=== PATIENT | female | born 1940 | race Caucasian/White ===

== ENCOUNTER 2017-03-09 10:57 | Emergency (ER) | payer MEDICARE, BC ==
[2017-03-09 11:24] VITALS: BP 206/91
--- NOTE | 2017-03-09 11:37 | UC ---
Dental HPI - HPI Summary HPI Summary: Most of her teeth need to be removed, is working with [facility] on this but recently so she has been neglecting her dental health. Sudden increase in pain and swelling on L lower jaw. Denies fever or drainage. Pt has not been taking many of her normal medications lately, including her hypertension meds. - History of Current Complaint Chief Complaint: UCDentalProblem Stated Complaint: DENTAL PAIN Time Seen by Provider: 03/09/17 11:18 Hx Obtained From: Patient ?: No Onset/Duration: Gradual Onset, Lasting Days Severity: Moderate Aggravating: Chewing - Allergies/Home Medications Allergies/Adverse Reactions: Allergies Allergy/AdvReac Type Severity Reaction Status Date / Time Bee Venom Allergy Anaphylatic Verified 08/13/15 14:39 Shock PMH/Surg Hx/FS Hx/Imm Hx Endocrine History Of: Denies: Diabetes Cardiovascular History Of: Reports: Hypertension - does not take her pills Denies: Pacemaker/ICD GI/ History Of: Denies: Renal Disease Psychological History Of: Reports: Anxiety - ON MEDICATION FOR, Depression - ON MEDICATION FOR Cancer History Of: Denies: Breast Cancer - Surgical History Surgical History: Yes Surgery Procedure, Year, and Place: HYSTERECTOMY; LUMBAR DISCECTOMY >5 YRS AGO; Rt LEG BYPASS W/ STENTS; TONSILECTOMY CSP - DISCECTOMY WITH FUSION AND SCREWS; CAROTID ENDARECTOMY -Rt - Family History Known Family History: Positive: Hypertension - Social History Occupation: Retired Lives: Alone Alcohol Use: Daily Alcohol Amount: 6 BEERS PER DAY Substance Use Type: None Smoking Status (MU): Light Every Day Tobacco Smoker Amount Used/How Often: NON FILTERS 1 PPD X 50 YEARS DOWN TO 3 CIGARETTES PER DAY Have You Smoked in the Last Year: Yes Review of Systems Constitutional: Negative Skin: Negative Eyes: Negative ENT: Dental Pain Respiratory: Negative Cardiovascular: Negative Gastrointestinal: Negative Genitourinary: Negative Motor: Negative Neurovascular: Negative Musculoskeletal: Negative Neurological: Negative Psychological: Negative All Other Systems Reviewed And Are Negative: Yes Physical Exam Triage Information Reviewed: Yes Appearance: Well-Appearing, No Pain Distress, Well-Nourished Vital Signs: Initial Vital Signs Temp 98.3 F 03/09/17 11:20 Pulse 91 03/09/17 11:20 Resp 18 03/09/17 11:20 BP 206/91 03/09/17 11:20 Pulse Ox 94 05/15/17 11:20 Vital Signs Reviewed: Yes Eye Exam: Normal Eyes: Positive: Conjunctiva Clear ENT: Positive: Normal ENT inspection, Hearing grossly normal, Pharynx normal, TMs normal. Negative: Tonsillar swelling, Tonsillar exudate Dental: Positive: Percussion Tenderness @ - #12 and 13, Gross Decay/Caries @ - most teeth decayed to gums, Abscess @ - #12 and 13 Respiratory: Positive: Normal breath sounds, Decreased breath sounds Cardiovascular Exam: Normal Cardiovascular: Positive: RRR, No Murmur Musculoskeletal Exam: Normal Musculoskeletal: Positive: ROM Intact Neurological Exam: Normal Neurological: Positive: Alert Psychological Exam: Normal Skin Exam: Normal Dental Complaint Course/Dx - Course Course Of Treatment: Educated pt on importance of taking HTN meds, pt states she will take them all week leading up to her PCP apt on Thursday - Differential Dx/Diagnosis Provider Diagnoses: Dental abscess. hypertension Discharge - Discharge Plan Condition: Stable Disposition: HOME Prescriptions: Penicillin VK TAB 500 MG(NF) [Penicillin VK 500 mg Tab(NF)] 500 mg PO TID #21 tab Patient Education Materials: Dental Abscess (ED), Hypertension (ED) Referrals: Bhupinder Cruz MD [Primary Care Provider] - 4 Days Additional Instructions: Re-start taking blood pressure medicine and follow up with your primary care provider as planned on Thursday! If you have severe head pain, chest pain, trouble breathing, confusion, or trouble with your coordination at any time, please dial 911. Follow up with Delilah Leon to help with your dental care.
== END 2017-03-09 11:43 | disposition home or self-care (01) ==
LOC: UCEAST 10:57
DX: K04.7 Periapical abscess without sinus (principal); I10 Essential (primary) hypertension; F41.8 Other specified anxiety disorders; Z90.710 Acquired absence of both cervix and uterus; Z91.030 Bee allergy status; F17.210 Nicotine dependence, cigarettes, uncomplicated
CPT/HCPCS: 99212; G0463

== ENCOUNTER 2017-03-26 11:08 | Inpatient (IN) | payer MEDICARE, BC ==
[2017-03-26] MEDS ORDERED: NS 0.9% 1000 ML* 1,000 ML IV ONE (11:29)
[2017-03-26] MEDS ORDERED: Pantoprazole IV* 40 MG IV ONE (11:29)
[2017-03-26 12:11] LABS: Hematocrit 32 % (35-47); Hemoglobin 10.6 g/dl (12.0-16.0); Mean Corpuscular HGB Conc 33 g/dl (31-36); Mean Corpuscular Hemoglobin 31 pg (27-31); Mean Corpuscular Volume 93 fL (80-97); Mean Platelet Volume 7 um3 (7.4-10.4); Red Blood Count 3.46 10^6/ul (4.0-5.4); Red Cell Distribution Width 13 % (10.5-15); White Blood Count 9.5 10^3/ul (3.5-10.8)
[2017-03-26] MEDS: Pantoprazole IV* 80 MG in NS 0.9% 250 ML* 250 ML IV SCH ×2 (12:20→23:39)
[2017-03-26 12:23] LABS: Albumin 3.3 g/dL (3.2-5.2); BUN/Creatinine Ratio 47.4 (8-20); Calcium 8.9 mg/dL (8.6-10.3); EGFR African American 92.3 (>60); EGFR Non-African American 71.8 (>60); Globulin 2.9 g/dL (2-4); Potassium 3.9 mmol/L (3.5-5.0); Total Bilirubin 0.7 mg/dL (0.2-1.0); Total Protein 6.2 g/dL (6.4-8.9)
[2017-03-26] MEDS ORDERED: Albuterol HFA INHALER* 8 gm MDI INH PRN (13:57)
[2017-03-26] MEDS ORDERED: Albuterol/Ipratropium NEB.SOL* Albuterol 2.5 MG/Ipratropium 0.5 MG 3 ML INH PRN (13:57)
[2017-03-26] MEDS ORDERED: Cyclobenzaprine TAB* 10 MG PO PRN (13:57)
[2017-03-26] MEDS ORDERED: Spiriva Inhaler DEVICE* 1 EACH DEVICE INH ONE (15:00)
[2017-03-26] MEDS: NS 0.9% 1000 ML* 1,000 ML IV SCH (15:43)
--- NOTE | 2017-03-26 16:54 | CONS ---
GASTROENTEROLOGY CONSULTATION DATE OF CONSULTATION: 03/26/2017. REASON FOR CONSULTATION: Question GI bleed. HISTORY OF PRESENT ILLNESS: This is a 77-year-old woman with a past medical history notable for hypertension, peripheral vascular disease, and COPD. Yesterday, she had extraction of multiple teeth in her mouth due to poor dentition and was discharged from the dentist office. Last night she had excessive bleeding from her mouth from the dental extraction, which eventually calmed down. She awoke this morning and did have a significant amount of blood in the bed as well as had one to two black stools. She presented to the emergency room where she was hemodynamically stable. She denies any prior history of melena preceding this. She denies any abdominal pain. She has had gastro-intestinal work-up in the past. In 2014, she underwent an upper endoscopy for abdominal discomfort and was found to have mild antral gastritis. At that time, she also had a colonoscopy where a small polyp was removed and she also had sigmoid diverticulosis. Overall, she has been feeling generally well lately. PAST MEDICAL HISTORY: Includes, COPD, hypertension, hyperlipidemia and peripheral vascular disease. MEDICATIONS: Her medicines she states that she has not been compliant with, but do include Albuterol inhaler, adult aspirin, Lipitor, Wellbutrin, Plavix, Hydrochlorothiazide, Lisinopril, Omeprazole, Paxil, Spiriva. Of note, the patient states that she did not take her Plavix for quite some time. REVIEW OF SYSTEMS: She denies any abdominal pain, dysphagia, or heartburn. PHYSICAL EXAM: The patient is a well-appearing woman in no acute distress. She is edentulous. Vital Signs: Blood pressure is 146/63, heart rate is 94 and regular. Lungs: Clear. Cardiac: Exam reveals a regular rhythm without murmur. Abdomen: Soft without tenderness. Bowel sounds are normoactive. DIAGNOSTIC STUDIES/LAB DATA: Data included a hemoglobin of 10.6, compared to July of 2016 it was 14.1; BUN of 37; creatinine of 0.78. IMPRESSION: [id number]-old woman with an extensive dental extraction yesterday, presenting with excessive bleeding postoperatively and now with black stools. It seems quite likely that the black stools are from swallowed blood, not from a primary gastrointestinal process. She will be admitted for observation and if she does have persistent melena or a drop in her hemoglobin, now that her oral bleeding has stopped, then we can consider an upper endoscopy. [id number]/[facility] #: [id number] CHRISTAL
[2017-03-26] MEDS: PARoxetine HCL TAB* 20 MG PO SCH (20:38)
[2017-03-26] MEDS: traZODone TAB* 50 MG TAB PO PRN (21:12)
[2017-03-26 21:40] LABS: Hematocrit 26 % (35-47); Hemoglobin 8.6 g/dl (12.0-16.0)
--- NOTE | 2017-03-26 22:10 | HP ---
HOSPITAL MEDICINE HISTORY AND PHYSICAL: DATE OF ADMISSION: 03/26/17 PRIMARY CARE PHYSICIAN: Dr. Means. ATTENDING PHYSICIAN: Dr. Elana Caldera *(dictation provided by Taniya Joyner NP) . CHIEF COMPLAINT: Dark tarry stool. HISTORY OF PRESENT ILLNESS: Ms. Frias is a 77-year-old female with a past medical history of COPD with continued smoking, hypertension, hyperlipidemia, who presents today to the hospital with concern for black stools. Ms. Frias states that she was feeling in her normal state of health up until yesterday at which time she had 10 teeth removed from her lower jaw at the dentist's office. Returning home, she had significant bleeding. She was able to sleep through the night. When she woke in the morning, she felt dizzy. When going to let her dogs out, she states she collapsed to the floor, but did not lose consciousness. She went to lie on the couch for a bit and then got up and crawled to the bathroom where she had 2 soft black stools. She had an additional black stool in the emergency room. Ms. Frias is noted per her pharmacy to be on aspirin and Plavix. She states that she is not consistent with taking any of her medications and has not taken them recently. She denies any other complaints. She was feeling well before the teeth were removed. She has had no recent fevers, chills, cough, chest pain, or shortness of breath. She said she felt a little bit nauseous with some lower abdominal pain this morning, but it was very mild. In the emergency room, Ms. Frias had labs which showed mild anemia with a hemoglobin of 10.6. Her last hemoglobin on 08/19/16 was 14.1. Her BUN is elevated to 37. Creatinine is normal. PAST MEDICAL HISTORY: Hypertension; hyperlipidemia; peripheral vascular disease ; COPD, on 2 L nasal cannula at home; degenerative disk disease. PAST SURGICAL HISTORY: Tonsillectomy and appendectomy as a child; partial hysterectomy, ovaries intact, 2006; cervical diskectomy, C5-C6 and C6-C7, with fusion and plating, 2010; lumbar laminectomy to L3-4, L4-5, in 2011; right external iliac artery stenting; left carotid endarterectomy, February 2014. MEDICATIONS: 1. Albuterol sulfate 2 puffs inhaled four times a day p.r.n. 2. Aspirin 325 mg p.o. daily. 3. Atorvastatin 80 mg p.o. q.p.m. 4. Bupropion XL 150 mg p.o. daily. 5. Clopidogrel 75 mg p.o. q.p.m. 6. Cyanocobalamin 1000 mcg p.o. daily. 7. Hydrochlorothiazide 25 mg p.o. daily. 8. Lisinopril 10 mg p.o. q.p.m. 9. Omeprazole 20 mg p.o. daily. 10. Trazodone 50 to 100 mg p.o. bedtime p.r.n. 11. Albuterol inhaler p.r.n. 12. Albuterol nebulizer p.r.n. 13. Cyclobenzaprine 10 mg p.o. t.i.d. p.r.n. 14. Paroxetine 20 mg p.o. q.p.m. 15. Spiriva 1 cap inhaled daily. ALLERGIES: BEE VENOM. FAMILY HISTORY: Mother at age 62 with unknown cause. Father had lung cancer, he was a smoker and at age 48. Brother had a MD at 47. Paternal grandfather from rectal cancer. SOCIAL HISTORY: The patient is a continued smoker, but she says she is down to 3 cigarettes a day. She states she drinks 4 beers per day. She never had any symptoms of alcohol withdrawal. She would like her daughter, Kaylah Hutchinson, and her son, Eduardo Carvajal, to be the healthcare proxies. REVIEW OF SYSTEMS: A 14-point review of systems was completed with Ms. Lee and all those not mentioned above were negative. PHYSICAL EXAMINATION VITAL SIGNS: Temperature 97.1, heart rate 97, respiratory rate 25, O2 saturation 91% on room air, blood pressure 128/61. ASSESSMENT AND PLAN: Ms. Lee is a 77-year-old female with past medical history of chronic obstructive pulmonary disease, hypertension, hyperlipidemia, and peripheral vascular disease, who presents to the hospital today with concern for black stool in the setting of bleeding after extraction of 10 teeth yesterday. Our plans are for observation in the hospital for the followin. Black tarry stools with concern for upper gastrointestinal bleed: It is possible that the patient has an upper gastrointestinal bleed. She is noted to be on aspirin and Plavix but states she does not take it with any consistency or frequency and has not taken them recently. She reports significant bleeding from her teeth and perhaps the dark tarry stools are just reflective of that; however, she seems to have bled quite profusely as she was dizzy and significantly weak at home. Our plans will be to recheck hemoglobin later this evening. Gastroenterology has been called and Dr. Coaets will be seeing the patient in consultation. A Protonix drip has been started. The patient will have 2 large bore IVs at all times. Her antihypertensives will be held. She will have a clear liquid diet. 2. High blood pressure: The patient's blood pressure is in the 120s right now. Plan to hold her hydrochlorothiazide and lisinopril. 3. Hyperlipidemia: Resume her atorvastatin when she is taking oral. 4. DVT prophylaxis: With SCDs only in the setting of the gastrointestinal bleed. 5. Code status is DNR and a MOLST form is completed. TIME SPENT: Approximately 60 minutes was spent on the admission of this patient , more than half the time was spent with her at the bedside reviewing the events leading up to this hospitalization, performing the physical examination, and reviewing the plan of care. TANIYA JOYNER NP CC: Dr. Means* [id number]/[facility] #: [id number] MTDWalter
[2017-03-27] MEDS: NS 0.9% 1000 ML* 1,000 ML IV SCH ×2 (00:43→23:50)
[2017-03-27 01:06] LABS: Hematocrit 24 % (35-47); Hemoglobin 7.8 g/dl (12.0-16.0)
[2017-03-27] MEDS: Tiotropium CAP.INH* CAP.INH/18 MCG INH SCH (07:58)
[2017-03-27 08:44] LABS: Hematocrit 28 % (35-47); Hemoglobin 9.2 g/dl (12.0-16.0)
--- NOTE | 2017-03-27 09:45 | ED ---
Carlos Winn Benjamin, scribed for Abimael Rodriguez MD on 03/26/17 at 1133 . GI/ HPI - HPI Summary HPI Summary: 77yo female BIB EMS for rectal bleeding. Pt is s/p dental extraction of her lower teeth yesterday. There is no signs of trauma, and pt was found in bed covered in bright red blood this morning by her daughter. Per pt, she has been bleeding since last night. Pt has chronic cough. No prior rectal bleeding hx but hx of COPD. Pt is a heavy drinker and a smoker. blood sugar was 141 en route. - History of Current Complaint Chief Complaint: EDGIBleed Time Seen by Provider: 03/26/17 11:26 Stated Complaint: BLEED Hx Obtained From: Patient, EMS Onset/Duration: Started Hours Ago, Atraumatic, Resolved Timing: Constant Severity: Mild Current Severity: Mild Vaginal Bleeding Description: Bright Red Pain Intensity: 3 Associated Signs and Symptoms: Positive: Cough - chronic, Other: - rectal bleeding - Allergy/Home Medications Allergies/Adverse Reactions: Allergies Allergy/AdvReac Type Severity Reaction Status Date / Time Bee Venom Allergy Anaphylatic Verified 03/26/17 11:16 Shock Home Medications: Home Medications Albuterol HFA INHALER* [Ventolin HFA Inhaler*] 2 puff INH QID PRN 03/26/17 [ History Confirmed 03/26/17] Albuterol Sulfate [Proair Respiclick] 2 puff INH QID PRN 03/26/17 [History Confirmed 03/26/17] Albuterol/Ipratropium NEB.BEBETO* [Duoneb (Albuterol 2.5 MG/Ipratropium 0.5 MG)] 1 neb INH QID PRN 03/26/17 [History Confirmed 03/26/17] Aspirin TAB* [Aspirin 325 MG TAB*] 325 mg PO DAILY 03/26/17 [History Confirmed 03/26/17] Bupropion XL* [Wellbutrin XL *] 150 mg PO DAILY 03/26/17 [History Confirmed 11/11] Cyanocobalamin TAB* [Vitamin B12 TAB*] 1,000 mcg PO DAILY 03/26/17 [History Confirmed 03/26/17] Cyclobenzaprine TAB* [Flexeril 10 MG TAB*] 10 mg PO TID PRN 03/26/17 [History Confirmed 03/26/17] Omeprazole CAP* [Prilosec CAP* 20 MG] 20 mg PO DAILY 03/26/17 [History Confirmed 03/26/17] Tiotropium CAP.INH* [Spiriva CAP.INH*] 1 cap.inh INH DAILY 03/26/17 [History Confirmed 03/26/17] PMH/Surg Hx/FS Hx/Imm Hx Endocrine/Hematology History: Denies: Hx Diabetes Cardiovascular History: Reports: Hx Coronary Artery Disease - LEFT CAROTID ENDARTERECTOMY-2013- LEFT-JUAN, Hx Hypertension - does not take her pills, Hx Peripheral Vascular Disease - RIGHT LEG SURGERY- VASCULAR- 3 YEARS AGO-JUAN Denies: Hx Pacemaker/ICD Respiratory History: Comment Only: Other Respiratory Problems/Disorders - COPD History: Denies: Hx Renal Disease Sensory History: Reports: Hx Cataracts - BILATERAL, Hx Contacts or Glasses - GLASSES Denies: Hx Hearing Aid Opthamlomology History: Reports: Hx Cataracts - BILATERAL, Hx Contacts or Glasses - GLASSES Psychiatric History: Reports: Hx Anxiety - ON MEDICATION FOR, Hx Depression - ON MEDICATION FOR Denies: Hx Panic Disorder - Cancer History Hx Chemotherapy: No Hx Radiation Therapy: No - Surgical History Surgery Procedure, Year, and Place: HYSTERECTOMY; LUMBAR DISCECTOMY >5 YRS AGO; Rt LEG BYPASS W/ STENTS; TONSILECTOMY CSP - DISCECTOMY WITH FUSION AND SCREWS; CAROTID ENDARECTOMY -Rt Hx Anesthesia Reactions: No Infectious Disease History: No Infectious Disease History: Denies: Traveled Outside the [place] in Last 30 Days - Family History Known Family History: Positive: Hypertension - Social History Occupation: Retired Lives: Alone Alcohol Use: Daily Alcohol Amount: 6 BEERS PER DAY Substance Use Type: Reports: None Smoking Status (MU): Light Every Day Tobacco Smoker Amount Used/How Often: NON FILTERS 1 PPD X 50 YEARS DOWN TO 3 CIGARETTES PER DAY Have You Smoked in the Last Year: Yes Review of Systems Constitutional: Negative Eyes: Negative ENT: Negative Cardiovascular: Negative Positive: Cough Gastrointestinal: Other - rectal bleeding Genitourinary: Negative Musculoskeletal: Negative Skin: Negative Neurological: Negative Psychological: Normal All Other Systems Reviewed And Are Negative: Yes Physical Exam Triage Information Reviewed: Yes Vital Signs On Initial Exam: Initial Vitals Temp Pulse Resp BP Pulse Ox 97.1 F 91 24 125/54 95 03/26/17 11:14 03/26/17 11:14 03/26/17 11:14 03/26/17 11:14 03/26/17 11:14 Vital Signs Reviewed: Yes Appearance: Positive: Well-Appearing - No current bleeding, No Pain Distress, Well-Nourished Skin: Positive: Warm, Skin Color Reflects Adequate Perfusion, Dry Head/Face: Positive: Normal Head/Face Inspection Eyes: Positive: Other: - recent dental extraction of the lower jaw . No current bleeding ENT: Positive: Normal ENT inspection Neck: Positive: Supple, Nontender Respiratory/Lung Sounds: Positive: Clear to Auscultation, Breath Sounds Present Cardiovascular: Positive: RRR Abdomen Description: Positive: Nontender, Soft Bowel Sounds: Positive: Present Musculoskeletal: Positive: Normal Neurological: Positive: Normal Psychiatric: Positive: Affect/Mood Appropriate Diagnostics - Vital Signs Vital Signs Temp Pulse Resp BP Pulse Ox 03/26/17 11:14 97.1 F 91 24 125/54 95 - Laboratory Lab Results: Lab Results 03/26/17 03/26/17 03/26/17 Range/Units 11:20 11:20 11:20 WBC 9.5 (3.5-10.8) 10^3/ul RBC 3.46 L (4.0-5.4) 10^6/ul Hgb 10.6 L (12.0-16.0) g/dl Hct 32 L (35-47) % MCV 93 (80-97) fL MCH 31 (27-31) pg MCHC 33 (31-36) g/dl RDW 13 (10.5-15) % Plt Count 324 (150-450) 10^3/ul MPV 7 L (7.4-10.4) um3 Neut % (Auto) 83.3 H (38-83) % Lymph % (Auto) 10.4 L (25-47) % [place] % (Auto) 5.6 (1-9) % Eos % (Auto) 0.1 (0-6) % Baso % (Auto) 0.6 (0-2) % Absolute Neuts (auto) 7.9 H (1.5-7.7) 10^3/ul Absolute Lymphs (auto) 1.0 (1.0-4.8) 10^3/ul Absolute Monos (auto) 0.5 (0-0.8) 10^3/ul Absolute Eos (auto) 0 (0-0.6) 10^3/ul Absolute Basos (auto) 0.1 (0-0.2) 10^3/ul Absolute Nucleated RBC 0 10^3/ul Nucleated RBC % 0 INR (Anticoag Therapy) 0.94 (0.89-1.11) APTT 27.4 (26.0-36.3) seconds Sodium (133-145) mmol/L Potassium (3.5-5.0) mmol/L Chloride (101-111) mmol/L Carbon Dioxide (22-32) mmol/L Anion Gap (2-11) mmol/L BUN (6-24) mg/dL Creatinine (0.51-0.95) mg/dL Est GFR ( Amer) (>60) Est GFR (Non-Af Amer) (>60) BUN/Creatinine Ratio (8-20) Glucose (70-100) mg/dL Calcium (8.6-10.3) mg/dL Total Bilirubin (0.2-1.0) mg/dL AST (13-39) U/L ALT (7-52) U/L Alkaline Phosphatase (34-104) U/L Total Protein (6.4-8.9) g/dL Albumin (3.2-5.2) g/dL Globulin (2-4) g/dL Albumin/Globulin Ratio (1-3) Blood Type O Positive Antibody Screen Negative Crossmatch See Detail 03/26/17 Range/Units 11:20 WBC (3.5-10.8) 10^3/ul RBC (4.0-5.4) 10^6/ul Hgb (12.0-16.0) g/dl Hct (35-47) % MCV (80-97) fL MCH (27-31) pg MCHC (31-36) g/dl RDW (10.5-15) % Plt Count (150-450) 10^3/ul MPV (7.4-10.4) um3 Neut % (Auto) (38-83) % Lymph % (Auto) (25-47) % [place] % (Auto) (1-9) % Eos % (Auto) (0-6) % Baso % (Auto) (0-2) % Absolute Neuts (auto) (1.5-7.7) 10^3/ul Absolute Lymphs (auto) (1.0-4.8) 10^3/ul Absolute Monos (auto) (0-0.8) 10^3/ul Absolute Eos (auto) (0-0.6) 10^3/ul Absolute Basos (auto) (0-0.2) 10^3/ul Absolute Nucleated RBC 10^3/ul Nucleated RBC % INR (Anticoag Therapy) (0.89-1.11) APTT (26.0-36.3) seconds Sodium 135 (133-145) mmol/L Potassium 3.9 (3.5-5.0) mmol/L Chloride 101 (101-111) mmol/L Carbon Dioxide 28 (22-32) mmol/L Anion Gap 6 (2-11) mmol/L BUN 37 H (6-24) mg/dL Creatinine 0.78 (0.51-0.95) mg/dL Est GFR ( Amer) 92.3 (>60) Est GFR (Non-Af Amer) 71.8 (>60) BUN/Creatinine Ratio 47.4 H (8-20) Glucose 137 H (70-100) mg/dL Calcium 8.9 (8.6-10.3) mg/dL Total Bilirubin 0.70 (0.2-1.0) mg/dL AST 22 (13-39) U/L ALT 11 (7-52) U/L Alkaline Phosphatase 48 (34-104) U/L Total Protein 6.2 L (6.4-8.9) g/dL Albumin 3.3 (3.2-5.2) g/dL Globulin 2.9 (2-4) g/dL Albumin/Globulin Ratio 1.1 (1-3) Blood Type Antibody Screen Crossmatch Result Diagrams: 03/27/17 08:30 03/26/17 11:20 Lab Statement: Any lab studies that have been ordered have been reviewed, and results considered in the medical decision making process. GIGU Course/Dx - Course Course Of Treatment: Discussed with Dr. Coates (GI) at 13:38. Assessment/Plan: Ms. Jesus Frias was found this AM with a lot of blood on the bed (not on the pillow) and had passed a black stool. She did have several dental extractions yesterday and admits to swallowing blood but this would seem to be too much blood for that mechanism and she is not bleeding actively from her gums on arrival. She is a consistent ETOH drinker. She had lines started and was given fluids while her labs were checked. She was reportedly poorly responsive and quite hypotensive for EMS. She was awake and alert by the time she got here and her BP was 80/60. - Diagnoses Provider Diagnoses: GI bleed - Physician Notifications Discussed Care Of Patient With: Dr. Caldera Instructed by Provider To: Admit As Inpatient - Critical Care Time Critical Care Time: 30-74 min Discharge - Discharge Plan Condition: Guarded Disposition: ADMITTED TO [facility] The documentation as recorded by the Carlos winkler Benjamin accurately reflects the service I personally performed and the decisions made by me, Abimael Rodriguez MD.
[2017-03-27] MEDS: Pantoprazole IV* 80 MG in NS 0.9% 250 ML* 250 ML IV SCH (09:49)
--- NOTE | 2017-03-27 10:44 | PN ---
Subjective Date of Service: 03/27/17 Interval History: Patient seen and examined at bedside. Pt states that she is feeling better this morning. She reports that the lightheadedness has improved since she received at unit of blood last night. Pt states that she continued to have bleeding from her gums after her arrival to the ED, but is unsure when it stopped. Pt reports that her stool this morning is more brown in color, but continues to have some black coloring. Denies fever, chills, shortness of breath, chest discomfort, N/V /D. Family History: Unchanged from Admission Social History: Unchanged from Admission Past Medical History: Unchanged from Admission Objective Active Medications: Albuterol (Ventolin Hfa Inhaler*) 2 puff INH QID PRN Reason: SHORTNESS OF BREATH Albuterol/Ipratropium (Duoneb (Albuterol 2.5 Mg/Ipratropium 0.5 Mg)) 1 neb INH QID PRN Reason: SHORTNESS OF BREATH Cyclobenzaprine HCl (Flexeril Tab*) 10 mg PO TID PRN Reason: SPASMS - MUSCLE Pantoprazole Sodium 80 mg/ (Sodium Chloride) 250 mls @ 25 mls/hr IV Q10H ROJAS Sodium Chloride (Ns 0.9% 1000 Ml*) 1,000 mls @ 150 mls/hr IV PER RATE ROJAS Paroxetine HCl (Paxil Tab*) 20 mg PO 2100 ROJAS Tiotropium [place] (Spiriva Cap.Inh*) 1 cap INH DAILY ROJAS Trazodone HCl (Desyrel Tab*) 50 mg PO BEDTIME PRN Reason: PAIN Vital Signs 03/26/17 03/26/17 03/26/17 13:30 15:00 19:39 Temperature 98.8 F Pulse Rate 43 94 96 Respiratory 25 20 20 Rate Blood Pressure 90/47 146/63 (mmHg) O2 Sat by Pulse 73 100 96 Oximetry 03/26/17 03/26/17 03/27/17 19:52 23:28 02:25 Temperature 98.3 F 99.3 F Pulse Rate 92 95 94 Respiratory 20 16 20 Rate Blood Pressure 150/60 156/46 (mmHg) O2 Sat by Pulse 96 94 96 Oximetry 03/27/17 03/27/17 03/27/17 04:01 04:27 04:49 Temperature 98.4 F 98.8 F 98.7 F Pulse Rate 90 81 84 Respiratory 16 24 26 Rate Blood Pressure 128/47 135/62 138/68 (mmHg) O2 Sat by Pulse 95 100 100 Oximetry 03/27/17 03/27/17 08:00 08:02 Temperature Pulse Rate 90 Respiratory 18 Rate Blood Pressure (mmHg) O2 Sat by Pulse 98 98 Oximetry Oxygen Devices in Use Now: None Appearance: NAD, sitting up in bed Eyes: No Scleral Icterus Respiratory: Symmetrical Chest Expansion and Respiratory Effort, Clear to Auscultation Cardiovascular: NL Sounds; No Murmurs; No JVD, RRR Abdominal: NL Sounds; No Tenderness; No Distention Extremities: No Edema Skin: No Rash or Ulcers Neurological: Alert and Oriented x 3, NL Muscle Strength and Tone Lines/Tubes/Other Access: Clean, Dry and Intact Peripheral IV - site benign Nutrition: Taking PO's Result Diagrams: 03/27/17 08:30 03/26/17 11:20 Assess/Plan/Problems-Billing Assessment: Ms. Missy Frias is a 77 yo female with PMH significant for COPD, HTN, HLD who presented to the emergency room with concern for black stools. She had 10 teeth extracted from her lower jaw on 03/25/17. - Patient Problems (1) GI bleeding Code(s): K92.2 - GASTROINTESTINAL HEMORRHAGE, UNSPECIFIED SNOMED Code(s): 58980321 Comment: - Suspect this is bleeding from gums - HH continued to drop overnight - Pt required a unit of RBCs last night - HH improved this morning after RBCs last night - GI consult, appreciate input. Will touch base with them today about possible EDG - Continue protonix gtt - Continue to trend HH (2) HTN (hypertension) Code(s): I10 - ESSENTIAL (PRIMARY) HYPERTENSION SNOMED Code(s): 67575442 Comment: - SBP 90-150's. - Continue to hold Lisinopril and HCTZ for now (3) HLD (hyperlipidemia) Code(s): E78.5 - HYPERLIPIDEMIA, UNSPECIFIED SNOMED Code(s): 54309877 Comment: - Resume atorvastatin when advanced from a clear liquid diet (4) COPD (chronic obstructive pulmonary disease) Code(s): J44.9 - CHRONIC OBSTRUCTIVE PULMONARY DISEASE, UNSPECIFIED SNOMED Code(s): 01073822 Comment: - No signs of exacerbation - Pt uses 2L O2 at home - Continue Spiriva and albuterol PRN (5) DVT prophylaxis Code(s): URI6790 - SNOMED Code(s): 364633548 Comment: - SCDs and encouraged ambulation - Chemical DVT prophylaxis contraindicated in setting of possible GI bleed (6) DNR (do not resuscitate) Status and Disposition: OBV. Discharge to home when medically stable, possibly later today.
[2017-03-27 14:30] LABS: Hematocrit 28 % (35-47); Hemoglobin 8.9 g/dl (12.0-16.0)
[2017-03-27] MEDS: Omeprazole CAP* 20 MG PO SCH (15:00)
[2017-03-27] MEDS: traZODone TAB* 50 MG TAB PO PRN (21:30)
[2017-03-27] MEDS: PARoxetine HCL TAB* 20 MG PO SCH (21:30)
[2017-03-27 21:31] LABS: Hematocrit 27 % (35-47)
[2017-03-28] MEDS: Omeprazole CAP* 20 MG PO SCH (05:40)
[2017-03-28] MEDS ORDERED: NS 0.9% 1000 ML* 1,000 ML IV SCH (07:09)
[2017-03-28 07:22] LABS: Hematocrit 28 % (35-47); Hemoglobin 9.2 g/dl (12.0-16.0)
[2017-03-28 07:45] VITALS: BP 154/69
[2017-03-28] MEDS: Tiotropium CAP.INH* CAP.INH/18 MCG INH SCH (08:27)
--- NOTE | 2017-03-28 09:39 | PN ---
Subjective Date of Service: 03/28/17 Interval History: Patient seen and examined at bedside. Pt states that she is feeling well and is anxious for discharge to home. Denies fever, chills, chest discomfort, N/V/D. Pt states that her shortness of breath is a baseline. Reports that she continues to have brown stools and has not noted blood for black coloring in her stool. Family History: Unchanged from Admission Social History: Unchanged from Admission Past Medical History: Unchanged from Admission Objective Active Medications: Albuterol (Ventolin Hfa Inhaler*) 2 puff INH QID PRN Reason: SHORTNESS OF BREATH Albuterol/Ipratropium (Duoneb (Albuterol 2.5 Mg/Ipratropium 0.5 Mg)) 1 neb INH QID PRN Reason: SHORTNESS OF BREATH Cyclobenzaprine HCl (Flexeril Tab*) 10 mg PO TID PRN Reason: SPASMS - MUSCLE Sodium Chloride (Ns 0.9% 1000 Ml*) 1,000 mls @ 100 mls/hr IV PER RATE ROJAS Omeprazole (Prilosec Cap*) 20 mg PO 0600 ROJAS Paroxetine HCl (Paxil Tab*) 20 mg PO 2100 ROJAS Tiotropium [place] (Spiriva Cap.Inh*) 1 cap INH DAILY ROJAS Trazodone HCl (Desyrel Tab*) 50 mg PO BEDTIME PRN Reason: PAIN Vital Signs 03/27/17 03/27/17 03/27/17 16:17 19:54 20:00 Temperature 97.8 F 98.4 F Pulse Rate 72 78 Respiratory 18 16 16 Rate Blood Pressure 145/69 141/77 (mmHg) O2 Sat by Pulse 100 98 Oximetry 03/27/17 03/28/17 03/28/17 23:40 02:39 07:31 Temperature 98.5 F 97.4 F 98.3 F Pulse Rate 86 80 84 Respiratory 17 18 Rate Blood Pressure 139/43 158/69 154/69 (mmHg) O2 Sat by Pulse 97 97 100 Oximetry 03/28/17 08:28 Temperature Pulse Rate 94 Respiratory 16 Rate Blood Pressure (mmHg) O2 Sat by Pulse 98 Oximetry Oxygen Devices in Use Now: None Appearance: NAD, sitting up in bed. Eyes: No Scleral Icterus Respiratory: Symmetrical Chest Expansion and Respiratory Effort, Clear to Auscultation Cardiovascular: NL Sounds; No Murmurs; No JVD, RRR Abdominal: NL Sounds; No Tenderness; No Distention Extremities: No Edema Skin: No Rash or Ulcers Neurological: Alert and Oriented x 3, NL Muscle Strength and Tone Lines/Tubes/Other Access: Clean, Dry and Intact Peripheral IV - site benign Nutrition: Taking PO's Result Diagrams: 03/28/17 06:40 03/26/17 11:20 Additional Lab and Data: Assess/Plan/Problems-Billing Assessment: Ms. Missy Frias is a 77 yo female with PMH significant for COPD, HTN, HLD who presented to the emergency room with concern for black stools. She had 10 teeth extracted from her lower jaw on 03/25/17. - Patient Problems (1) GI bleeding Code(s): K92.2 - GASTROINTESTINAL HEMORRHAGE, UNSPECIFIED SNOMED Code(s): 20746549 Comment: - Suspect this is bleeding from gums - Received 1 unit of RBCs - HH stable - GI consult, appreciate input (2) HTN (hypertension) Code(s): I10 - ESSENTIAL (PRIMARY) HYPERTENSION SNOMED Code(s): 85382999 Comment: - SBP 90-150's. - Resume Lisinopril and HCTZ (3) HLD (hyperlipidemia) Code(s): E78.5 - HYPERLIPIDEMIA, UNSPECIFIED SNOMED Code(s): 53468770 Comment: - Resume atorvastatin (4) COPD (chronic obstructive pulmonary disease) Code(s): J44.9 - CHRONIC OBSTRUCTIVE PULMONARY DISEASE, UNSPECIFIED SNOMED Code(s): 42134938 Comment: - No signs of exacerbation - Pt uses 2L O2 at home - Continue Spiriva and albuterol PRN (5) DVT prophylaxis Code(s): PXY2237 - SNOMED Code(s): 410749997 Comment: - SCDs and encouraged ambulation - Chemical DVT prophylaxis contraindicated in setting of possible GI bleed (6) DNR (do not resuscitate) Status and Disposition: Inpatient. Stable for discharge to home today.
--- NOTE | 2017-03-29 07:10 | DS ---
DISCHARGE SUMMARY: DATE OF ADMISSION: 03/26/17 DATE OF DISCHARGE: 03/28/17 ATTENDING PHYSICIAN: Dr. Justin Brooks *(dictated by Yessenia Gr NP). PRIMARY DIAGNOSIS: Oral bleeding after dental extractions. SECONDARY DIAGNOSES: 1. Hypertension. 2. Hyperlipidemia. CONSULTATIONS WHILE IN THE HOSPITAL: Dr. Eloy Coates and Dr. Tyrell Fortune with Gastroenterology. DISCHARGE MEDICATIONS: Continued home medications: 1. Trazodone 50 to 100 mg oral daily at bedtime as needed for insomnia. 2. Paxil 20 mg oral daily every evening. 3. Lisinopril 10 mg oral every evening. 4. Atorvastatin 80 mg oral every evening. 5. Hydrochlorothiazide 25 mg oral daily. 6. Vitamin B12 1000 mcg oral daily. 7. Albuterol/ipratropium neb, 1 neb inhalation 4 times daily as needed for shortness of breath. 8. Flexeril 10 mg oral 3 times daily as needed for muscle spasms. 9. Albuterol HFA 2 puffs inhalation 4 times daily as needed for shortness of breath. 10. Bupropion XL 150 mg oral daily. 11. Spiriva 1 capsule inhalation daily. 12. Albuterol/ProAir RespiClick 2 puffs inhalation 4 times daily as needed for shortness of breath. 13. Omeprazole 20 mg oral daily. Discontinued medications: Plavix and aspirin. HISTORY OF PRESENT ILLNESS/HOSPITAL COURSE: Ms. Jesus Frias is a 77-year-old female with past medical history significant for COPD, tobacco abuse, hypertension, hyperlipidemia, who presented to the hospital with concern of black stools starting after she had 10 teeth removed from her lower jaw. The patient reported significant bleeding. When she woke up in the morning, she was feeling dizzy. She collapsed due to dizziness and weakness, but did not lose consciousness. The patient lied down for a bit, got to the bathroom and had two soft black stools. The patient denied any history of previous black stools. The patient presented to the emergency room for further evaluation of her symptoms. While in the emergency room, the patient had an additional black stool. The patient denied any other complaints. Hospitalists were asked to evaluate the patient for admission. During the patient's hospitalization, her H and H were trended down to 7.8 and 26. The patient received 1 unit of packed red blood cells due to being symptomatic with dizziness. After that, the patient continued to have stable H and Hs. The patient was seen in consultation by Gastroenterology, who felt that most likely this did not represent an upper GI bleed but instead was a result of the patient swallowing blood from her bleeding gums. Ms. Jesus Frias is stable for discharge to home today. Vital signs are as follows: Temperature 98.3, heart rate 84, respiratory rate 18, O2 sat 100% on 2 L via nasal cannula, blood pressure 154/69. DISCHARGE PLAN: Ms. Jesus Frias will be discharged to home. Activity as tolerated. She has been encouraged to eat soft diet as her gums heal, to not cause more bleeding. At this point, the patient's bleeding has stopped. As far as the patient's routine medications, she has been asked to hold her aspirin and Plavix until she is seen in followup with her primary care provider , Dr. Cruz. The patient has been asked to call Dr. Cruz's office on Thursday to set up a followup appointment. The patient has been asked to return to the emergency room for any chest pain, shortness of breath above her baseline, or signs of bleeding such as bloody or black stools. It appears the patient was previously taking omeprazole. This has been continued in the event this could possibly represent a small bleeding gastric ulcer. This is a summarized report of a complex medical history and hospital stay. For further details, please see the entire medical record. TIME SPENT: Time for this discharge was 60 minutes and greater than half of that was spent face- to-face with the patient, discussing discharge plans and instructions. CONDITION ON DISCHARGE: Stable. YESSENIA GR NP CC: Dr. Cruz* [id number]/[facility] #: [id number] CHRISTAL
== END 2017-03-28 11:25 | disposition home or self-care (01) | DRG 920 ==
LOC: ED 11:08 → MED 13:25 → OBSVTOIN 03-27 13:52
PROVIDERS: ADMIT Hospitalist; ATTEND Hospitalist
PROC: 30233N1 Transfusion of Nonautologous Red Blood Cells into Peripheral Vein, Percutaneous Approach (ICD-10-PCS; principal; 2017-03-27)
DX: K91.840 Postprocedural hemorrhage of a digestive system organ or structure following a digestive system procedure (principal); D62 Acute posthemorrhagic anemia; J44.9 Chronic obstructive pulmonary disease, unspecified; I10 Essential (primary) hypertension; E78.5 Hyperlipidemia, unspecified; F17.210 Nicotine dependence, cigarettes, uncomplicated; Z79.82 Long term (current) use of aspirin; Z79.899 Other long term (current) drug therapy; Z91.030 Bee allergy status; Z80.1 Family history of malignant neoplasm of trachea, bronchus and lung; Z80.0 Family history of malignant neoplasm of digestive organs; Z66 Do not resuscitate; I73.9 Peripheral vascular disease, unspecified; Z91.14 Patient's other noncompliance with medication regimen
CPT/HCPCS: 36415; 80053; 85014; 85018; 85025; 85610; 85730; 86850; 86900; 86901; 86922; 93005; 94640; 94760; A9270-GY; G0378; P9040

== ENCOUNTER 2017-05-25 13:36 | Emergency (ER) | payer MEDICARE, BC ==
[2017-05-25 13:49] VITALS: BP 182/65
[2017-05-25] MEDS ORDERED: methylPREDNISolone 125 MG* 2 ML VIAL IM ONE (14:04)
--- NOTE | 2017-05-25 14:38 | UC ---
Skin Complaint HPI - HPI Summary HPI Summary: YESTERDAY SUNG IN RIGHT HAND BY FLYING INSECT. TOOK EPIPEN AND BENADRYL YESTERDAY. NO SHORTNESS OF BREATH NO THROAT TIGHTNESS. NO CHEST PAIN. REDNESS AND SWELLING TO RIGHT HAND. - History of Current Complaint Chief Complaint: UCSkin Time Seen by Provider: 05/25/17 13:52 Stated Complaint: RED SWOLLEN HAND Hx Obtained From: Patient Onset/Duration: Sudden Onset, Lasting Days, Still Present Skin Exposure Onset/Duration: Days Ago Onset Severity: Mild Current Severity: Mild Location: Discrete - RIGHT HAND Character: Raised Aggravating: Touch Associated Signs & Symptoms: Positive: Rash, Tenderness. Negative: Fever, Chills Related History: Insect Bite/Sting, Possible Reaction to: Insect - Allergy/Home Medications Allergies/Adverse Reactions: Allergies Allergy/AdvReac Type Severity Reaction Status Date / Time Bee Venom Allergy Anaphylatic Verified 03/26/17 11:16 Shock Review of Systems Constitutional: Negative Skin: Rash - RIGHT HAND Eyes: Negative ENT: Negative Respiratory: Negative Gastrointestinal: Negative Genitourinary: Negative Motor: Negative Neurovascular: Negative Musculoskeletal: Negative Neurological: Negative Psychological: Negative All Other Systems Reviewed And Are Negative: Yes PMH/Surg Hx/FS Hx/Imm Hx Previously Healthy: Yes - Surgical History Surgical History: Yes Surgery Procedure, Year, and Place: HYSTERECTOMY; LUMBAR DISCECTOMY >5 YRS AGO; Rt LEG BYPASS W/ STENTS; TONSILECTOMY CSP - DISCECTOMY WITH FUSION AND SCREWS; CAROTID ENDARECTOMY -Rt - Family History Known Family History: Positive: Hypertension - Social History Occupation: Retired Lives: With Family Alcohol Use: Daily Alcohol Amount: 6 BEERS PER DAY Substance Use Type: None Smoking Status (MU): Light Every Day Tobacco Smoker Amount Used/How Often: NON FILTERS 1 PPD X 50 YEARS DOWN TO 3 CIGARETTES PER DAY Have You Smoked in the Last Year: Yes - Immunization History Most Recent Influenza Vaccination: Never Most Recent Pneumonia Vaccination: Within the last 10 years Physical Exam Triage Information Reviewed: Yes Appearance: Well-Appearing, No Pain Distress, Well-Nourished Vital Signs: Initial Vital Signs Temp 99.4 F 05/25/17 13:45 Pulse 72 05/25/17 13:45 Resp 20 05/25/17 13:45 BP 182/65 05/25/17 13:45 Pulse Ox 95 07/31/17 13:45 Vital Signs Reviewed: Yes Eye Exam: Normal ENT Exam: Normal ENT: Positive: Normal ENT inspection, Hearing grossly normal, Pharynx normal, TMs normal Dental Exam: Normal Neck exam: Normal Neck: Positive: Supple, Nontender Respiratory Exam: Normal Respiratory: Positive: Chest non-tender, Lungs clear, Normal breath sounds, No respiratory distress Cardiovascular Exam: Normal Cardiovascular: Positive: RRR, No Murmur, Pulses Normal Abdominal Exam: Normal Musculoskeletal Exam: Normal Neurological Exam: Normal Psychological Exam: Normal Skin Exam: Normal Course/Dx - Differential Diagnoses - Skin Complaint Differential Diagnoses: Allergic Reaction, Anaphylaxis, Angioedema, Cellulitis, Contact Dermatitis, MRSA - Diagnoses Provider Diagnoses: RIGHT HAND INSECT STING, LOCAL ALLERGIC REACTION Discharge - Discharge Plan Condition: Stable Disposition: HOME Patient Education Materials: Insect Bite or Sting (ED) Referrals: Ronak Means MD [Medical Doctor] - Bhupinder Cruz MD [Primary Care Provider] - Additional Instructions: PLEASE TAKE BENADRYL 50mg PO TWO TIMES DAILY FOR THE NEXT FIVE DAYS
== END 2017-05-25 14:43 | disposition home or self-care (01) ==
LOC: UCEAST 13:36
DX: T63.481A Toxic effect of venom of other arthropod, accidental (unintentional), initial encounter (principal); T78.40XA Allergy, unspecified, initial encounter; Y92.9 Unspecified place or not applicable
CPT/HCPCS: 96372; 99212; G0463; J2930

== ENCOUNTER 2017-07-13 16:32 | Emergency (ER) | payer MEDICARE, BC ==
[2017-07-13 17:51] LABS: Hematocrit 38 % (35-47); Hemoglobin 12.5 g/dl (12.0-16.0); Mean Corpuscular HGB Conc 33 g/dl (31-36); Mean Corpuscular Hemoglobin 30 pg (27-31); Mean Corpuscular Volume 91 fL (80-97); Mean Platelet Volume 7 um3 (7.4-10.4); Red Blood Count 4.22 10^6/ul (4.0-5.4); Red Cell Distribution Width 14 % (10.5-15)
[2017-07-13 18:07] LABS: Albumin 3.8 g/dL (3.2-5.2); BUN/Creatinine Ratio 10.9 (8-20); Calcium 9.9 mg/dL (8.6-10.3); EGFR African American 68.5 (>60); EGFR Non-African American 53.3 (>60); Globulin 3.3 g/dL (2-4); Magnesium 1.8 mg/dL (1.9-2.7); Potassium 4.2 mmol/L (3.5-5.0); Total Bilirubin 0.5 mg/dL (0.2-1.0); Total Protein 7.1 g/dL (6.4-8.9)
[2017-07-13] MEDS: NS 0.9% 1000 ML* 2,000 ML IV ONE ×2 (18:26→19:28)
[2017-07-13 18:57] LABS: TSH (Thyroid Stimulating Horm) 2.16 mcIU/mL (0.34-5.60)
[2017-07-13 20:54] LABS: Urine Bilirubin Negative (Negative); Urine Glucose Negative (Negative); Urine Nitrite Negative (Negative)
[2017-07-13 21:46] VITALS: BP 125/65
--- NOTE | 2017-07-13 21:57 | ED ---
Oseas Winn Alfonso, scribed for Abimael Rodriguez MD on 07/13/17 at 1724 . Syncope/Near Syncope - HPI Summary HPI Summary: This patient is a 77 year old F BIBA to [facility] accompanied by family with a chief complaint of syncope since 1600 today. She was having a nebulizer treatment at home when, witnessed by her granddaughter, she had a 60 second episode of blank staring with tremors and unresponsiveness. The patient rates the pain 0/10 in severity. Symptoms aggravated by nothing. Symptoms alleviated by spontaneous resolution. Patient reports nausea, SOB with exertion, tiredness , and dizziness. She is on 4L of [place] O2. She reports medication noncompliance with her HTN prescription. Tobacco abuse disorder. PMHx includes CAD, HTN, and COPD. - History Of Current Complaint Chief Complaint: EDDizziness Time Seen by Provider: 07/13/17 17:08 Hx Obtained From: Patient Onset/Duration: Sudden Onset, Lasting Minutes, Resolved Timing: Constant Context: Witnessed Activity At Onset: Other - nebulizer treatment Aggravating Factor(s): Nothing Alleviating Factor(s): Spontaneous Resolution Associated Signs And Symptoms: Other - nausea, SOB with exertion, tiredness, and dizziness Frequency: Episodes x___ - 1, Episodes Lasting ____ (in Mins/Days/Weeks/Years) - 1 minute - Allergies/Home Medications Allergies/Adverse Reactions: Allergies Allergy/AdvReac Type Severity Reaction Status Date / Time Bee Venom Allergy Anaphylatic Verified 07/13/17 16:52 Shock PMH/Surg Hx/FS Hx/Imm Hx Endocrine/Hematology History: Denies: Hx Diabetes Cardiovascular History: Reports: Hx Coronary Artery Disease - LEFT CAROTID ENDARTERECTOMY-2013- LEFT-JUAN, Hx Hypertension - does not take her pills, Hx Peripheral Vascular Disease - RIGHT LEG SURGERY- VASCULAR- 3 YEARS AGO-JUAN Denies: Hx Pacemaker/ICD Respiratory History: Reports: Hx Chronic Obstructive Pulmonary Disease (COPD) Comment Only: Other Respiratory Problems/Disorders - COPD History: Denies: Hx Renal Disease Sensory History: Reports: Hx Cataracts - BILATERAL, Hx Contacts or Glasses - GLASSES Denies: Hx Hearing Aid Opthamlomology History: Reports: Hx Cataracts - BILATERAL, Hx Contacts or Glasses - GLASSES Psychiatric History: Reports: Hx Anxiety - ON MEDICATION FOR, Hx Depression - ON MEDICATION FOR Denies: Hx Panic Disorder - Cancer History Hx Chemotherapy: No Hx Radiation Therapy: No - Surgical History Surgery Procedure, Year, and Place: HYSTERECTOMY; LUMBAR DISCECTOMY >5 YRS AGO; Rt LEG BYPASS W/ STENTS; TONSILECTOMY CSP - DISCECTOMY WITH FUSION AND SCREWS; CAROTID ENDARECTOMY -Rt Hx Anesthesia Reactions: No Infectious Disease History: No Infectious Disease History: Denies: Traveled Outside the [place] in Last 30 Days - Family History Known Family History: Positive: Hypertension - Social History Alcohol Use: Daily Alcohol Amount: 6 BEERS PER DAY Substance Use Type: Reports: None Smoking Status (MU): Light Every Day Tobacco Smoker Amount Used/How Often: NON FILTERS 1 PPD X 50 YEARS DOWN TO 3 CIGARETTES PER DAY Have You Smoked in the Last Year: Yes Review of Systems Positive: Shortness Of Breath Positive: Nausea Neurological: Other - syncope, tiredness, and dizziness All Other Systems Reviewed And Are Negative: Yes Physical Exam Triage Information Reviewed: Yes Vital Signs On Initial Exam: Initial Vitals BP 89/54 07/13/17 16:38 Vital Signs Reviewed: Yes Appearance: Positive: Well-Appearing, No Pain Distress Skin: Positive: Warm, Dry, Other - Tenting Head/Face: Positive: Normal Head/Face Inspection Eyes: Positive: Normal ENT: Positive: Normal ENT inspection Neck: Positive: Supple, Nontender Respiratory/Lung Sounds: Positive: Clear to Auscultation, Other - Distant breath sounds. Cardiovascular: Positive: RRR Abdomen Description: Positive: Nontender, Soft Bowel Sounds: Positive: Present Musculoskeletal: Positive: Normal Neurological: Positive: Normal, Sensory/Motor Intact, Alert, Oriented to Person Place, Time Psychiatric: Positive: Affect/Mood Appropriate - Gregory Coma Scale Coma Scale Total: 15 Diagnostics - Vital Signs Vital Signs Temp Pulse Resp BP Pulse Ox 07/13/17 16:52 17 07/13/17 16:47 98.5 F 67 17 89/54 96 07/13/17 16:40 74 22 92 07/13/17 16:38 89/54 - Laboratory Lab Results: Lab Results 07/13/17 07/13/17 07/13/17 Range/Units 17:40 17:40 17:40 WBC 6.0 (3.5-10.8) 10^3/ul RBC 4.22 (4.0-5.4) 10^6/ul Hgb 12.5 (12.0-16.0) g/dl Hct 38 (35-47) % MCV 91 (80-97) fL MCH 30 (27-31) pg MCHC 33 (31-36) g/dl RDW 14 (10.5-15) % Plt Count 319 (150-450) 10^3/ul MPV 7 L (7.4-10.4) um3 Neut % (Auto) 71.5 (38-83) % Lymph % (Auto) 15.2 L (25-47) % [place] % (Auto) 10.8 H (1-9) % Eos % (Auto) 1.2 (0-6) % Baso % (Auto) 1.3 (0-2) % Absolute Neuts (auto) 4.3 (1.5-7.7) 10^3/ul Absolute Lymphs (auto) 0.9 L (1.0-4.8) 10^3/ul Absolute Monos (auto) 0.6 (0-0.8) 10^3/ul Absolute Eos (auto) 0.1 (0-0.6) 10^3/ul Absolute Basos (auto) 0.1 (0-0.2) 10^3/ul Absolute Nucleated RBC 0 10^3/ul Nucleated RBC % 0 Sodium 132 L (133-145) mmol/L Potassium 4.2 (3.5-5.0) mmol/L Chloride 95 L (101-111) mmol/L Carbon Dioxide 32 (22-32) mmol/L Anion Gap 5 (2-11) mmol/L BUN 11 (6-24) mg/dL Creatinine 1.01 H (0.51-0.95) mg/dL Est GFR ( Amer) 68.5 (>60) Est GFR (Non-Af Amer) 53.3 (>60) BUN/Creatinine Ratio 10.9 (8-20) Glucose 124 H (70-100) mg/dL Lactic Acid 1.1 (0.5-2.0) mmol/L Calcium 9.9 (8.6-10.3) mg/dL Magnesium 1.8 L (1.9-2.7) mg/dL Total Bilirubin 0.50 (0.2-1.0) mg/dL AST 18 (13-39) U/L ALT 10 (7-52) U/L Alkaline Phosphatase 52 (34-104) U/L Troponin I 0.00 (<0.04) ng/mL Total Protein 7.1 (6.4-8.9) g/dL Albumin 3.8 (3.2-5.2) g/dL Globulin 3.3 (2-4) g/dL Albumin/Globulin Ratio 1.2 (1-3) TSH 2.16 (0.34-5.60) mcIU/mL Urine Color Urine Appearance Urine pH (5-9) Ur Specific [place] (1.010-1.030) Urine Protein (Negative) Urine Ketones (Negative) Urine Blood (Negative) Urine Nitrate (Negative) Urine Bilirubin (Negative) Urine Urobilinogen (Negative) Ur Leukocyte Esterase (Negative) Urine Glucose (Negative) 07/13/17 Range/Units 20:38 WBC (3.5-10.8) 10^3/ul RBC (4.0-5.4) 10^6/ul Hgb (12.0-16.0) g/dl Hct (35-47) % MCV (80-97) fL MCH (27-31) pg MCHC (31-36) g/dl RDW (10.5-15) % Plt Count (150-450) 10^3/ul MPV (7.4-10.4) um3 Neut % (Auto) (38-83) % Lymph % (Auto) (25-47) % [place] % (Auto) (1-9) % Eos % (Auto) (0-6) % Baso % (Auto) (0-2) % Absolute Neuts (auto) (1.5-7.7) 10^3/ul Absolute Lymphs (auto) (1.0-4.8) 10^3/ul Absolute Monos (auto) (0-0.8) 10^3/ul Absolute Eos (auto) (0-0.6) 10^3/ul Absolute Basos (auto) (0-0.2) 10^3/ul Absolute Nucleated RBC 10^3/ul Nucleated RBC % Sodium (133-145) mmol/L Potassium (3.5-5.0) mmol/L Chloride (101-111) mmol/L Carbon Dioxide (22-32) mmol/L Anion Gap (2-11) mmol/L BUN (6-24) mg/dL Creatinine (0.51-0.95) mg/dL Est GFR ( Amer) (>60) Est GFR (Non-Af Amer) (>60) BUN/Creatinine Ratio (8-20) Glucose (70-100) mg/dL Lactic Acid (0.5-2.0) mmol/L Calcium (8.6-10.3) mg/dL Magnesium (1.9-2.7) mg/dL Total Bilirubin (0.2-1.0) mg/dL AST (13-39) U/L ALT (7-52) U/L Alkaline Phosphatase (34-104) U/L Troponin I (<0.04) ng/mL Total Protein (6.4-8.9) g/dL Albumin (3.2-5.2) g/dL Globulin (2-4) g/dL Albumin/Globulin Ratio (1-3) TSH (0.34-5.60) mcIU/mL Urine Color Yellow Urine Appearance Cloudy Urine pH 6.0 (5-9) Ur Specific [place] 1.009 L (1.010-1.030) Urine Protein Negative (Negative) Urine Ketones Trace H (Negative) Urine Blood Negative (Negative) Urine Nitrate Negative (Negative) Urine Bilirubin Negative (Negative) Urine Urobilinogen Negative (Negative) Ur Leukocyte Esterase Negative (Negative) Urine Glucose Negative (Negative) Result Diagrams: 07/13/17 17:40 07/13/17 17:40 Lab Statement: Any lab studies that have been ordered have been reviewed, and results considered in the medical decision making process. - EKG 1740 Cardiac Rate: NL - BPM 80 EKG Rhythm: Sinus Rhythm ST Segment: Non-Specific - diffuse Course/Dx Course Of Treatment: Ms. Jesus Frias has been under a lot of stress and it has been very hot. She had an episode of syncope while sitting up that resolved on its own. It was preceded by nausea and feeling faint for a few minutes. She was mildly hypotensive on arrival and this resolved with fluids and she felt much improved. I think she had a vagal episode exacerbated by dehydration. - Diagnoses Provider Diagnoses: Syncope, vasovagal, Dehydration Discharge - Discharge Plan Condition: Stable Disposition: HOME Patient Education Materials: Syncope (ED), Dehydration (ED) Referrals: Ronak Means MD [Primary Care Provider] - 3 Days The documentation as recorded by the Oseas winkler Alfonso accurately reflects the service I personally performed and the decisions made by me, Abimael Rodriguez MD.
== END 2017-07-13 21:45 | disposition home or self-care (01) ==
LOC: ED 16:32
DX: R55 Syncope and collapse (principal); R11.0 Nausea; E86.0 Dehydration
CPT/HCPCS: 36415; 80053; 81003; 83605; 83735; 84443; 84484; 85025; 93005; 96360; 99283

== ENCOUNTER 2018-01-20 10:46 | Emergency (ER) | payer MEDICARE, BC ==
[2018-01-20] MEDS ORDERED: Cephalexin CAP* 500 MG PO ONE (13:20)
--- NOTE | 2018-01-20 13:24 | UC ---
Skin Complaint HPI - HPI Summary HPI Summary: 3-4 days ago during the night her right foot was itchy she scratched it now red and swollen no fever no hx DM - History of Current Complaint Chief Complaint: UCSkin Time Seen by Provider: 01/20/18 13:17 Stated Complaint: FOOT PAIN Hx Obtained From: Patient Hx Last Menstrual Period: age 30 Onset/Duration: Gradual Onset, Lasting Days Timing: Constant Onset Severity: Mild Current Severity: Moderate Pain Intensity: 5 Pain Scale Used: 0-10 Numeric Character: Swelling, Pruritus, Pain, Redness Aggravating Factor(s): Touch - Allergy/Home Medications Allergies/Adverse Reactions: Allergies Allergy/AdvReac Type Severity Reaction Status Date / Time bee venom protein (honey bee) Allergy Severe anaphylaxis Verified 01/20/18 11:31 Review of Systems Constitutional: Negative Skin: Negative Eyes: Negative ENT: Negative Respiratory: Negative Cardiovascular: Negative Gastrointestinal: Negative Genitourinary: Negative Motor: Negative Neurovascular: Negative Musculoskeletal: Negative Neurological: Negative Psychological: Negative Is Patient Immunocompromised?: No All Other Systems Reviewed And Are Negative: Yes PMH/Surg Hx/FS Hx/Imm Hx Previously Healthy: Yes Endocrine History: Dyslipidemia Cardiovascular History: Hypertension Respiratory History: COPD GI/ History: Gastroesophageal Reflux - Surgical History Surgical History: Yes Surgery Procedure, Year, and Place: HYSTERECTOMY; LUMBAR DISCECTOMY >5 YRS AGO; Rt LEG BYPASS W/ STENTS; TONSILECTOMY CSP - DISCECTOMY WITH FUSION AND SCREWS; CAROTID ENDARECTOMY -left - Family History Known Family History: Positive: Hypertension - Social History Alcohol Use: Daily Alcohol Amount: 6 BEERS PER DAY Substance Use Type: None Smoking Status (MU): Light Every Day Tobacco Smoker Amount Used/How Often: NON FILTERS 1 PPD X 50 YEARS DOWN TO 3 CIGARETTES PER DAY Have You Smoked in the Last Year: Yes - Immunization History Most Recent Influenza Vaccination: Never Most Recent Pneumonia Vaccination: Within the last 10 years Physical Exam Triage Information Reviewed: Yes Appearance: Well-Appearing, No Pain Distress, Well-Nourished Vital Signs: Initial Vital Signs Temp 98.1 F 01/20/18 11:22 Pulse 183 01/20/18 11:22 Resp 17 01/20/18 11:22 BP 182/93 01/20/18 11:22 Pulse Ox 93 01/20/18 11:22 Vital Signs Reviewed: Yes Eyes: Positive: Conjunctiva Clear ENT: Positive: Hearing grossly normal. Negative: Nasal congestion, Nasal drainage Respiratory: Positive: Lungs clear, Normal breath sounds, No respiratory distress, No accessory muscle use Cardiovascular: Positive: RRR, No Murmur Musculoskeletal: Positive: Edema @ - dorum of right foot Neurological: Positive: Alert Psychological Exam: Normal Skin Exam: Normal Course/Dx - Diagnoses Provider Diagnoses: cellulitis right foot Discharge - Sign-Out/Discharge Documenting (check all that apply): Discharge - Discharge Plan Condition: Stable Disposition: HOME Prescriptions: Cephalexin CAP* [Keflex CAP*] 500 mg PO QID #28 cap Patient Education Materials: Cellulitis (ED) Referrals: Ronak Means MD [Primary Care Provider] - 5 Days (if not bettter) Additional Instructions: epsom salt soaks - Billing Disposition and Condition Condition: STABLE Disposition: HOME Images Feet (Multiple View): 1 - excoriated 2 - red/swollen
[2018-01-20 13:30] VITALS: BP 174/71
== END 2018-01-20 13:41 | disposition home or self-care (01) ==
LOC: UCEAST 10:46
DX: L03.115 Cellulitis of right lower limb (principal); E78.5 Hyperlipidemia, unspecified; I10 Essential (primary) hypertension; J44.9 Chronic obstructive pulmonary disease, unspecified; K21.9 Gastro-esophageal reflux disease without esophagitis; F17.210 Nicotine dependence, cigarettes, uncomplicated
CPT/HCPCS: 99212; A9270-GY; G0463

== ENCOUNTER 2018-03-20 14:54 | Inpatient (IN) | payer BC, MEDICARE ==
[2018-03-20] MEDS ORDERED: methylPREDNISolone 125 MG* 2 ML VIAL IV ONE (15:10)
[2018-03-20] MEDS ORDERED: Albuterol/Ipratropium NEB.SOL* Albuterol 2.5 MG/Ipratropium 0.5 MG 3 ML INH ONE (15:10)
--- NOTE | 2018-03-20 15:50 | RAD ---
HISTORY: Shortness of breath COMPARISONS: None VIEWS: 1: frontal portable view of the chest at 3:19 PM FINDINGS: LINES AND TUBES: None. CARDIOMEDIASTINAL SILHOUETTE: The cardiomediastinal silhouette is normal for portable technique. PLEURA: The costophrenic angles are sharp. No pleural abnormalities are noted. LUNG PARENCHYMA: There is hyperinflation. ABDOMEN: The upper abdomen is clear. There is no subphrenic gas. BONES AND SOFT TISSUES: The patient is status post anterior cervical fusion. There is evidence of remote clavicle fractures. IMPRESSION: HYPERINFLATION. NO ACTIVE CARDIOPULMONARY DISEASE.
[2018-03-20 15:56] LABS: INR 0.94 (0.77-1.02)
[2018-03-20 16:05] LABS: EGFR Non-African American 71.6 (>60)
[2018-03-20 16:06] LABS: ABS Basophils 0.1 10^3/ul (0-0.2); ABS Eosinophils 0 10^3/ul (0-0.6); ABS Lymphocytes 0.9 10^3/ul (1.0-4.8); ABS Monocytes 0.6 10^3/ul (0-0.8); ABS Neutrophils 6.5 10^3/ul (1.5-7.7); ABS Nucleated RBC 0 10^3/ul; Eosinophil % 0.6 % (0-6); Hematocrit 30 % (35-47); Mean Corpuscular HGB Conc 33 g/dl (31-36); Mean Corpuscular Hemoglobin 29 pg (27-31); Mean Corpuscular Volume 88 fL (80-97); Mean Platelet Volume 6.4 um3 (7.4-10.4); Nucleated Red Blood Cells % 0; Platelet Count 407 10^3/ul (150-450); Red Blood Count 3.45 10^6/ul (4.0-5.4); Red Cell Distribution Width 15 % (10.5-15); White Blood Count 8.1 10^3/ul (3.5-10.8)
[2018-03-20 17:20] LABS: Urine Appearance Clear; Urine Blood 1+ (Negative); Urine Color Straw; Urine Ketones Negative (Negative); Urine Protein Negative (Negative); Urine Specific Gravity 1.008 (1.010-1.030); Urine Urobilinogen Negative (Negative)
--- NOTE | 2018-03-20 17:36 | ED ---
Dandre Winn Stephanie, scribed for Charli Harris on 03/20/18 at 1514 . Shortness of Breath - HPI Summary HPI Summary: The pt is a 78 y/o F BIBA to the ED with c/o SOB that began 03/19/18. Symptoms include shaking. The pt denies CP and fever. - History of Current Complaint Chief Complaint: EDShortnessOfBreath Time Seen by Provider: 03/20/18 15:03 Hx Obtained From: Patient Onset/Duration: Sudden Onset, Lasting Days - 1, Resolved Current Severity: Mild Aggrevating Factors: Nothing Alleviating Factors: Spontaneous Resolution - Allergy/Home Medications Allergies/Adverse Reactions: Allergies Allergy/AdvReac Type Severity Reaction Status Date / Time venom-honey bee Allergy Unknown Verified 03/20/18 15:12 Reaction Details Home Medications: Home Medications Albuterol HFA INHALER* [Ventolin HFA Inhaler*] 2 puff INH Q6H PRN 03/20/18 [ History Confirmed 03/20/18] Atorvastatin* [Lipitor*] 80 mg PO DAILY 03/20/18 [History Confirmed 03/20/18] Budesonide/Formote 160/4.5(NF) [Symbicort 160/4.5 (NF)] 2 puff INH BID 03/20/18 [History Confirmed 03/20/18] Clopidogrel TAB* [Plavix TAB*] 75 mg PO DAILY 03/20/18 [History Confirmed ] Hydrochlorothiazide TAB* [Hydrodiuril TAB*] 25 mg PO DAILY 03/20/18 [History Confirmed 03/20/18] Ipratropium 0.5MG/2.5ML NEB* [Atrovent 0.5 MG NEB.BEBETO*] 0.5 mg INH Q6H PRN 03/20 [History Confirmed 03/20/18] Tiotropium CAP.INH* [Spiriva CAP.INH*] 1 cap.inh INH DAILY 03/20/18 [History Confirmed 03/20/18] traZODone TAB* [Desyrel TAB*] 50 - 100 mg PO BEDTIME 03/20/18 [History Confirmed 03/20/18] PMH/Surg Hx/FS Hx/Imm Hx Sensory History: Denies: Hx Legally Blind EENT History: Denies: Hx Deafness - Surgical History Surgery Procedure, Year, and Place: NONE Infectious Disease History: No Infectious Disease History: Denies: Traveled Outside the [place] in Last 30 Days - Family History Known Family History: Negative: Renal Disease - Social History Alcohol Use: Daily Substance Use Type: Reports: None Smoking Status (MU): Light Every Day Tobacco Smoker Review of Systems Negative: Fever Negative: Chest Pain Positive: Shortness Of Breath Positive: Other - shaking All Other Systems Reviewed And Are Negative: Yes Physical Exam - Summary Physical Exam Summary: Appearance: Well appearing, no pain distress Skin: warm, dry, reflects adequate perfusion Head/face: normal Eyes: EOMI, LA NENA ENT: normal Neck: supple, non-tender Respiratory: CTA, breath sounds present, poor air entry into lungs Cardiovascular: Tachycardic, regular rhythm, pulses symmetrical Abdomen: non-tender, soft Bowel: present Musculoskeletal: normal, strength/ROM intact Neuro: normal, sensory motor intact, A&Ox3 Triage Information Reviewed: Yes Vital Signs On Initial Exam: Initial Vitals Pulse Resp BP Pulse Ox 117 18 160/77 95 03/20/18 14:50 03/20/18 14:50 03/20/18 14:50 03/20/18 14:50 Vital Signs Reviewed: Yes Diagnostics - Vital Signs Vital Signs Temp Pulse Resp BP Pulse Ox 03/20/18 15:00 121 26 95 03/20/18 14:59 118 23 96 03/20/18 14:58 98.7 F 120 28 160/77 96 03/20/18 14:50 117 18 160/77 95 - Laboratory Lab Results: Lab Results 03/20/18 03/20/18 03/20/18 Range/Units 15:35 15:40 15:40 WBC 8.1 (3.5-10.8) 10^3/ul RBC 3.45 L (4.0-5.4) 10^6/ul Hgb 10.0 L (12.0-16.0) g/dl Hct 30 L (35-47) % MCV 88 (80-97) fL MCH 29 (27-31) pg MCHC 33 (31-36) g/dl RDW 15 (10.5-15) % Plt Count 407 (150-450) 10^3/ul MPV 6.4 L (7.4-10.4) um3 Neut % (Auto) 79.1 (38-83) % Lymph % (Auto) 11.0 L (25-47) % [place] % (Auto) 7.9 H (0-7) % Eos % (Auto) 0.6 (0-6) % Baso % (Auto) 1.4 (0-2) % Absolute Neuts (auto) 6.5 (1.5-7.7) 10^3/ul Absolute Lymphs (auto) 0.9 L (1.0-4.8) 10^3/ul Absolute Monos (auto) 0.6 (0-0.8) 10^3/ul Absolute Eos (auto) 0 (0-0.6) 10^3/ul Absolute Basos (auto) 0.1 (0-0.2) 10^3/ul Absolute Nucleated RBC 0 10^3/ul Nucleated RBC % 0 INR (Anticoag Therapy) 0.94 (0.77-1.02) APTT 33.3 (26.0-36.3) seconds Patient Temperature Not Reportable ABG pH 7.51 H (7.35-7.45) ABG pH (Temp Correct) Not Reportable ABG pCO2 34 L (35-45) mmHg ABG pCO2 (Temp Corrct Not Reportable ABG pO2 69 L (80-100) mmHg ABG pO2 (Temp Correct Not Reportable ABG HCO3 27.5 (19-31) mmol/L ABG O2 Saturation 97.5 (95-98) % ABG Base Excess 4.0 H (-2.0-2.0) Respiration Rate Not Reportable O2 Delivery Device nasal cannula 4 lpm Ventilator Type Not Reportable Vent Mode Not Reportable FiO2 Not Reportable Inspiratory Time Not Reportable PEEP Not Reportable Pressure Support Not Reportable Pressure Control Not Reportable EPAP Not Reportable IPAP Not Reportable BiPAP Not Reportable Sodium (139-145) mmol/L Potassium (3.5-5.0) mmol/L Chloride (101-111) mmol/L Carbon Dioxide (22-32) mmol/L Anion Gap (2-11) mmol/L BUN (6-24) mg/dL Creatinine (0.51-0.95) mg/dL Est GFR ( Amer) (>60) Est GFR (Non-Af Amer) (>60) BUN/Creatinine Ratio (8-20) Glucose (70-100) mg/dL Lactic Acid (0.5-2.0) mmol/L Calcium (8.6-10.3) mg/dL Magnesium (1.9-2.7) mg/dL Total Bilirubin (0.2-1.0) mg/dL AST (13-39) U/L ALT (7-52) U/L Alkaline Phosphatase (34-104) U/L Troponin I (<0.04) ng/mL B-Natriuretic Peptide ( - 100) pg/mL Total Protein (6.4-8.9) g/dL Albumin (3.2-5.2) g/dL Globulin (2-4) g/dL Albumin/Globulin Ratio (1-3) Urine Color Urine Appearance Urine pH (5-9) Ur Specific Herman (1.010-1.030) Urine Protein (Negative) Urine Ketones (Negative) Urine Blood (Negative) Urine Nitrate (Negative) Urine Bilirubin (Negative) Urine Urobilinogen (Negative) Ur Leukocyte Esterase (Negative) Urine WBC (Auto) (Absent) Urine RBC (Auto) (Absent) Ur Squamous Epith Cells (Absent) Urine Bacteria (Absent) Urine Glucose (Negative) 03/20/18 03/20/18 03/20/18 Range/Units 15:40 15:40 15:40 WBC (3.5-10.8) 10^3/ul RBC (4.0-5.4) 10^6/ul Hgb (12.0-16.0) g/dl Hct (35-47) % MCV (80-97) fL MCH (27-31) pg MCHC (31-36) g/dl RDW (10.5-15) % Plt Count (150-450) 10^3/ul MPV (7.4-10.4) um3 Neut % (Auto) (38-83) % Lymph % (Auto) (25-47) % [place] % (Auto) (0-7) % Eos % (Auto) (0-6) % Baso % (Auto) (0-2) % Absolute Neuts (auto) (1.5-7.7) 10^3/ul Absolute Lymphs (auto) (1.0-4.8) 10^3/ul Absolute Monos (auto) (0-0.8) 10^3/ul Absolute Eos (auto) (0-0.6) 10^3/ul Absolute Basos (auto) (0-0.2) 10^3/ul Absolute Nucleated RBC 10^3/ul Nucleated RBC % INR (Anticoag Therapy) (0.77-1.02) APTT (26.0-36.3) seconds Patient Temperature ABG pH (7.35-7.45) ABG pH (Temp Correct) ABG pCO2 (35-45) mmHg ABG pCO2 (Temp Corrct ABG pO2 (80-100) mmHg ABG pO2 (Temp Correct ABG HCO3 (19-31) mmol/L ABG O2 Saturation (95-98) % ABG Base Excess (-2.0-2.0) Respiration Rate O2 Delivery Device Ventilator Type Vent Mode FiO2 Inspiratory Time PEEP Pressure Support Pressure Control EPAP IPAP BiPAP Sodium 131 L (139-145) mmol/L Potassium 3.5 (3.5-5.0) mmol/L Chloride 94 L (101-111) mmol/L Carbon Dioxide 28 (22-32) mmol/L Anion Gap 9 (2-11) mmol/L BUN 8 (6-24) mg/dL Creatinine 0.78 (0.51-0.95) mg/dL Est GFR ( Amer) 92.1 (>60) Est GFR (Non-Af Amer) 71.6 (>60) BUN/Creatinine Ratio 10.3 (8-20) Glucose 153 H (70-100) mg/dL Lactic Acid 2.2 H* (0.5-2.0) mmol/L Calcium 9.0 (8.6-10.3) mg/dL Magnesium 1.6 L (1.9-2.7) mg/dL Total Bilirubin 0.70 (0.2-1.0) mg/dL AST 17 (13-39) U/L ALT 9 (7-52) U/L Alkaline Phosphatase 61 (34-104) U/L Troponin I 0.01 (<0.04) ng/mL B-Natriuretic Peptide 161 H ( - 100) pg/mL Total Protein 6.8 (6.4-8.9) g/dL Albumin 3.6 (3.2-5.2) g/dL Globulin 3.2 (2-4) g/dL Albumin/Globulin Ratio 1.1 (1-3) Urine Color Urine Appearance Urine pH (5-9) Ur Specific Herman (1.010-1.030) Urine Protein (Negative) Urine Ketones (Negative) Urine Blood (Negative) Urine Nitrate (Negative) Urine Bilirubin (Negative) Urine Urobilinogen (Negative) Ur Leukocyte Esterase (Negative) Urine WBC (Auto) (Absent) Urine RBC (Auto) (Absent) Ur Squamous Epith Cells (Absent) Urine Bacteria (Absent) Urine Glucose (Negative) 03/20/18 Range/Units 16:56 WBC (3.5-10.8) 10^3/ul RBC (4.0-5.4) 10^6/ul Hgb (12.0-16.0) g/dl Hct (35-47) % MCV (80-97) fL MCH (27-31) pg MCHC (31-36) g/dl RDW (10.5-15) % Plt Count (150-450) 10^3/ul MPV (7.4-10.4) um3 Neut % (Auto) (38-83) % Lymph % (Auto) (25-47) % [place] % (Auto) (0-7) % Eos % (Auto) (0-6) % Baso % (Auto) (0-2) % Absolute Neuts (auto) (1.5-7.7) 10^3/ul Absolute Lymphs (auto) (1.0-4.8) 10^3/ul Absolute Monos (auto) (0-0.8) 10^3/ul Absolute Eos (auto) (0-0.6) 10^3/ul Absolute Basos (auto) (0-0.2) 10^3/ul Absolute Nucleated RBC 10^3/ul Nucleated RBC % INR (Anticoag Therapy) (0.77-1.02) APTT (26.0-36.3) seconds Patient Temperature ABG pH (7.35-7.45) ABG pH (Temp Correct) ABG pCO2 (35-45) mmHg ABG pCO2 (Temp Corrct ABG pO2 (80-100) mmHg ABG pO2 (Temp Correct ABG HCO3 (19-31) mmol/L ABG O2 Saturation (95-98) % ABG Base Excess (-2.0-2.0) Respiration Rate O2 Delivery Device Ventilator Type Vent Mode FiO2 Inspiratory Time PEEP Pressure Support Pressure Control EPAP IPAP BiPAP Sodium (139-145) mmol/L Potassium (3.5-5.0) mmol/L Chloride (101-111) mmol/L Carbon Dioxide (22-32) mmol/L Anion Gap (2-11) mmol/L BUN (6-24) mg/dL Creatinine (0.51-0.95) mg/dL Est GFR ( Amer) (>60) Est GFR (Non-Af Amer) (>60) BUN/Creatinine Ratio (8-20) Glucose (70-100) mg/dL Lactic Acid (0.5-2.0) mmol/L Calcium (8.6-10.3) mg/dL Magnesium (1.9-2.7) mg/dL Total Bilirubin (0.2-1.0) mg/dL AST (13-39) U/L ALT (7-52) U/L Alkaline Phosphatase (34-104) U/L Troponin I (<0.04) ng/mL B-Natriuretic Peptide ( - 100) pg/mL Total Protein (6.4-8.9) g/dL Albumin (3.2-5.2) g/dL Globulin (2-4) g/dL Albumin/Globulin Ratio (1-3) Urine Color Straw Urine Appearance Clear Urine pH 7.0 (5-9) Ur Specific Herman 1.008 L (1.010-1.030) Urine Protein Negative (Negative) Urine Ketones Negative (Negative) Urine Blood 1+ A (Negative) Urine Nitrate Negative (Negative) Urine Bilirubin Negative (Negative) Urine Urobilinogen Negative (Negative) Ur Leukocyte Esterase Trace A (Negative) Urine WBC (Auto) Trace(0-5/hpf) (Absent) Urine RBC (Auto) Absent (Absent) Ur Squamous Epith Cells Present A (Absent) Urine Bacteria 1+ A (Absent) Urine Glucose Negative (Negative) Result Diagrams: 03/20/18 15:40 03/20/18 15:40 Lab Statement: Any lab studies that have been ordered have been reviewed, and results considered in the medical decision making process. - Radiology CXR Xray Interpretation: No Acute Changes Radiology Interpretation Completed By: Radiologist - HYPERINFLATION. NO ACTIVE CARDIOPULMONARY DISEASE. ED physician has reviewed this report. - EKG 15:04 Cardiac Rate: Tachycardia EKG Rhythm: Sinus Tachycardia - 116 BPM EKG Interpretation: No acute changes Course/Dx - Course Course Of Treatment: The pt is a 78 y/o F BIBA to the ED with c/o SOB that began 03/19/18. Symptoms include shaking. The pt denies CP and fever. LAbs and urines obtained. Imaging revealed no acute findings. - Diagnoses Differential Diagnosis/HQI/PQRI: Positive: Asthma, Bronchitis, CHF, COPD Exacerbation, Pneumonia, Pulmonary Edema Provider Diagnoses: COPD exacerbation - Physician Notifications Discussed Care of Patient With: Jake Jordan Time Discussed With Above Provider: 17:20 Instructed by Provider To: Admit As Inpatient Discharge - Sign-Out/Discharge Documenting (check all that apply): Discharge/Admit/Transfer - Admit - Discharge Plan Condition: Stable Disposition: ADMITTED TO [facility] Referrals: Ronak Means MD [Primary Care Provider] - - Billing Disposition and Condition Condition: STABLE Disposition: [facility] [place] The documentation as recorded by the Dandre winkler Stephanie accurately reflects the service I personally performed and the decisions made by Steven ba Emmanuel.
[2018-03-20] MEDS ORDERED: Azithromycin TAB* 250 MG PO ONE (17:48)
--- NOTE | 2018-03-20 18:02 | ADMNOTE ---
Subjective Date of Service: 03/20/18 Interval History: ADMISSION HISTORY AND PHYSICAL EXAM: NOTE: MOST OF EMR IS UNDER NAME LIN LEIVA Allergies Allergy/AdvReac Type Severity Reaction Status Date / Time venom-honey bee Allergy Unknown Verified 03/20/18 15:12 Reaction Details Home Medications Medication Instructions Recorded Confirmed Type Albuterol HFA INHALER* [Ventolin 2 puff INH Q6H PRN 03/20/18 03/20/18 History HFA Inhaler*] Atorvastatin* [Lipitor*] 80 mg PO DAILY 03/20/18 03/20/18 History Budesonide/Formote 160/4.5(NF) 2 puff INH BID 03/20/18 03/20/18 History [Symbicort 160/4.5 (NF)] Clopidogrel TAB* [Plavix TAB*] 75 mg PO DAILY 03/20/18 03/20/18 History Hydrochlorothiazide TAB* 25 mg PO DAILY 03/20/18 03/20/18 History [Hydrodiuril TAB*] Ipratropium 0.5MG/2.5ML NEB* 0.5 mg INH Q6H PRN 03/20/18 03/20/18 History [Atrovent 0.5 MG NEB.BEBETO*] Tiotropium CAP.INH* [Spiriva 1 cap.inh INH DAILY 03/20/18 03/20/18 History CAP.INH*] traZODone TAB* [Desyrel TAB*] 50 - 100 mg PO BEDTIME 03/20/18 03/20/18 History HPI: The patient was in her usual state of health until yesterday AM. She became more SOB. She took guaifenesin LA and many doses of nebulized albuterol. She had very little sputum. She had some chills. Family History: Findings - Father of lung cancer age 48, brother had [place] age 47. Paternal GF of rectal ca. Social History: Findings - Still smokes 2 cigarettes per day. Drinks 4 beers per day. , lives alone. SDM is Eduardo Carvajal, her 's son in law. Past Medical History: Findings - Stents in both legs. L CEA. [facility]/ hysterectomy. 4 children. Review of Systems - Measurements Intake and Output: Intake and Output Last 24 Hours 03/18/18 03/19/18 03/20/18 05/27/18 06:59 06:59 06:59 06:59 Weight 125 lb - Review of Systems Constitutional Symptoms: Positive: Weight Loss - unknown amount. some anorexia Eyes: Positive: Other - scarring after cataract surgery may require further surgery Thyroid: Positive: Normal Pulmonary: Positive: Cough, Shortness of Breath, COPD, Exercise Intolerance, Home Oxygen Cardiology: Positive: Normal Gastroenterology: Positive: Anorexia Genital - Urinary: Positive: Normal Musculoskeletal: Positive: Low Back Pain Endocrinology: Positive: Normal Hematologic/Lymphatic: Positive: Anemia Neurology: Positive: Normal Psychiatry: Positive: Normal Allergic/Immunologic: Negative: Hx Anaphylaxis, Hx Angioedema, Hx Environmental, Hx Seasonal, Athsma, Hx HIV, Immunocompromise, Swollen Glands LymphNodes, Other Objective Active Medications: Albuterol/Ipratropium (Duoneb (Albuterol 2.5 Mg/Ipratropium 0.5 Mg)) 1 neb INH [id number] AWAKE [facility] Atorvastatin Calcium (Lipitor*) 80 mg PO DAILY [facility] Azithromycin (Zithromax Tab*) 250 mg PO DAILY [facility] Clopidogrel Bisulfate (Plavix Tab*) 75 mg PO DAILY [facility] Enoxaparin Sodium (Lovenox(*)) 40 mg SUBCUT Q24H [facility] Guaifenesin (Mucinex*) 600 mg PO BID [facility] Nicotine Polacrilex (Nicotine Lozenge*) 4 mg MT Q2H PRN PRN Reason: CRAVINGS Prednisone (Deltasone Tab*) 60 mg PO DAILY [facility] Trazodone HCl (Desyrel Tab*) 50 mg PO BEDTIME [facility] Vital Signs - 8 hr 03/20/18 03/20/18 03/20/18 14:50 14:58 14:59 Temperature 98.7 F Pulse Rate 117 120 118 Respiratory 18 28 23 Rate Blood Pressure 160/77 160/77 (mmHg) O2 Sat by Pulse 95 96 96 Oximetry 03/20/18 03/20/18 03/20/18 15:00 15:20 15:41 Temperature Pulse Rate 121 119 110 Respiratory 26 25 25 Rate Blood Pressure 110/84 (mmHg) O2 Sat by Pulse 95 96 Oximetry 03/20/18 03/20/18 03/20/18 15:50 16:00 16:20 Temperature Pulse Rate 112 119 112 Respiratory 34 23 16 Rate Blood Pressure 132/71 127/79 (mmHg) O2 Sat by Pulse 94 91 96 Oximetry 03/20/18 03/20/18 17:02 17:20 Temperature Pulse Rate 109 108 Respiratory 30 23 Rate Blood Pressure 144/72 (mmHg) O2 Sat by Pulse 90 96 Oximetry Oxygen Devices in Use Now: Nasal Cannula Appearance: Alert, sitting up on ED stretcher. In good spirits. Tachypneic but otherwise looks comfortable. Eyes: No Scleral Icterus Ears/Nose/Mouth/Throat: Clear Oropharnyx, Mucous Membranes Moist, - - Very hoarse, only for past 2 days. Neck: NL Appearance and Movements; NL JVP, No Thyroid Enlargement, Masses Respiratory: Symmetrical Chest Expansion and Respiratory Effort, Clear to Percussion, - - very prolonged expiratory phase. Faint inspiratory crackles Cardiovascular: NL Sounds; No Murmurs; No JVD, RRR, No Edema, - - rate about 110 Extremities: No Edema, No Clubbing, Cyanosis, - Skin: No Rash or Ulcers, No Nodules or Sclerosis, - Neurological: Alert and Oriented x 3, NL Sensation Result Diagrams: 03/20/18 15:40 03/20/18 15:40 Additional Lab and Data: Lab Results 03/20/18 03/20/18 03/20/18 Range/Units 15:35 15:40 15:40 WBC 8.1 (3.5-10.8) 10^3/ul RBC 3.45 L (4.0-5.4) 10^6/ul Hgb 10.0 L (12.0-16.0) g/dl Hct 30 L (35-47) % MCV 88 (80-97) fL MCH 29 (27-31) pg MCHC 33 (31-36) g/dl RDW 15 (10.5-15) % Plt Count 407 (150-450) 10^3/ul MPV 6.4 L (7.4-10.4) um3 Neut % (Auto) 79.1 (38-83) % Lymph % (Auto) 11.0 L (25-47) % [place] % (Auto) 7.9 H (0-7) % Eos % (Auto) 0.6 (0-6) % Baso % (Auto) 1.4 (0-2) % Absolute Neuts (auto) 6.5 (1.5-7.7) 10^3/ul Absolute Lymphs (auto) 0.9 L (1.0-4.8) 10^3/ul Absolute Monos (auto) 0.6 (0-0.8) 10^3/ul Absolute Eos (auto) 0 (0-0.6) 10^3/ul Absolute Basos (auto) 0.1 (0-0.2) 10^3/ul Absolute Nucleated RBC 0 10^3/ul Nucleated RBC % 0 INR (Anticoag Therapy) 0.94 (0.77-1.02) APTT 33.3 (26.0-36.3) seconds Patient Temperature Not Reportable ABG pH 7.51 H (7.35-7.45) ABG pH (Temp Correct) Not Reportable ABG pCO2 34 L (35-45) mmHg ABG pCO2 (Temp Corrct Not Reportable ABG pO2 69 L (80-100) mmHg ABG pO2 (Temp Correct Not Reportable ABG HCO3 27.5 (19-31) mmol/L ABG O2 Saturation 97.5 (95-98) % ABG Base Excess 4.0 H (-2.0-2.0) Respiration Rate Not Reportable O2 Delivery Device nasal cannula 4 lpm Ventilator Type Not Reportable Vent Mode Not Reportable FiO2 Not Reportable Inspiratory Time Not Reportable PEEP Not Reportable Pressure Support Not Reportable Pressure Control Not Reportable EPAP Not Reportable IPAP Not Reportable BiPAP Not Reportable Sodium (139-145) mmol/L Potassium (3.5-5.0) mmol/L Chloride (101-111) mmol/L Carbon Dioxide (22-32) mmol/L Anion Gap (2-11) mmol/L BUN (6-24) mg/dL Creatinine (0.51-0.95) mg/dL Est GFR ( Amer) (>60) Est GFR (Non-Af Amer) (>60) BUN/Creatinine Ratio (8-20) Glucose (70-100) mg/dL Lactic Acid (0.5-2.0) mmol/L Calcium (8.6-10.3) mg/dL Magnesium (1.9-2.7) mg/dL Total Bilirubin (0.2-1.0) mg/dL AST (13-39) U/L ALT (7-52) U/L Alkaline Phosphatase (34-104) U/L Troponin I (<0.04) ng/mL B-Natriuretic Peptide ( - 100) pg/mL Total Protein (6.4-8.9) g/dL Albumin (3.2-5.2) g/dL Globulin (2-4) g/dL Albumin/Globulin Ratio (1-3) Urine Color Urine Appearance Urine pH (5-9) Ur Specific [place] (1.010-1.030) Urine Protein (Negative) Urine Ketones (Negative) Urine Blood (Negative) Urine Nitrate (Negative) Urine Bilirubin (Negative) Urine Urobilinogen (Negative) Ur Leukocyte Esterase (Negative) Urine WBC (Auto) (Absent) Urine RBC (Auto) (Absent) Ur Squamous Epith Cells (Absent) Urine Bacteria (Absent) Urine Glucose (Negative) 03/20/18 03/20/18 03/20/18 Range/Units 15:40 15:40 15:40 WBC (3.5-10.8) 10^3/ul RBC (4.0-5.4) 10^6/ul Hgb (12.0-16.0) g/dl Hct (35-47) % MCV (80-97) fL MCH (27-31) pg MCHC (31-36) g/dl RDW (10.5-15) % Plt Count (150-450) 10^3/ul MPV (7.4-10.4) um3 Neut % (Auto) (38-83) % Lymph % (Auto) (25-47) % [place] % (Auto) (0-7) % Eos % (Auto) (0-6) % Baso % (Auto) (0-2) % Absolute Neuts (auto) (1.5-7.7) 10^3/ul Absolute Lymphs (auto) (1.0-4.8) 10^3/ul Absolute Monos (auto) (0-0.8) 10^3/ul Absolute Eos (auto) (0-0.6) 10^3/ul Absolute Basos (auto) (0-0.2) 10^3/ul Absolute Nucleated RBC 10^3/ul Nucleated RBC % INR (Anticoag Therapy) (0.77-1.02) APTT (26.0-36.3) seconds Patient Temperature ABG pH (7.35-7.45) ABG pH (Temp Correct) ABG pCO2 (35-45) mmHg ABG pCO2 (Temp Corrct ABG pO2 (80-100) mmHg ABG pO2 (Temp Correct ABG HCO3 (19-31) mmol/L ABG O2 Saturation (95-98) % ABG Base Excess (-2.0-2.0) Respiration Rate O2 Delivery Device Ventilator Type Vent Mode FiO2 Inspiratory Time PEEP Pressure Support Pressure Control EPAP IPAP BiPAP Sodium 131 L (139-145) mmol/L Potassium 3.5 (3.5-5.0) mmol/L Chloride 94 L (101-111) mmol/L Carbon Dioxide 28 (22-32) mmol/L Anion Gap 9 (2-11) mmol/L BUN 8 (6-24) mg/dL Creatinine 0.78 (0.51-0.95) mg/dL Est GFR ( Amer) 92.1 (>60) Est GFR (Non-Af Amer) 71.6 (>60) BUN/Creatinine Ratio 10.3 (8-20) Glucose 153 H (70-100) mg/dL Lactic Acid 2.2 H* (0.5-2.0) mmol/L Calcium 9.0 (8.6-10.3) mg/dL Magnesium 1.6 L (1.9-2.7) mg/dL Total Bilirubin 0.70 (0.2-1.0) mg/dL AST 17 (13-39) U/L ALT 9 (7-52) U/L Alkaline Phosphatase 61 (34-104) U/L Troponin I 0.01 (<0.04) ng/mL B-Natriuretic Peptide 161 H ( - 100) pg/mL Total Protein 6.8 (6.4-8.9) g/dL Albumin 3.6 (3.2-5.2) g/dL Globulin 3.2 (2-4) g/dL Albumin/Globulin Ratio 1.1 (1-3) Urine Color Urine Appearance Urine pH (5-9) Ur Specific [place] (1.010-1.030) Urine Protein (Negative) Urine Ketones (Negative) Urine Blood (Negative) Urine Nitrate (Negative) Urine Bilirubin (Negative) Urine Urobilinogen (Negative) Ur Leukocyte Esterase (Negative) Urine WBC (Auto) (Absent) Urine RBC (Auto) (Absent) Ur Squamous Epith Cells (Absent) Urine Bacteria (Absent) Urine Glucose (Negative) 03/20/18 Range/Units 16:56 WBC (3.5-10.8) 10^3/ul RBC (4.0-5.4) 10^6/ul Hgb (12.0-16.0) g/dl Hct (35-47) % MCV (80-97) fL MCH (27-31) pg MCHC (31-36) g/dl RDW (10.5-15) % Plt Count (150-450) 10^3/ul MPV (7.4-10.4) um3 Neut % (Auto) (38-83) % Lymph % (Auto) (25-47) % [place] % (Auto) (0-7) % Eos % (Auto) (0-6) % Baso % (Auto) (0-2) % Absolute Neuts (auto) (1.5-7.7) 10^3/ul Absolute Lymphs (auto) (1.0-4.8) 10^3/ul Absolute Monos (auto) (0-0.8) 10^3/ul Absolute Eos (auto) (0-0.6) 10^3/ul Absolute Basos (auto) (0-0.2) 10^3/ul Absolute Nucleated RBC 10^3/ul Nucleated RBC % INR (Anticoag Therapy) (0.77-1.02) APTT (26.0-36.3) seconds Patient Temperature ABG pH (7.35-7.45) ABG pH (Temp Correct) ABG pCO2 (35-45) mmHg ABG pCO2 (Temp Corrct ABG pO2 (80-100) mmHg ABG pO2 (Temp Correct ABG HCO3 (19-31) mmol/L ABG O2 Saturation (95-98) % ABG Base Excess (-2.0-2.0) Respiration Rate O2 Delivery Device Ventilator Type Vent Mode FiO2 Inspiratory Time PEEP Pressure Support Pressure Control EPAP IPAP BiPAP Sodium (139-145) mmol/L Potassium (3.5-5.0) mmol/L Chloride (101-111) mmol/L Carbon Dioxide (22-32) mmol/L Anion Gap (2-11) mmol/L BUN (6-24) mg/dL Creatinine (0.51-0.95) mg/dL Est GFR ( Amer) (>60) Est GFR (Non-Af Amer) (>60) BUN/Creatinine Ratio (8-20) Glucose (70-100) mg/dL Lactic Acid (0.5-2.0) mmol/L Calcium (8.6-10.3) mg/dL Magnesium (1.9-2.7) mg/dL Total Bilirubin (0.2-1.0) mg/dL AST (13-39) U/L ALT (7-52) U/L Alkaline Phosphatase (34-104) U/L Troponin I (<0.04) ng/mL B-Natriuretic Peptide ( - 100) pg/mL Total Protein (6.4-8.9) g/dL Albumin (3.2-5.2) g/dL Globulin (2-4) g/dL Albumin/Globulin Ratio (1-3) Urine Color Straw Urine Appearance Clear Urine pH 7.0 (5-9) Ur Specific [place] 1.008 L (1.010-1.030) Urine Protein Negative (Negative) Urine Ketones Negative (Negative) Urine Blood 1+ A (Negative) Urine Nitrate Negative (Negative) Urine Bilirubin Negative (Negative) Urine Urobilinogen Negative (Negative) Ur Leukocyte Esterase Trace A (Negative) Urine WBC (Auto) Trace(0-5/hpf) (Absent) Urine RBC (Auto) Absent (Absent) Ur Squamous Epith Cells Present A (Absent) Urine Bacteria 1+ A (Absent) Urine Glucose Negative (Negative) Assess/Plan/Problems-Billing Assessment: - Patient Problems (1) COPD exacerbation Current Visit: Yes Status: Acute Code(s): J44.1 - CHRONIC OBSTRUCTIVE PULMONARY DISEASE W (ACUTE) EXACERBATION SNOMED Code(s): 299808407 Comment: Severe COPD. Azithromycin po started in ED. IV methylprednisolone given in ED. Start prednisone 03/21. Guaifenesin 600 mg bid. (2) Tobacco abuse Current Visit: Yes Status: Acute Code(s): Z72.0 - TOBACCO USE SNOMED Code( s): 346785630 Comment: Pt advised to quit smoking and avoid second hand smoke. Nicoine lozenges ordered--her preference, uses at home every day. (3) PVD (peripheral vascular disease) Current Visit: Yes Status: Acute Code(s): I73.9 - PERIPHERAL VASCULAR DISEASE, UNSPECIFIED SNOMED Code(s): 095320197 Comment: Continue ASA, clopidogrel, statin. Pt admists she doesn't like pills and usually doesn't take them. (4) Carotid arterial disease Current Visit: Yes Status: Acute Code(s): I77.9 - DISORDER OF ARTERIES AND ARTERIOLES, UNSPECIFIED SNOMED Code(s): 553807846 Comment: S/P L CEA. See "PVD". (5) Anemia Current Visit: Yes Status: Acute Code(s): D64.9 - ANEMIA, UNSPECIFIED SNOMED Code(s): 118097680 Comment: B12, folate, and iron/TIBC levels ordered.
[2018-03-20] MEDS: Albuterol/Ipratropium NEB.SOL* Albuterol 2.5 MG/Ipratropium 0.5 MG 3 ML INH SCH ×2 (19:57→23:41)
[2018-03-20] MEDS: Enoxaparin(*) 40 MG/0.4 ML SYR SUBCUT SCH (21:32)
[2018-03-20] MEDS: guaiFENesin ER TAB 600 MG PO SCH (21:33)
[2018-03-20] MEDS: traZODone TAB* 50 MG TAB PO SCH (21:33)
[2018-03-21] MEDS: Albuterol/Ipratropium NEB.SOL* Albuterol 2.5 MG/Ipratropium 0.5 MG 3 ML INH SCH ×6 (02:34→23:42)
[2018-03-21] MEDS: guaiFENesin ER TAB 600 MG PO SCH ×2 (07:41→19:15)
[2018-03-21] MEDS: Atorvastatin* 80 MG TAB PO SCH (07:41)
[2018-03-21] MEDS: Clopidogrel TAB* 75 MG PO SCH (07:41)
[2018-03-21] MEDS: Nicotine Lozenge* 4 MG LOZENGE MT PRN ×3 (08:09→23:01)
[2018-03-21] MEDS ORDERED: predniSONE TAB* 20 MG PO SCH (09:00)
[2018-03-21] MEDS ORDERED: predniSONE TAB* 50 MG PO SCH (11:09)
--- NOTE | 2018-03-21 11:18 | PN ---
Subjective Date of Service: 03/21/18 Interval History: C/O inability to cough up any sputum. Much RAMIREZ. Family History: Findings - Father of lung cancer age 48, brother had SD age 47. Paternal GF of rectal ca. Social History: Findings - Still smokes 2 cigarettes per day. Drinks 4 beers per day. , lives alone. SDM is Eduardo Carvajal, her 's son in law. Past Medical History: Findings - Stents in both legs. L CEA. [facility]/ hysterectomy. 4 children. Objective Active Medications: Albuterol/Ipratropium (Duoneb (Albuterol 2.5 Mg/Ipratropium 0.5 Mg)) 1 neb INH [id number] AWAKE [facility] Last Admin: 03/21/18 08:46 Dose: 1 neb Atorvastatin Calcium (Lipitor*) 80 mg PO DAILY [facility] Last Admin: 03/21/18 07:41 Dose: 80 mg Azithromycin (Zithromax Tab*) 250 mg PO DAILY [facility] Clopidogrel Bisulfate (Plavix Tab*) 75 mg PO DAILY [facility] Last Admin: 03/21/18 07:41 Dose: 75 mg Enoxaparin Sodium (Lovenox(*)) 40 mg SUBCUT Q24H [facility] Last Admin: 03/20/18 21:32 Dose: 40 mg Guaifenesin (Mucinex*) 600 mg PO BID [facility] Last Admin: 03/21/18 07:41 Dose: 600 mg Nicotine Polacrilex (Nicotine Lozenge*) 4 mg MT Q2H PRN PRN Reason: CRAVINGS Last Admin: 03/21/18 08:09 Dose: 4 mg Prednisone (Deltasone Tab*) 50 mg PO DAILY [facility] Trazodone HCl (Desyrel Tab*) 50 mg PO BEDTIME [facility] Last Admin: 03/20/18 21:33 Dose: 50 mg Vital Signs - 8 hr 03/21/18 03/21/18 03/21/18 03:32 07:50 08:48 Temperature 98.0 F Pulse Rate 99 103 Respiratory 22 24 24 Rate Blood Pressure 137/56 (mmHg) O2 Sat by Pulse 96 95 Oximetry Oxygen Devices in Use Now: Nasal Cannula Appearance: Alert, sitting up in bed. In good spirits, looks comfortable. Eyes: No Scleral Icterus Neck: NL Appearance and Movements; NL JVP, No Thyroid Enlargement, Masses Respiratory: Symmetrical Chest Expansion and Respiratory Effort, Clear to Percussion, - - Very diminished BS BL but somewhat better air movement today, no wheezes. Cardiovascular: NL Sounds; No Murmurs; No JVD, RRR, No Edema, - Extremities: No Edema, No Clubbing, Cyanosis, - Skin: No Rash or Ulcers, No Nodules or Sclerosis, - Neurological: Alert and Oriented x 3, NL Sensation Result Diagrams: 03/20/18 15:40 03/20/18 15:40 Additional Lab and Data: Lab Results 03/20/18 03/20/18 03/20/18 Range/Units 15:35 15:40 15:40 WBC 8.1 (3.5-10.8) 10^3/ul RBC 3.45 L (4.0-5.4) 10^6/ul Hgb 10.0 L (12.0-16.0) g/dl Hct 30 L (35-47) % MCV 88 (80-97) fL MCH 29 (27-31) pg MCHC 33 (31-36) g/dl RDW 15 (10.5-15) % Plt Count 407 (150-450) 10^3/ul MPV 6.4 L (7.4-10.4) um3 Neut % (Auto) 79.1 (38-83) % Lymph % (Auto) 11.0 L (25-47) % [place] % (Auto) 7.9 H (0-7) % Eos % (Auto) 0.6 (0-6) % Baso % (Auto) 1.4 (0-2) % Absolute Neuts (auto) 6.5 (1.5-7.7) 10^3/ul Absolute Lymphs (auto) 0.9 L (1.0-4.8) 10^3/ul Absolute Monos (auto) 0.6 (0-0.8) 10^3/ul Absolute Eos (auto) 0 (0-0.6) 10^3/ul Absolute Basos (auto) 0.1 (0-0.2) 10^3/ul Absolute Nucleated RBC 0 10^3/ul Nucleated RBC % 0 INR (Anticoag Therapy) 0.94 (0.77-1.02) APTT 33.3 (26.0-36.3) seconds Patient Temperature Not Reportable ABG pH 7.51 H (7.35-7.45) ABG pH (Temp Correct) Not Reportable ABG pCO2 34 L (35-45) mmHg ABG pCO2 (Temp Corrct Not Reportable ABG pO2 69 L (80-100) mmHg ABG pO2 (Temp Correct Not Reportable ABG HCO3 27.5 (19-31) mmol/L ABG O2 Saturation 97.5 (95-98) % ABG Base Excess 4.0 H (-2.0-2.0) Respiration Rate Not Reportable O2 Delivery Device nasal cannula 4 lpm Ventilator Type Not Reportable Vent Mode Not Reportable FiO2 Not Reportable Inspiratory Time Not Reportable PEEP Not Reportable Pressure Support Not Reportable Pressure Control Not Reportable EPAP Not Reportable IPAP Not Reportable BiPAP Not Reportable Sodium (139-145) mmol/L Potassium (3.5-5.0) mmol/L Chloride (101-111) mmol/L Carbon Dioxide (22-32) mmol/L Anion Gap (2-11) mmol/L BUN (6-24) mg/dL Creatinine (0.51-0.95) mg/dL Est GFR ( Amer) (>60) Est GFR (Non-Af Amer) (>60) BUN/Creatinine Ratio (8-20) Glucose (70-100) mg/dL Lactic Acid (0.5-2.0) mmol/L Calcium (8.6-10.3) mg/dL Magnesium (1.9-2.7) mg/dL Total Bilirubin (0.2-1.0) mg/dL AST (13-39) U/L ALT (7-52) U/L Alkaline Phosphatase (34-104) U/L Troponin I (<0.04) ng/mL B-Natriuretic Peptide ( - 100) pg/mL Total Protein (6.4-8.9) g/dL Albumin (3.2-5.2) g/dL Globulin (2-4) g/dL Albumin/Globulin Ratio (1-3) Urine Color Urine Appearance Urine pH (5-9) Ur Specific [place] (1.010-1.030) Urine Protein (Negative) Urine Ketones (Negative) Urine Blood (Negative) Urine Nitrate (Negative) Urine Bilirubin (Negative) Urine Urobilinogen (Negative) Ur Leukocyte Esterase (Negative) Urine WBC (Auto) (Absent) Urine RBC (Auto) (Absent) Ur Squamous Epith Cells (Absent) Urine Bacteria (Absent) Urine Glucose (Negative) 03/20/18 03/20/18 03/20/18 Range/Units 15:40 15:40 15:40 WBC (3.5-10.8) 10^3/ul RBC (4.0-5.4) 10^6/ul Hgb (12.0-16.0) g/dl Hct (35-47) % MCV (80-97) fL MCH (27-31) pg MCHC (31-36) g/dl RDW (10.5-15) % Plt Count (150-450) 10^3/ul MPV (7.4-10.4) um3 Neut % (Auto) (38-83) % Lymph % (Auto) (25-47) % [place] % (Auto) (0-7) % Eos % (Auto) (0-6) % Baso % (Auto) (0-2) % Absolute Neuts (auto) (1.5-7.7) 10^3/ul Absolute Lymphs (auto) (1.0-4.8) 10^3/ul Absolute Monos (auto) (0-0.8) 10^3/ul Absolute Eos (auto) (0-0.6) 10^3/ul Absolute Basos (auto) (0-0.2) 10^3/ul Absolute Nucleated RBC 10^3/ul Nucleated RBC % INR (Anticoag Therapy) (0.77-1.02) APTT (26.0-36.3) seconds Patient Temperature ABG pH (7.35-7.45) ABG pH (Temp Correct) ABG pCO2 (35-45) mmHg ABG pCO2 (Temp Corrct ABG pO2 (80-100) mmHg ABG pO2 (Temp Correct ABG HCO3 (19-31) mmol/L ABG O2 Saturation (95-98) % ABG Base Excess (-2.0-2.0) Respiration Rate O2 Delivery Device Ventilator Type Vent Mode FiO2 Inspiratory Time PEEP Pressure Support Pressure Control EPAP IPAP BiPAP Sodium 131 L (139-145) mmol/L Potassium 3.5 (3.5-5.0) mmol/L Chloride 94 L (101-111) mmol/L Carbon Dioxide 28 (22-32) mmol/L Anion Gap 9 (2-11) mmol/L BUN 8 (6-24) mg/dL Creatinine 0.78 (0.51-0.95) mg/dL Est GFR ( Amer) 92.1 (>60) Est GFR (Non-Af Amer) 71.6 (>60) BUN/Creatinine Ratio 10.3 (8-20) Glucose 153 H (70-100) mg/dL Lactic Acid 2.2 H* (0.5-2.0) mmol/L Calcium 9.0 (8.6-10.3) mg/dL Magnesium 1.6 L (1.9-2.7) mg/dL Total Bilirubin 0.70 (0.2-1.0) mg/dL AST 17 (13-39) U/L ALT 9 (7-52) U/L Alkaline Phosphatase 61 (34-104) U/L Troponin I 0.01 (<0.04) ng/mL B-Natriuretic Peptide 161 H ( - 100) pg/mL Total Protein 6.8 (6.4-8.9) g/dL Albumin 3.6 (3.2-5.2) g/dL Globulin 3.2 (2-4) g/dL Albumin/Globulin Ratio 1.1 (1-3) Urine Color Urine Appearance Urine pH (5-9) Ur Specific [place] (1.010-1.030) Urine Protein (Negative) Urine Ketones (Negative) Urine Blood (Negative) Urine Nitrate (Negative) Urine Bilirubin (Negative) Urine Urobilinogen (Negative) Ur Leukocyte Esterase (Negative) Urine WBC (Auto) (Absent) Urine RBC (Auto) (Absent) Ur Squamous Epith Cells (Absent) Urine Bacteria (Absent) Urine Glucose (Negative) 03/20/18 Range/Units 16:56 WBC (3.5-10.8) 10^3/ul RBC (4.0-5.4) 10^6/ul Hgb (12.0-16.0) g/dl Hct (35-47) % MCV (80-97) fL MCH (27-31) pg MCHC (31-36) g/dl RDW (10.5-15) % Plt Count (150-450) 10^3/ul MPV (7.4-10.4) um3 Neut % (Auto) (38-83) % Lymph % (Auto) (25-47) % [place] % (Auto) (0-7) % Eos % (Auto) (0-6) % Baso % (Auto) (0-2) % Absolute Neuts (auto) (1.5-7.7) 10^3/ul Absolute Lymphs (auto) (1.0-4.8) 10^3/ul Absolute Monos (auto) (0-0.8) 10^3/ul Absolute Eos (auto) (0-0.6) 10^3/ul Absolute Basos (auto) (0-0.2) 10^3/ul Absolute Nucleated RBC 10^3/ul Nucleated RBC % INR (Anticoag Therapy) (0.77-1.02) APTT (26.0-36.3) seconds Patient Temperature ABG pH (7.35-7.45) ABG pH (Temp Correct) ABG pCO2 (35-45) mmHg ABG pCO2 (Temp Corrct ABG pO2 (80-100) mmHg ABG pO2 (Temp Correct ABG HCO3 (19-31) mmol/L ABG O2 Saturation (95-98) % ABG Base Excess (-2.0-2.0) Respiration Rate O2 Delivery Device Ventilator Type Vent Mode FiO2 Inspiratory Time PEEP Pressure Support Pressure Control EPAP IPAP BiPAP Sodium (139-145) mmol/L Potassium (3.5-5.0) mmol/L Chloride (101-111) mmol/L Carbon Dioxide (22-32) mmol/L Anion Gap (2-11) mmol/L BUN (6-24) mg/dL Creatinine (0.51-0.95) mg/dL Est GFR ( Amer) (>60) Est GFR (Non-Af Amer) (>60) BUN/Creatinine Ratio (8-20) Glucose (70-100) mg/dL Lactic Acid (0.5-2.0) mmol/L Calcium (8.6-10.3) mg/dL Magnesium (1.9-2.7) mg/dL Total Bilirubin (0.2-1.0) mg/dL AST (13-39) U/L ALT (7-52) U/L Alkaline Phosphatase (34-104) U/L Troponin I (<0.04) ng/mL B-Natriuretic Peptide ( - 100) pg/mL Total Protein (6.4-8.9) g/dL Albumin (3.2-5.2) g/dL Globulin (2-4) g/dL Albumin/Globulin Ratio (1-3) Urine Color Straw Urine Appearance Clear Urine pH 7.0 (5-9) Ur Specific [place] 1.008 L (1.010-1.030) Urine Protein Negative (Negative) Urine Ketones Negative (Negative) Urine Blood 1+ A (Negative) Urine Nitrate Negative (Negative) Urine Bilirubin Negative (Negative) Urine Urobilinogen Negative (Negative) Ur Leukocyte Esterase Trace A (Negative) Urine WBC (Auto) Trace(0-5/hpf) (Absent) Urine RBC (Auto) Absent (Absent) Ur Squamous Epith Cells Present A (Absent) Urine Bacteria 1+ A (Absent) Urine Glucose Negative (Negative) Assess/Plan/Problems-Billing Assessment: - Patient Problems (1) COPD exacerbation Current Visit: Yes Status: Acute Code(s): J44.1 - CHRONIC OBSTRUCTIVE PULMONARY DISEASE W (ACUTE) EXACERBATION SNOMED Code(s): 512960402 Comment: Severe COPD. Complete azith course. Prednisone taper. Guaifenesin 600 mg bid. Flutter valve ordered. (2) Tobacco abuse Current Visit: Yes Status: Acute Code(s): Z72.0 - TOBACCO USE SNOMED Code( s): 424278126 Comment: Using nicoine lozenges. Pt advised to have someone throw out her cigarettes at her home. (3) PVD (peripheral vascular disease) Current Visit: Yes Status: Acute Code(s): I73.9 - PERIPHERAL VASCULAR DISEASE, UNSPECIFIED SNOMED Code(s): 448109705 Comment: Continue ASA, clopidogrel, statin. Pt admists she doesn't like pills and usually doesn't take them. (4) Carotid arterial disease Current Visit: Yes Status: Acute Code(s): I77.9 - DISORDER OF ARTERIES AND ARTERIOLES, UNSPECIFIED SNOMED Code(s): 504481121 Comment: S/P L CEA. See "PVD". (5) Anemia Current Visit: Yes Status: Acute Code(s): D64.9 - ANEMIA, UNSPECIFIED SNOMED Code(s): 256636768 Comment: B12, folate both wnl. Iron/TIBC levels c/w iron deficiency. Consider GI erika as outpt. Start FeSO4,
[2018-03-21] MEDS: Ferrous Sulfate TAB* 325 MG PO SCH (12:35)
[2018-03-21] MEDS: Azithromycin TAB* 250 MG PO SCH (13:55)
[2018-03-21] MEDS: Enoxaparin(*) 40 MG/0.4 ML SYR SUBCUT SCH (17:41)
[2018-03-21] MEDS: traZODone TAB* 50 MG TAB PO SCH (23:01)
[2018-03-22] MEDS: Albuterol/Ipratropium NEB.SOL* Albuterol 2.5 MG/Ipratropium 0.5 MG 3 ML INH SCH ×5 (03:30→15:44)
[2018-03-22] MEDS: Azithromycin TAB* 250 MG PO SCH (07:47)
[2018-03-22] MEDS: Clopidogrel TAB* 75 MG PO SCH (07:47)
[2018-03-22] MEDS: Atorvastatin* 80 MG TAB PO SCH (07:47)
[2018-03-22] MEDS: Ferrous Sulfate TAB* 325 MG PO SCH (07:47)
[2018-03-22] MEDS: guaiFENesin ER TAB 600 MG PO SCH (07:48)
[2018-03-22] MEDS: Nicotine Lozenge* 4 MG LOZENGE MT PRN ×2 (07:50→14:29)
[2018-03-22 12:38] VITALS: BP 138/70
[2018-03-22] MEDS ORDERED: predniSONE TAB* 20 MG PO SCH (14:30)
[2018-03-22] MEDS ORDERED: Mometasone/Formoter 200/5 MDI INH SCH (14:30)
== END 2018-03-22 16:10 | disposition home or self-care (01) | DRG 192 ==
LOC: ED 14:54 → MERGE 17:43 → MED 17:43
PROVIDERS: ADMIT Internal Medicine; ATTEND Internal Medicine
DX: J44.1 Chronic obstructive pulmonary disease with (acute) exacerbation (principal); F17.210 Nicotine dependence, cigarettes, uncomplicated; I73.9 Peripheral vascular disease, unspecified; D64.9 Anemia, unspecified; I65.29 Occlusion and stenosis of unspecified carotid artery; Z91.030 Bee allergy status; Z79.899 Other long term (current) drug therapy; Z80.1 Family history of malignant neoplasm of trachea, bronchus and lung; Z80.0 Family history of malignant neoplasm of digestive organs; Z82.49 Family history of ischemic heart disease and other diseases of the circulatory system
CPT/HCPCS: 36415; 71045; 80053; 81003; 81015; 82607; 82746; 82803; 83540; 83550; 83605; 83735; 83880; 84484; 85025; 85610; 85730; 87086; 93005; 94640; 99284; A9270-GY; J1650; J2930; J7512

== ENCOUNTER 2018-05-08 13:42 | Emergency (ER) | payer MEDICARE, BC ==
--- OUTSIDE RECORDS SUMMARY | 2018-05-08 13:48 | XMS REPORT ---
:1940 External Reference #:[id number] Author Organization Fred Singletary M.D., [facility] Address [address] [place] [address] Phone [phone] Care Team Providers Name Role Phone Bhupinder Cruz MD Care Team Information [employer] Merchandiser Unavailable Bhupinder Cruz MD Primary Care Physician Unavailable Payers Type Date Identification Numbers Payment Provider Subscriber Medicare Primary Policy Number: [id number] Medicare [place] PayID: [id number] [address] [place] [address] Health Maintenance Policy Number: BC/[place] [employer] Organization (O) [id number] [employer] PayID: [id number] [address] [address] [place] [address] Problems Date Description Provider Status Onset: 03/16/2015 Nuclear senile cataract Jeffery Grimaldo O.D. Active Onset: 03/16/2015 Hypermetropia Jeffery Grimaldo O.D. Active Onset: 03/16/2015 Regular astigmatism Jeffery Grimaldo O.D. Active Onset: 03/16/2015 Presbyopia Jeffery Grimaldo O.D. Active Onset: 03/16/2015 Vitreous degeneration Jeffery Grimaldo O.D. Active Onset: 03/16/2015 Tear film insufficiency Jeffery Grimaldo O.D. Active Onset: 06/28/2015 Chronic allergic conjunctivitis Jeffery Grimaldo O.D. Active Onset: 04/24/2015 Status Post Surgery Jeffery Grimaldo O.D. Active Onset: 04/24/2015 Lens Replaced By Other Means Jeffery Grimaldo O.D. Active Family History Date Family Member(s) Problem(s) Comments General Noncontributory Father Unknown Father Cataract Mother Unknown Mother Glasses Social History Type Date Description Comments ETOH Use Currently consumes alcohol ETOH Use Occasionally consumes alcohol Smoking Light tobacco smoker (10 or fewer cigarettes/day) Smoking Patient is a current smoker, smokes every day Allergies, Adverse Reactions, Alerts Date Description Reaction Status Severity Comments 06/28/2015 NKDA active 03/16/2015 Bee Stings active Medications Medication Date Status Form Strength Qnty SIG Indications Ordering Provider Daisy 06/28 Active Solution 0.1% 5ml 1 drop 372.14 both [place], eyes O.D. twice a day during allergy season Atorvastatin Active Tablets 80mg Unknown Calcium /0000 Clopidogrel Active Tablets 75mg Unknown Bisulfate /0000 Hydrochlorothiazide 00 Active Tablets 25mg Unknown /0000 Lisinopril 00/00 Active Tablets 10mg Unknown /0000 Trazodone HCL 00/00 Active Tablets 50mg Unknown /0000 Ventolin HFA 00 Active Aerosol 108(90Bas Unknown /0000 e) mcg/Act Spiriva Handihaler Active Capsules 18mcg Unknown /0000 Paroxetine HCL 0000 Active Tablets 40mg Unknown /0000 Ranitidine HCL 0000 Active Tablets 150mg Unknown /0000 Trazodone HCL 00/00 Active Tablets 50mg Unknown /0000 Ipratropium 00/00 Active Solution 0.5-2.5(3 Unknown [place]/Albuterol /0000 )mg/3ML Sulfate Proair HFA 00 Active Aerosol 108(90Bas Unknown /0000 e) mcg/Act Fluconazole 00/ Active Tablets 150mg Unknown /0000 Pantoprazole Sodium [address] 20mg Unknown /0000 Peg 00 Active Solution 240gm Unknown 3350/Electrolytes /0000 Rec Omeprazole Active Capsules DR 20mg Unknown /0000 Citalopram Active Tablets 40mg Unknown Hydrobromide /0000 Hydrochlorothiazide 00 Active Tablets 25mg Unknown /0000 Lisinopril 00/00 Active Tablets 10mg Unknown /0000 Spiriva Handihaler 0000 Active Capsules 18mcg Unknown /0000 Ventolin HFA 00 Active Aerosol 108(90Bas Unknown /0000 e) mcg/Act Cheratussin ac Active Syrup 100-10mg/ Unknown /0000 5ML Paroxetine HCL 00/00 Active Tablets 10mg Unknown /0000 Vigamox 03/29 Hx Solution 0.5% 5ml 1 drop drops Singletary, - right M.D. 04/24 eye four /2014 times a day Ketorolac 03/29 Hx Solution 0.5% 10ml 1 drops Peter Trometh right Singletary, - eye M.D. 03/11 twice a day Pred Forte 03/29 Hx Suspension 1% 10ml 1 drops Peter right Hayder, - eye four M.D. 03/11 times a day Paroxetine HCL 00/ Hx Tablets 20mg Unknown /03/11 Amoxicillin 00/ Hx Capsules 500mg Unknown /03/11 Clarithromycin Hx Tablets 500mg Unknown /03/11 Prednisolone 00 Hx Suspension 1% Unknown Acetate /03/11 Ketorolac 00 Hx Solution 0.5% Unknown Tromethamine /03/11 Vigamox Hx Solution 0.5% Unknown /03/11 Paroxetine HCL 00/ Hx Tablets 20mg Unknown /03/11 Atorvastatin 00 Hx Tablets 80mg Unknown Calcium /03/11 Clopidogrel 00/ Hx Tablets 75mg Unknown Bisulfate /03/11 Vital Signs Date Vital Result Comment 03/11/2018 Intraocular Pressure Right Eye 20 mmHg Intraocular Pressure Left Eye 19 mmHg 04/24/2015 Intraocular Pressure Right Eye 14 mmHg Intraocular Pressure Left Eye 14 mmHg 04/11/2015 Intraocular Pressure Right Eye 13 mmHg 03/21/2015 Intraocular Pressure Right Eye 18 mmHg Intraocular Pressure Left Eye 18 mmHg Results Description No Information Procedures Date CPT Code Description Status 04/23/2018 17357 Remove Secondary Cataract, Laser (Yag) Completed 03/11/2018 21002 Ophthalmoscopy Subsequent Completed 03/11/2018 70834 Eye Exam Est Intermediate Completed 04/17/2015 41245 Extracapsular Cataract Extraction W/Intraocular Lens Completed 04/10/2015 60983 Extracapsular Cataract Extraction W/Intraocular Lens Completed 03/21/2015 50830 Ophthalmic Biometry By Partial Coherence Interferometry Completed W/Intra 03/21/2015 13340 Eye Exam Est Intermediate Completed 03/16/2015 96734 Eye Exam New Comprehensive Completed Encounters Type Date Location Provider CPT E/M Dx Office Visit 06/28/2015 9:00a Main Office Jeffery Grimaldo O.D. [id number] 372.14 Plan of Care Future Appointment(s):05/07/2018 2:15 pm - Jeffery Serra, OD at [facility] [id number] 11:00 am - Fred Singletary M.D. at [facility] [id number]/2018 - Fred Singletary M.D.H26.491 Other secondary cataract, right eyeFollow up:1 wk yag cap os
[2018-05-08] MEDS ORDERED: Albuterol/Ipratropium NEB.SOL* Albuterol 2.5 MG/Ipratropium 0.5 MG 3 ML INH ONE (14:10)
[2018-05-08] MEDS ORDERED: hydrOXYzine HCL TAB* 25 MG PO ONE (14:10)
--- NOTE | 2018-05-08 14:13 | UC ---
Shortness of Breath HPI - HPI Summary HPI Summary: patient to urgent care with her friend, patient c/o anxiety and SOB.... patient is very upset regarding her daughter who moved in and moved out of her home in the course of 1 month leaving a giant mess---also with the weather she feels like he COPD is flaring up - History of Current Complaint Chief Complaint: UCRespiratory Stated Complaint: ANXIOUS,DIZZY Time Seen by Provider: 05/08/18 13:52 Hx Obtained From: Patient, Medical Records Hx Last Menstrual Period: age 30 ?: No Onset/Duration: Sudden Onset, Lasting Weeks, Still Present Timing: Constant Current Severity: Mild Alleviating Factors: Bronchodilators Associated Signs & Symptoms: Positive: Cough (Nonproductive), Wheezing - Allergy/Home Medications Allergies/Adverse Reactions: Allergies Allergy/AdvReac Type Severity Reaction Status Date / Time bee venom protein (honey bee) Allergy Severe anaphylaxis Verified 05/08/18 13:51 venom-honey bee Allergy Unknown Verified 05/08/18 13:51 Reaction Details PMH/Surg Hx/FS Hx/Imm Hx Previously Healthy: No Cardiovascular History: Hypertension Respiratory History: COPD - Surgical History Surgical History: Yes Surgery Procedure, Year, and Place: NONE - Family History Known Family History: Positive: Hypertension Negative: Renal Disease - Social History Occupation: Retired Lives: Alone Alcohol Use: Daily Alcohol Amount: 6 BEERS PER DAY Substance Use Type: None Smoking Status (MU): Light Every Day Tobacco Smoker Type: Cigarettes Amount Used/How Often: NON FILTERS 1 PPD X 50 YEARS DOWN TO 3 CIGARETTES PER DAY Have You Smoked in the Last Year: Yes - Immunization History Most Recent Influenza Vaccination: never Most Recent Pneumonia Vaccination: never Review of Systems Constitutional: Negative Skin: Negative Eyes: Negative ENT: Negative Respiratory: Shortness Of Breath, Cough Cardiovascular: Negative Gastrointestinal: Negative Genitourinary: Negative Motor: Negative Neurovascular: Negative Musculoskeletal: Negative Neurological: Negative Psychological: Anxious Is Patient Immunocompromised?: No All Other Systems Reviewed And Are Negative: Yes Physical Exam Triage Information Reviewed: Yes Appearance: No Pain Distress, Ill-Appearing - older than stated age, Thin Vital Signs Reviewed: Yes Eye Exam: Normal Eyes: Positive: Conjunctiva Clear ENT Exam: Normal ENT: Positive: Normal ENT inspection, Hearing grossly normal, Pharynx normal, Uvula midline. Negative: Nasal congestion, Nasal drainage, Trismus, Muffled voice, Hoarse voice, Dental tenderness, Sinus tenderness Dental Exam: Normal Neck exam: Normal Neck: Positive: Supple, Nontender Respiratory Exam: Normal Respiratory: Positive: Chest non-tender, Respiratory distress - patient and her friend both agree that patient is at her baseline, Decreased breath sounds, Wheezing Cardiovascular Exam: Normal Cardiovascular: Positive: RRR, No Murmur, Pulses Normal, Brisk Capillary Refill Abdominal Exam: Normal Abdomen Description: Positive: Nontender, No Organomegaly, Soft Bowel Sounds: Positive: Present Musculoskeletal Exam: Normal Musculoskeletal: Positive: Strength Intact, ROM Intact, No Edema Neurological Exam: Normal Neurological: Positive: Alert, Muscle Tone Normal Psychological Exam: Normal Psychological: Positive: Normal Response To Family Skin Exam: Normal Diagnostics - EKG Cardiac Rate: NL Cardiac Rhythm: Sinus: Normal Ectopy: None ST Segment: Normal EKG Comparison: No Significant Change Re-Evaluation - Re-Evaluation First Eval Change: Improved - feels much better after duoneb and vistaril---- Shortness of Breath Dx - Course Course Of Treatment: continue nebs as ordereded, my use vistaril prn anxiety, follow with pcp or go to emergency department if needed - Differential Dx/Diagnosis Provider Diagnoses: anxiety, exacerbation of copd, hypertension in poor control Discharge - Sign-Out/Discharge Documenting (check all that apply): Patient Departure - Discharge Plan Condition: Stable Disposition: HOME Prescriptions: hydrOXYzine pamoate [Vistaril] 25 mg PO TID PRN #12 capsule PRN Reason: anxiety Patient Education Materials: COPD (Chronic Obstructive Pulmonary Disease) (ED) , Hypertension (ED), Anxiety (ED) Referrals: Ronak Means MD [Primary Care Provider] - 3 Days - Billing Disposition and Condition Condition: STABLE Disposition: Home
[2018-05-08 14:16] VITALS: BP 143/67
== END 2018-05-08 15:30 | disposition home or self-care (01) ==
LOC: UCEAST 13:42
DX: F41.9 Anxiety disorder, unspecified (principal); J44.1 Chronic obstructive pulmonary disease with (acute) exacerbation; R05 Cough; I10 Essential (primary) hypertension; Z91.030 Bee allergy status; Z82.49 Family history of ischemic heart disease and other diseases of the circulatory system; F17.210 Nicotine dependence, cigarettes, uncomplicated
CPT/HCPCS: 93005; 99203; A9270-GY; G0463

== ENCOUNTER 2018-05-10 18:35 | Emergency (ER) | payer BC, MEDICARE ==
--- NOTE | 2018-05-10 19:38 | ED ---
Dizziness - HPI Summary HPI Summary: This is scribe Braydon Lamar documenting for attending physician Abimael Villar M.D. Pt is a 78 y/o w/ c/o dizziness, breathing problems, light-headedness and difficulty walking onsetting, "a couple of days ago". On triage, it is noted that Pt called EMS because of breathing problems, but in room she notes her primary complaint is dizziness. Dizziness occurs while Pt is getting up and sometimes while just sitting. Pain is denied on triage. Pt describes dizziness as a feeling of loss of balance. She notes nausea, loss of appetite, and ISAACS but denies LOC, chest pain, cough, abdominal pain, diarrhea, fever, and chills. She is on O2 at home and also reports trembling while standing for too long. Pt lives alone, reports Hx of COPD and smokes 2 cigarettes a day. - History Of Current Complaint Chief Complaint: EDShortnessOfBreath Stated Complaint: SOB Time Seen by Provider: 05/10/18 19:24 Hx Obtained From: Patient Onset/Duration: Still Present Timing: Days - "a couple of days ago", descibed as "comes and goes" Severity Currently: None - denies pain Character: Lightheaded - described dizziness as a "feeling of loss of balance" Aggravating Factor(s): Nothing Alleviating Factor(s): Nothing Associated Signs And Symptoms: Positive: Nausea, Unsteady Gait - Pt notes difficulty walking, trembling while standing, Other: - POSITIVE: headache, loss of appetite NEGATIVE: cough, fever, chills,. Negative: Vomiting, Diarrhea, Chest Pain - Allergies/Home Medications Allergies/Adverse Reactions: Allergies Allergy/AdvReac Type Severity Reaction Status Date / Time bee venom protein (honey bee) Allergy Severe anaphylaxis Verified 05/10/18 21:07 venom-honey bee Allergy Unknown Verified 05/10/18 21:07 Reaction Details PMH/Surg Hx/FS Hx/Imm Hx Endocrine/Hematology History: Denies: Hx Diabetes Cardiovascular History: Reports: Hx Coronary Artery Disease - LEFT CAROTID ENDARTERECTOMY-2013- LEFT-JUAN, Hx Hypertension - does not take her pills, Hx Peripheral Vascular Disease - RIGHT LEG SURGERY- VASCULAR- 3 YEARS AGO-JUAN Denies: Hx Pacemaker/ICD Respiratory History: Reports: Hx Chronic Obstructive Pulmonary Disease (COPD) Comment Only: Other Respiratory Problems/Disorders - COPD History: Denies: Hx Renal Disease Sensory History: Reports: Hx Cataracts - BILATERAL, Hx Contacts or Glasses Denies: Hx Legally Blind, Hx Deafness, Hx Hearing Aid Opthamlomology History: Reports: Hx Cataracts - BILATERAL, Hx Contacts or Glasses Denies: Hx Legally Blind Psychiatric History: Reports: Hx Anxiety - ON MEDICATION FOR, Hx Depression - ON MEDICATION FOR Denies: Hx Panic Disorder - Cancer History Hx Chemotherapy: No Hx Radiation Therapy: No - Surgical History Surgery Procedure, Year, and Place: NONE Hx Anesthesia Reactions: No Infectious Disease History: No Infectious Disease History: Reports: Hx Shingles Denies: Traveled Outside the [place] in Last 30 Days - Family History Known Family History: Positive: Hypertension Negative: Renal Disease - Social History Alcohol Use: Daily Alcohol Amount: 6 BEERS PER DAY Substance Use Type: Reports: None Smoking Status (MU): Light Every Day Tobacco Smoker Type: Cigarettes Amount Used/How Often: NON FILTERS 1 PPD X 50 YEARS DOWN TO 3 CIGARETTES PER DAY Have You Smoked in the Last Year: Yes Review of Systems Negative: Fever, Chills Negative: Chest Pain Positive: Other - POSITIVE: "breathing problems". Negative: Cough Positive: Nausea, Other - POSITIVE: loss of appetite. Negative: Abdominal Pain , Vomiting, Diarrhea Neurological: Other - POSITIVE: dizziness -"feeling of loss of balance", light- headedness, difficulty walking, trembling while standing for too long Positive: Headache All Other Systems Reviewed And Are Negative: Yes Physical Exam - Summary Physical Exam Summary: Appearance: Slender elderly woman, lying in bed comfortably Skin: Warm, dry, no obvious rash Eyes: sclera anicteric, no conjunctival pallor ENT: mucous membranes moist, pharynx appears normal Neck: Supple, nontender Respiratory: Clear to auscultation, mild tachypnea, no overt air hunger. Cardiovascular: Normal S1, S2. No murmurs. Normal distal pulses in tibial and radial bilaterally. Abdomen: Soft, nontender, normal active bowel sounds present Musculoskeletal: Normal, Strength/ROM Intact, no LE edema Neurological: A&Ox3, awake and alert, mentation is normal, speech is fluent and appropriate. GCS 15 Psychiatric: affect is normal, does not appear anxious or depressed Triage Information Reviewed: Yes Vital Signs On Initial Exam: Initial Vitals Temp Pulse Resp BP Pulse Ox 98.5 F 81 24 145/76 99 05/10/18 18:38 05/10/18 18:38 05/10/18 18:38 05/10/18 18:38 05/10/18 18:38 Vital Signs Reviewed: Yes - Gergory Coma Scale Best Eye Response: 4 - Spontaneous Best Motor Response: 6 - Obeys Commands Best Verbal Response: 5 - Oriented Coma Scale Total: 15 Diagnostics - Vital Signs Vital Signs Temp Pulse Resp BP Pulse Ox 05/10/18 19:20 79 22 161/94 98 05/10/18 19:19 82 12 98 05/10/18 18:38 98.5 F 81 24 145/76 99 - Laboratory Result Diagrams: 05/10/18 20:06 05/10/18 20:06 Lab Statement: Any lab studies that have been ordered have been reviewed, and results considered in the medical decision making process. - Radiology CXR Xray Interpretation: Positive (See Comments) Radiology Interpretation Completed By: Radiologist - Hyperinflation, lingular infiltrate. This report was reviewed by ED physician. - CT CT Head CT Interpretation: No Acute Changes CT Interpretation Completed By: Radiologist - There is age-related diffuse cerebral and cerebellar volume loss and chronic microvascular ischemic disease. Likely chronic lacunar infarct at the head of the right caudate nucelus. No acute intracarnial pathology. This report was reviewed by ED physician. - EKG 1954 Cardiac Rate: NL - Rate is 77 BPM. EKG Rhythm: Sinus Rhythm EKG Interpretation: Normal EKG Dizzy Course/Dx - Course Course Of Treatment: This is a 78-year-old woman with COPD who presents with a couple days of worsening generalized weakness associated with slight increase in her baseline dyspnea and some cough. Her workup is fairly reassuring, showing only a small lingular infiltrate. She has not significant hypoxic, does not appear to be in any respiratory distress, her white blood cell count is normal, so all in all I feel she is appropriate for home care for her pneumonia. I went over this with the patient and she was in agreement, she would prefer to stay out of the hospital if possible. She understands she will need to come back if he starts feeling worse. - Diagnoses Provider Diagnoses: Pneumonia Discharge - Sign-Out/Discharge Documenting (check all that apply): Patient Departure - Discharge Plan Condition: Good Disposition: HOME Prescriptions: Azithromycin TAB* [Zithromax TAB (Z-NONA) 250 mg #6 tabs] 250 mg PO DAILY #4 tab ceFUROXime TAB(*) [Ceftin TAB 250 MG(*)] 500 mg PO BID #40 tab predniSONE [Prednisone 20 MG TAB] 40 mg PO DAILY #10 tablet Patient Education Materials: Pneumonia (ED) Referrals: Ronak Means MD [Primary Care Provider] - - Billing Disposition and Condition Condition: GOOD Disposition: Home
--- NOTE | 2018-05-10 19:58 | RAD ---
INDICATION: Weakness COMPARISON: March 20, 2018 TECHNIQUE: PA and lateral dual-energy views were obtained. FINDINGS: Bones/Soft Tissues: There are no acute bony findings. Cardiomediastinal: The cardiomediastinal silhouette is normal. Lungs: There is hyperinflation. There is a lingular infiltrate. This may be superimposed upon chronic change. Pleura: There are no pleural effusions. Other: None IMPRESSION: HYPERINFLATION. LINGULAR INFILTRATE.
[2018-05-10 20:21] LABS: ABS Basophils 0.1 10^3/ul (0-0.2); ABS Eosinophils 0.1 10^3/ul (0-0.6); ABS Lymphocytes 1.6 10^3/ul (1.0-4.8); ABS Monocytes 0.6 10^3/ul (0-0.8); ABS Neutrophils 6.6 10^3/ul (1.5-7.7); ABS Nucleated RBC 0 10^3/ul; Eosinophil % 1.5 % (0-6); Hematocrit 35 % (35-47); Hemoglobin 11.5 g/dl (12.0-16.0); Lymphocyte % 17.6 % (25-47); Mean Corpuscular HGB Conc 33 g/dl (31-36); Mean Corpuscular Hemoglobin 28 pg (27-31); Mean Corpuscular Volume 84 fL (80-97); Mean Platelet Volume 5.8 um3 (7.4-10.4); Nucleated Red Blood Cells % 0.1; Platelet Count 594 10^3/ul (150-450); Red Blood Count 4.11 10^6/ul (4.00-5.40); Red Cell Distribution Width 16 % (10.5-15)
[2018-05-10 20:35] LABS: EGFR Non-African American 68.6 (>60)
[2018-05-10 20:43] LABS: Urine Appearance Clear; Urine Blood Negative (Negative); Urine Color Straw; Urine Ketones Negative (Negative); Urine Protein Negative (Negative); Urine Specific Gravity 1.008 (1.010-1.030); Urine Urobilinogen Negative (Negative)
[2018-05-10] MEDS ORDERED: Azithromycin TAB* 250 MG PO ONE (22:55)
[2018-05-10] MEDS ORDERED: predniSONE TAB* 20 MG PO ONE (22:56)
[2018-05-10] MEDS ORDERED: ceFUROXime TAB(*) 250 MG PO ONE (22:56)
[2018-05-10] MEDS ORDERED: ceFUROXime TAB(*) 250 MG ONE (23:18)
[2018-05-10 23:23] VITALS: BP 143/75
--- NOTE | 2018-05-11 07:28 | RAD ---
Indication: Weakness, headache. CT of the brain was performed without IV contrast. Ventricular structures are midline. No midline shift is noted. Central and cortical atrophy is noted. Periventricular lucency consistent with chronic ischemic White matter change is noted. There is no evidence of intracranial mass or hemorrhage. 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 No other high or low density lesions are noted. Mastoid air cells and paranasal sinuses are otherwise unremarkable. IMPRESSION: No intracranial mass or hemorrhage is noted.
== END 2018-05-11 00:55 | disposition home or self-care (01) ==
LOC: ED 18:35
DX: J18.9 Pneumonia, unspecified organism (principal); J44.9 Chronic obstructive pulmonary disease, unspecified; F17.210 Nicotine dependence, cigarettes, uncomplicated; F41.8 Other specified anxiety disorders; Z99.81 Dependence on supplemental oxygen; Z79.899 Other long term (current) drug therapy
CPT/HCPCS: 36415; 70450; 71046; 80053; 81003; 83605; 84443; 84484; 85025; 93005; 99284; A9270-GY; J7512

== ENCOUNTER 2018-06-03 17:46 | Inpatient (IN) | payer MEDICARE ==
--- NOTE | 2018-06-03 18:03 | ED ---
Shortness of Breath - HPI Summary HPI Summary: This is scribe Ed Lucille documenting for attending Blair Rodriguez MD. 78 y/o female BIBA c/o worsening SOB today, aggravated with exertion. Pt first developed sudden onset dizziness, lightheadedness and SOB several days ago, present since. Pt uses a cane to ambulate. PT has not had a cough. Denies fever. Pt has used nebulizer >4x today to alleviate SOB. Pt is on 2L O2 at home. I, Dr. Rodriguez, personally performed the services described in this documentation as scribed in my presence and it is both accurate and complete. - History of Current Complaint Chief Complaint: EDShortnessOfBreath Time Seen by Provider: 06/03/18 17:58 Hx Obtained From: Patient Onset/Duration: Sudden Onset, Lasting Days Aggrevating Factors: Movement - exertion Alleviating Factors: Bronchodilators, Oxygen Associated Signs & Symptoms: Dizzy - and lightheadedness - Allergy/Home Medications Allergies/Adverse Reactions: Allergies Allergy/AdvReac Type Severity Reaction Status Date / Time bee venom protein (honey bee) Allergy Severe anaphylaxis Verified 05/10/18 21:07 venom-honey bee Allergy Unknown Verified 05/10/18 21:07 Reaction Details Home Medications: Home Medications Albuterol inh POWDER (NF) [Proair Respiclick] 2 puff INH Q4HR PRN 06/03/18 [ History Confirmed 06/03/18] Clopidogrel TAB* [Plavix TAB*] 75 mg PO DAILY 06/03/18 [History Confirmed ] Hydrochlorothiazide TAB* [Hydrodiuril TAB*] 25 mg PO DAILY 06/03/18 [History Confirmed 06/03/18] Lisinopril TAB* [Prinivil TAB*] 10 mg PO QPM 06/03/18 [History Confirmed ] Mometasone/Formoter 200/5 MDI* [Dulera 200/5 MDI*] 2 puff INH BID 06/03/18 [ History Confirmed 06/03/18] PARoxetine HCL TAB* [Paxil TAB*] 20 mg PO DAILY 06/03/18 [History Confirmed 07/13] hydrOXYzine HCL TAB* [Atarax 25 MG TAB*] 25 mg PO Q3HR PRN 06/03/18 [History Confirmed 06/03/18] PMH/Surg Hx/FS Hx/Imm Hx Previously Healthy: No Endocrine/Hematology History: Denies: Hx Diabetes Cardiovascular History: Reports: Hx Coronary Artery Disease - LEFT CAROTID ENDARTERECTOMY-2013- LEFT-JUAN, Hx Hypertension - does not take her pills, Hx Peripheral Vascular Disease - RIGHT LEG SURGERY- VASCULAR- 3 YEARS AGO-JUAN Denies: Hx Pacemaker/ICD Respiratory History: Reports: Hx Chronic Obstructive Pulmonary Disease (COPD) Comment Only: Other Respiratory Problems/Disorders - COPD History: Denies: Hx Renal Disease Sensory History: Reports: Hx Cataracts - BILATERAL, Hx Contacts or Glasses Denies: Hx Legally Blind, Hx Deafness, Hx Hearing Aid Opthamlomology History: Reports: Hx Cataracts - BILATERAL, Hx Contacts or Glasses Denies: Hx Legally Blind Psychiatric History: Reports: Hx Anxiety - ON MEDICATION FOR, Hx Depression - ON MEDICATION FOR Denies: Hx Panic Disorder - Cancer History Hx Chemotherapy: No Hx Radiation Therapy: No - Surgical History Surgery Procedure, Year, and Place: NONE Hx Anesthesia Reactions: No Infectious Disease History: No Infectious Disease History: Reports: Hx Shingles Denies: Traveled Outside the [place] in Last 30 Days - Family History Known Family History: Positive: Hypertension Negative: Renal Disease - Social History Alcohol Use: Daily Alcohol Amount: 6 BEERS PER DAY Hx Substance Use: No Substance Use Type: Reports: None Hx Tobacco Use: Yes Smoking Status (MU): Light Every Day Tobacco Smoker Type: Cigarettes Amount Used/How Often: NON FILTERS 1 PPD X 50 YEARS DOWN TO 3 CIGARETTES PER DAY Have You Smoked in the Last Year: Yes Review of Systems Constitutional: Negative Eyes: Negative ENT: Negative Cardiovascular: Negative Positive: Shortness Of Breath. Negative: Cough Gastrointestinal: Negative Genitourinary: Negative Musculoskeletal: Negative Skin: Negative Neurological: Other - dizziness, lightheadedness Psychological: Normal All Other Systems Reviewed And Are Negative: Yes Physical Exam - Summary Physical Exam Summary: Appearance: The patient is well-nourished in no acute distress and in no acute pain. Skin: The skin is warm and dry and skin color reflects adequate perfusion. HEENT: The head is normocephalic and atraumatic. The pupils are equal and reactive. The conjunctivae are clear and without drainage. Nares are patent and without drainage. Mouth reveals moist mucous membranes and the throat is without erythema and exudate. The external ears are intact. The ear canals are patent and without drainage. The tympanic membranes are intact. Neck: The neck is supple with full range of motion and non-tender. There are no carotid bruits. There is no neck vein distension. Respiratory: Chest is non-tender. Lungs are clear to auscultation and breath sounds are symmetrical and equal but decreased. The patient is tachypnic and using some accessory muscles. Cardiovascular: Heart is regular rate and rhythm. There is no murmur or rub auscultated. There is no peripheral edema and pulses are symmetrical and equal. Abdomen: The abdomen is soft and non-tender. There are normal bowel sounds heard in all four quadrants and there is no organomegaly palpated. Musculoskeletal: There is no back tenderness noted. Extremities are non-tender with full range of motion. There is good capillary refill. There is no peripheral edema or calf tenderness elicited. Neurological: Patient is alert and oriented to person, place and time. The patient has symmetrical motor strength in all four extremities. Cranial nerves are grossly intact. Deep tendon reflexes are symmetrical and equal in all four extremities. Psychiatric: The patient has an appropriate affect and does not exhibit any anxiety or depression. Triage Information Reviewed: Yes Vital Signs On Initial Exam: Initial Vitals Temp Pulse Resp BP Pulse Ox 97.6 F 87 17 202/94 97 06/03/18 17:58 06/03/18 17:58 06/03/18 17:58 06/03/18 17:58 06/03/18 17:58 Vital Signs Reviewed: Yes Diagnostics - Vital Signs Vital Signs Temp Pulse Resp BP Pulse Ox 06/03/18 17:58 97.6 F 87 17 202/94 97 - Laboratory Result Diagrams: 06/03/18 18:15 06/03/18 18:15 Lab Statement: Any lab studies that have been ordered have been reviewed, and results considered in the medical decision making process. - Radiology CXR Radiology Interpretation Completed By: Radiologist - #. Mild airspace consolidation at the LEFT lung base may represent resolving airspace consolidation compared with May 10, 2018 exam or recurrent pneumonia. #. Stigmata of chronic obstructive pulmonary disease. - EKG 1 EKG Interpretation: 18:30 - SR @ 93 BPM Course/Dx - Course Course Of Treatment: Ms. Jesus Frias presented in obvious respiratory insufficiency. She was tachycardic and tachypneic with decreased breath sounds in all lung roldan using some accessory muscles. She was given duo nebs and steroids during her workup and the hospitalists were asked to admit her. - Diagnoses Provider Diagnoses: COPD exacerbation - Physician Notifications Discussed Care of Patient With: Paxton Hutchinson Time Discussed With Above Provider: 19:10 Instructed by Provider To: Admit As Inpatient - Critical Care Time Critical Care Time: 30-74 min Discharge - Sign-Out/Discharge Documenting (check all that apply): Patient Departure - Discharge Plan Condition: Stable Disposition: ADMITTED TO [facility] Referrals: Ronak Means MD [Medical Doctor] - - Billing Disposition and Condition Condition: STABLE Disposition: Admitted to [facility]
[2018-06-03] MEDS ORDERED: methylPREDNISolone 125 MG* 2 ML VIAL IV ONE (18:19)
[2018-06-03] MEDS ORDERED: Albuterol/Ipratropium NEB.SOL* Albuterol 2.5 MG/Ipratropium 0.5 MG 3 ML INH ONE (18:19)
[2018-06-03 18:25] LABS: ABS Basophils 0 10^3/ul (0-0.2); ABS Eosinophils 0.1 10^3/ul (0-0.6); ABS Lymphocytes 1.3 10^3/ul (1.0-4.8); ABS Monocytes 0.5 10^3/ul (0-0.8); ABS Neutrophils 3.4 10^3/ul (1.5-7.7); ABS Nucleated RBC 0 10^3/ul; Eosinophil % 2.2 % (0-6); Hematocrit 35 % (35-47); Hemoglobin 11.4 g/dl (12.0-16.0); Lymphocyte % 24.8 % (25-47); Mean Corpuscular HGB Conc 33 g/dl (31-36); Mean Corpuscular Hemoglobin 27 pg (27-31); Mean Corpuscular Volume 83 fL (80-97); Mean Platelet Volume 6.3 um3 (7.4-10.4); Nucleated Red Blood Cells % 0.1; Platelet Count 366 10^3/ul (150-450); Red Blood Count 4.17 10^6/ul (4.00-5.40); Red Cell Distribution Width 17 % (10.5-15); White Blood Count 5.4 10^3/ul (3.5-10.8)
[2018-06-03 18:33] LABS: INR 0.95 (0.77-1.02)
--- OUTSIDE RECORDS SUMMARY | 2018-06-03 18:42 | XMS REPORT ---
:1940 External Reference #:[id number] Author Organization [facility] Address [address] [place] [address] Phone [phone] Care Team Providers Name Role Phone Apollo Jasso MD Care Team Information Software Test Manager Unavailable Apollo Jasso MD Primary Care Physician Unavailable Payers Type Date Identification Numbers Payment Provider Subscriber Medicare Primary Effective: Policy Number: Medicare [place] Conchis Lee 2006 [id number] Al[employer]racia PayID: [id number] [address] [place] [address] Medigap Part B Effective: Policy Number: BC/BS Of [facility] Conchis Lee 2017 [id number] [place] PayID: [id number] [address] [address] [place] [address] Problems Date Description Provider Status Onset: 11/27/2005 Benign essential hypertension Jeff Ramirez M.D. Active Onset: 02/26/2006 Chronic obstructive lung disease Jeff Ramirez M.D. Active Family History Date Family Member(s) Problem(s) Comments Mother Smoker Social History Type Date Description Comments Lives With Alone Smoking Light tobacco smoker (10 or fewer cigarettes/day) Allergies, Adverse Reactions, Alerts Date Description Reaction Status Severity Comments 05/31/2018 NKDA active Medications Medication Date Status Form Strength Qnty SIG Indications Ordering Provider Paxil 05/31 Active Tablets 20mg 90tab take 1/2 Apollo TRadha /2017 s tab daily Romero, for 4 MD days, then 1 by mouth every day Atorvastatin 00/00 Active Tablets 80mg 90tab 1 by Apollo Bernardo Calcium / s mouth Romero, every day Vitamin B12 Active Tablets ER 1000mcg 90tab 1 by Apollo T. / s mouth Romero, every day Ipratropium Active Solution 0.5-2.5(3 use 0.5mg Unknown [place]/Albuterol )mg/3ML every 6 Sulfate hours prn Ventolin HFA Active Aerosol 108(90Bas 16gm take 1-2 Apollo T. / e) puffs Romero, mcg/Act inhaled MD every 4 hours as needed for wheezing or tightness in the chest Trazodone HCL Active Tablets 50mg 1 -2 by Unknown / mouth every night at bedtime as needed insomnia Dulera Active Aerosol 200-5mcg/ 26.4g 2 puff Apollo T. / Act m twice a Romero, day Hydroxyzine Active Capsules 25mg 270ca 1 by Apollo TRadha Pamoate ps mouth Romero, every MD three hours as needed Physical Therapy 05/28 Hx treatment Jeff T. /2005 and James, - evaluatio M.D. 05/30 n pain And Vertigo Symptoms HCTZ - 05/07 Hx 25mg 30uni 1 PO qam Jeff TRadha Hydrochlorothiazi /2005 [place] - M.DRadha 05/30 Nicotrol Inhaler 02/26 Hx Cartridges 10mg 42uni Use as Jeff T. /2005 ts Directed James, - M.D. 04/30 Physical Therapy 11/27 Hx treatment Jeff T. /2005 and James, - evaluatio M.D. 02/26 n lt shoulder and upper back pain Cozaar 04/24 Hx Tablets 100mg 30tab 1 po qd Jeff T. /2004 s James, - M.D. 05/30 Trazadone 10/24 Hx 50mg 60uni 1-2 po Jeff T. /2003 ts q hs prn James, - for sleep M.D. 05/30 Lexapro 10/10 Hx 10mg 30uni 1 po qd Jeff T. /2003 ts James, - M.D. 02/26 Cozaar 01/14 Hx 50mg 30uni 1 po qd Jeff T. /2003 Kelsi Morrow M.D. 04/24 Celexa 01/14 Hx Tabs 20mg [facility] 10/10 Wellbutrin SR 01/14 Hx 150mg 60uni 1 po qd- Jeff Reddy. ts bid Kelsi Ramirez M.D. 10/10 Bactrim DS 10/04 Hx 1 po bid [facility] 10/13 Medrol Dosepack 10/04 Hx 4mg as Directed [facility] 10/13 Symbicort Hx Aerosol 160-4.5mc inhale Unknown /0000 g/Act two puffs - by mouth 05/31 twice a day Vital Signs Date Vital Result Comment 05/31/2018 BP Systolic 118 mmHg BP Diastolic 50 mmHg Heart Rate 108 /min Body Temperature 98.6 F Respiratory Rate 20 /min O2 % BldC Oximetry 86 % Height 64 inches 5'4" Weight 114.00 lb BMI (Body Mass Index) 19.6 kg/m2 07/30/2006 BP Systolic 160 mmHg BP Diastolic 92 mmHg Heart Rate 88 /min Height 64 inches 5'4" Weight 129.00 lb BMI (Body Mass Index) 22.1 kg/m2 07/16/2006 BP Systolic 148 mmHg BP Diastolic 90 mmHg Heart Rate 84 /min Height 64 inches 5'4" Weight 135.00 lb BMI (Body Mass Index) 23.2 kg/m2 05/28/2006 BP Systolic 146 mmHg BP Diastolic 84 mmHg Heart Rate 80 /min Height 64 inches 5'4" Weight 127.00 lb BMI (Body Mass Index) 21.8 kg/m2 05/14/2006 BP Systolic 90 mmHg BP Diastolic 64 mmHg Heart Rate 68 /min Height 64 inches 5'4" 05/07/2006 BP Systolic 150 mmHg BP Diastolic 88 mmHg Heart Rate 88 /min Height 64 inches 5'4" Weight 126.00 lb BMI (Body Mass Index) 21.6 kg/m2 04/30/2006 BP Systolic 156 mmHg BP Diastolic 92 mmHg Heart Rate 84 /min Height 64 inches 5'4" Weight 124.00 lb BMI (Body Mass Index) 21.3 kg/m2 02/26/2006 BP Systolic 130 mmHg BP Diastolic 80 mmHg Heart Rate 80 /min Height 64 inches 5'4" Weight 125.00 lb BMI (Body Mass Index) 21.5 kg/m2 11/27/2005 BP Systolic 152 mmHg BP Diastolic 86 mmHg Heart Rate 88 /min Height 64 inches 5'4" Weight 126.00 lb BMI (Body Mass Index) 21.6 kg/m2 04/24/2005 BP Systolic 176 mmHg BP Diastolic 100 mmHg Heart Rate 68 /min Height 64 inches 5'4" Weight 117.00 lb BMI (Body Mass Index) 20.1 kg/m2 01/16/2005 BP Systolic 136 mmHg BP Diastolic 86 mmHg Heart Rate 76 /min Height 63.7 inches 5'3.70" Weight 126.00 lb BMI (Body Mass Index) 21.8 kg/m2 10/24/2004 BP Systolic 138 mmHg BP Diastolic 70 mmHg Heart Rate 88 /min Height 63.7 inches 5'3.70" Weight 126.50 lb BMI (Body Mass Index) 21.9 kg/m2 10/10/2004 BP Systolic 176 mmHg BP Diastolic 90 mmHg Heart Rate 84 /min Height 63.7 inches 5'3.70" Weight 126.00 lb BMI (Body Mass Index) 21.8 kg/m2 02/28/2004 BP Systolic 138 mmHg BP Diastolic 90 mmHg Heart Rate 84 /min Height 63.7 inches 5'3.70" Weight 148.00 lb BMI (Body Mass Index) 25.6 kg/m2 01/15/2004 BP Systolic 150 mmHg BP Diastolic 88 mmHg Heart Rate 74 /min Height 63.7 inches 5'3.70" Weight 147.00 lb BMI (Body Mass Index) 25.5 kg/m2 10/13/2003 BP Systolic 158 mmHg BP Diastolic 90 mmHg Heart Rate 80 /min Height 63.7 inches 5'3.70" Weight 142.00 lb BMI (Body Mass Index) 24.6 kg/m2 10/04/2003 BP Systolic 180 mmHg BP Diastolic 100 mmHg Heart Rate 92 /min Body Temperature 98.6 F O2 % BldC Oximetry 94 % Height 63.7 inches 5'3.70" Weight 144.00 lb BMI (Body Mass Index) 24.9 kg/m2 Results Test Date Test Result H/L Range Note Laboratory test finding 05/28/2006 Free T4 0.87 ng/dL 0.8-1.8 ([facility]rex) TSH ([facility]ma/[facility]rex) 2.09 CBC ([facility]) ([facility]) New 05/28/2006 WBC 7.8 RBC 4.24 Hemoglobin (Fma/CMC/CTX) 14.0 g/dL 12.0-15.6 Hematocrit ([facility]ma/CMC/CTX) 41 % 35-46 Mean Corpuscular Vol 97.6 Mean Corpuscular Hemaglobin 33.0 Mean Corpuscular Hemo Concen 33.8 RDW 13.2 Platelets 355 thous/L 130-400 Mean Platelet Volume 7.2 Auto-Diff - Gran# 4.3 Lymph# 2.9 Monocytes 0.5 Gran% 55.5 Lymph% 37.5 Monocytes 7.0 % Basic Metabolic ([facility]) 05/14/2006 Glucose, Serum (a/CMC/CTX) 93 mg/dL 70 -105 BUN ([facility]ma/[facility]rex) 13 mg/dL 6-26 Creatinine (a/CMC/CTX) 0.9 mg/dL 0.6-1.4 BUN/Creatinin Ratio 13.8 8.0-36 Sodium 134 134-149 Potassium 4.9 3.6-5.5 Chloride 96 mEq/L 94-112 Co2 27 21-32 Calcium (a/CMC/[facility]rex) 9.5 mg/dL 8.6-10.2 Ua - Micro ([facility] New) 04/24/2005 Appearance CLEAR Color YELLOW Glucose NEG Bilirubin ICTO NEG Ketones TRACE SP Grav 1.015 Blood TRACE-LYSED PH 6.0 Protein SSA TRACE Urobil 0.2 Nitrite NEG Leukocytes NEG Hyaline - /Lpf Granular - /Lpf WBC'S 1-3 RBC'S 3-5 Mucus MOD AMT /Lpf Epith FEW Bacteria TR Amorphous - /Lpf Crystals - /Lpf Comments FEW YEAST CELLS Laboratory test finding 10/10/2004 Sed Rate (a/CMC/[facility]rex) 17mm CBC Electronic ([facility]) 10/10/2004 WBC 8.1 3.6-9.6 Lymphocytes 39.7 % 20.5 - 51.1 Monocytes 6.1 % 1.7-9.3 Granulocytes 54.2 % 42.2 - 75.2 Lymphocytes 3.2 10^3/uL 0.7 - 4.9 Monocytes 0.5 10^3/uL 0.1 - 0.9 Granulocytes 4.4 10^3/uL 1.5 - 7.2 RBC 4.20 3.90-5.70 Hemoglobin (Fma/CMC/CTX) 13.2 g/dL 12.1 - 17.2 Hematocrit (Fma/CMC/CTX) 40.1 % 36.1 - 50.3 Mean Corpuscular Vol 95.6 82.2-97.4 Mean Corpuscular Hemaglobin 31.4 27.6-33.3 Mean Corpuscular Hemo Concen 32.9 Low 33.0-35.5 RDW 13.1 11.6-13.7 Platelets 496. 10^3/ul High 150-400 Mean Platelet Volume 7.0 Low 7.4-10.4 Ua - Micro ([facility]) 10/10/2004 Appearance CLEAR Color LT YELLOW Glucose NEG Bilirubin NEG Ketones NEG SP Grav <1.005 Blood TRACE-LYSED PH 5.5 Protein NEG Urobil 0.2 Nitrite NEG Leukocytes NEG Hyaline - /Lpf Granular - /Lpf WBC'S 0-1 RBC'S 0-1 Mucus - /Lpf Epith RARE Bacteria RARE Amorphous - /Lpf Crystals - /Lpf Comments - Comp Metabolic (a) 10/10/2004 Glucose, Serum (Fma/CMC/CTX) 104 mg/dL 70 -118 Female BUN ([facility]ma/[facility]) 16 mg/dL 6-26 Creatinine, Serum 0.8 mg/dL 0.6-1.4 BUN/Creatinin Ratio 19.6 8.0-36 Sodium 144 134-149 Potassium 5.3 3.6-5.5 Chloride 101 mEq/L 94-112 Co2 30 21-32 Calcium ([facility]ma/[facility]rex) 10.0 mg/dL 8.6-10.2 Total Protein 7.1 g/dL 6.3-8.1 Albumin (Fma/[facility]CC/Centrex) 4.2 3.8-5.5 Globulin 2.9 2.0-4.8 A/G Ratio (A/G Ratio) 1.4 0.6-2.2 Alkaline Phosphatase (F/C/CTX) 73 U/L 30-110 Alt (SGPT) 16 7-35 Ast (Sgot) (Fma/CMC/[facility]rex) 18 U/mL 5-34 Bilirubin, Total 0.4 mg/dL 0.2-1.3 Laboratory test finding 10/10/2004 Bilirubin, Direct 0.2 mg/dL 0-0.6 Bilirubin, Indirect 0.20 ml/dl 0.10-1.0 TSH (a/[facility]) 2.19 uIU/ml 0.5-6.0 T4 Free 1.11 Laboratory test finding 10/13/2003 Hemoglobin A1c (F/C/CTX) 5.8 % High 4.1 -5.7 Comp+Liver ([facility]) 10/04/2003 Glucose, Serum 178 mg/dL High 70-118 (Fma/CMC/CTX) BUN (Fma/CMC/[facility]rex) 10 mg/dL 6-26 Creatinine (a/CMC/CTX) 0.7 mg/dL 0.6-1.4 BUN/Creatinin Ratio 14.2 8.0-36 Sodium 143 134-149 Potassium 4.3 3.6-5.5 Chloride 110 mEq/L 94-112 Co2 26 21-32 Calcium (Fma/CMC/[facility]rex) 9.2 mg/dL 8.6-10.0 Total Protein 7.5 g/dL 6.3-8.1 Albumin (Fma/CMC/[facility]rex) 4.7 3.8-5.5 Globulin 2.8 2.0-4.8 A/G Ratio (a/CMC) 1.7 0.6-2.2 Alkaline Phosphatase (F/C/CTX) 76 U/L 30-110 Alt (SGPT) (Fma/CMC/[facility]rex) 20 10-40 Ast (Sgot) (Fma/CMC/[facility]rex) 21 U/mL 5-34 Bilirubin, Total 0.4 mg/dL 0.2-1.3 Bilirubin, Direct 0.2 mg/dL 0-0.6 Bilirubin, Indirect 0.19 ml/dl 0.10-1.0 Laboratory test finding 10/04/2003 TSH (a/CMC/[facility]rex) 0.57 uIU/ml 0.5- 6.0 CBC W/ Manual Dif ([facility]) 10/04/2003 WBC 7.6 3.6-9.6 RBC 4.47 3.90-5.70 1 Hemoglobin (Fma/CMC/CTX) 13.9 g/dL 12.1 - 17.2 Hematocrit (Fma/CMC/CTX) 41.6 % 36.1 - 50.3 Mean Corpuscular Vol 93.1 82.2-97.4 Mean Corpuscular Hemaglobin 31.1 27.6-33.3 Mean Corpuscular Hemo Concen 33.4 33.0-35.5 RDW 13.5 11.6-13.7 Platelets 438 10^3/ul High 150-400 2 Mean Platelet Volume 6.2 Low 7.4-10.4 Neutrophils 70 Band 11 Lymph From [facility] 18 Monocytes 1 % Low 1.7-9.3 Eosinophils -- Basophils -- Metamyelocytes -- Myelocytes -- Promyelocyte -- Blast -- Atypical Lymph -- NRBC -- Morphology ([facility]ma/[facility]) -- Comments -- 1 RBC MORPH NORMAL 2 PLTS SLIGHTLY INCREASED ON SMEAR Procedures Date CPT Code Description Status 04/24/2005 37950 I & D Abscess Simple Completed 10/04/2003 13786 Pulse Oximetry Completed Encounters Type Date Location Provider CPT E/M Dx Office Visit 07/30/2006 1:40p [facility] Office Jeff Ramirez M.D. 50323 386.2 401.1 723.1 496 Office Visit 07/16/2006 2:00p [facility] Office Jeff Ramirez M.D. 68148 386.2 723.1 401.1 447.8 Office Visit 05/28/2006 8:00a [facility] Office Jeff Ramirez M.D. 89991 401.1 780.79 386.2 723.1 Office Visit 05/14/2006 8:20a [facility] Office Jeff Ramirez M.D. 06934 780.79 401.1 496 787.91 Office Visit 05/07/2006 10:10a [facility] Office Jeff Ramirez M.D. 28862 386.2 784.0 959.01 401.1 496 Office Visit 04/30/2006 2:00p [facility] Office Jeff Ramirez M.D. 68876 386.2 784.0 959.01 401.1 Office Visit 02/26/2006 1:20p [facility] Office Jeff Ramirez M.D. 40966 401.1 496 780.52 Office Visit 11/27/2005 1:20p [facility] Office Jeff Ramirez M.D. 52107 786.50 840.4 401.1 496 300.00 Office Visit 04/24/2005 10:20a [facility] Office Jeff Ramirez M.D. 17342 496 300.4 599.7 681.02 Office Visit 01/16/2005 9:20a [facility] Office Jeff Ramirez M.D. 29268 401.1 300.4 Office Visit 10/24/2004 11:40a [facility] Office Jeff Ramirez M.D. 59894 300.00 300.4 Office Visit 10/10/2004 2:00p [facility] Office Jeff Ramirez M.D. 05656 599.7 783.21 300.4 780.79 Office Visit 02/28/2004 1:00p [facility] Office Jeff Ramirez M.D. 57139 300.4 401.1 Office Visit 01/15/2004 1:50p Main Office Jeff Ramirez M.D. 68562 401.9 300.4 Office Visit 10/13/2003 2:50p Main Office Jeff Ramirez M.D. 34804 790.6 466.0 401.1 Office Visit 10/04/2003 2:20p Main Office Jeff Ramirez M.D. 48077 780.79 466.0 786.2 465.9 Plan of Care Future Appointment(s):07/05/2018 10:00 am - Apollo Jasso MD at [facility] [id number]/31/2018 - Apollo Jasso MDJ44.0 Chronic obstructive pulmon disease w acute lower resp [id number] Anxiety disorder, [id number] Essential (primary) [id number] Coronary atherosclerosis due to lipid rich yulceoL59.22 Occlusion and stenosis of left carotid arteryAllNew Medication :Paxil 20 mgComments:~B_~U_Medication Management~b_~u_ Patient Understands medications she's taking? Yes No Are there Barriers to Adherence? Yes No Has the patient been asked about herbal supplements and therapies, and OTC meds? Yes No
[2018-06-03 18:46] LABS: EGFR Non-African American 88.4 (>60)
--- NOTE | 2018-06-03 18:48 | RAD ---
Indication: Worsening shortness of breath over the last few days. History of COPD. Comparison: May 10, 2018 Technique: Upright AP 1826 hours Report: Elevated lung volumes and rarefaction of the interstitial markings. Mild airspace consolidation at the LEFT lung base less prominent than on the May 10, 2018 exam. Negative for pleural effusion or pneumothorax. The heart, pulmonary vasculature, and mediastinal contours are unremarkable. Anterior cervical fusion hardware. IMPRESSION: #. Mild airspace consolidation at the LEFT lung base may represent resolving airspace consolidation compared with May 10, 2018 exam or recurrent pneumonia. #. Stigmata of chronic obstructive pulmonary disease.
[2018-06-03] MEDS ORDERED: Acetaminophen TAB* 325 MG PO PRN (20:28)
[2018-06-03] MEDS ORDERED: hydrALAZINE IV* 20 MG/ML VIAL IV SLOW PU PRN (20:32)
[2018-06-03] MEDS ORDERED: Levofloxacin 750 MG IVPREMIX(* 750 MG/150 ML BAG ONE (20:47)
[2018-06-03] MEDS ORDERED: Levofloxacin 750 MG IVPREMIX(* 750 MG/150 ML BAG IVPB SCH (21:00)
[2018-06-03] MEDS ORDERED: Albuterol/Ipratropium NEB.SOL* Albuterol 2.5 MG/Ipratropium 0.5 MG 3 ML INH SCH ×2 (21:00→23:00)
[2018-06-03] MEDS ORDERED: predniSONE TAB* 20 MG PO SCH (21:00)
[2018-06-03] MEDS: Mometasone/Formoter 200/5 MDI INH SCH (22:35)
[2018-06-03] MEDS: Heparin VIAL(*) 5000 UNITS/ML VIAL (FIVE THOUSAND) SUBCUT SCH (22:41)
--- NOTE | 2018-06-03 22:46 | HP ---
CC: Dr. Jasso.* HISTORY AND PHYSICAL: DATE OF ADMISSION: 06/03/18 PRIMARY CARE PROVIDER: Dr. Jasso. ATTENDING PHYSICIAN WHILE IN THE HOSPITAL: Vinayak Rubio MD * (report dictated by Paxton Hutchinson NP) CHIEF COMPLAINT: 1. Cough. 2. Shortness of breath. HISTORY OF PRESENTING ILLNESS: Ms. Jesus Frias is a 78-year-old female patient ; she has a history of severe COPD. She is still smoking up until Thursday, this week. She smokes about 2 cigarettes a day. She smoked for 60 plus years. She is on 2 L at all time. She does have hypertension, hyperlipidemia, PVD, degenerative disk disease, and history of GI bleed in the past. She is coming into the ED today stating that she has been having progressive worsening dyspnea on exertion and increasing shortness of breath, decreased appetite. She had cold, sweats last night. She just had not been feeling good and her breathing got worse in the last 24 hours, it just got progressively worse and worse where she could barely get up to walk to her bathroom. She denied having any chest pain or any abdominal pain or any nausea or vomiting or diarrhea. She says that she has not really been coughing until she got here to the emergency room. There has not been any congestion and no sick contacts that she is aware of. She was here about 2 months ago with COPD exacerbation. She came into the ED. X-rays did find that there appeared to be a consolidation, in addition to this, it was felt that she may have another exacerbation of her COPD, so we were asked to evaluate for admission. PAST MEDICAL HISTORY: Significant for: 1. COPD on 2 L oxygen at all time. 2. Hypertension. 3. Hyperlipidemia. 4. History of peripheral vascular disease. 5. Degenerative disk disease. 6. History of GI bleed. PAST SURGICAL HISTORY: 1. The patient has had a tonsillectomy. 2. She has had cervical diskectomy with fusion. 3. Lumbar laminectomy. 4. Appendectomy. 5. Hysterectomy. 6. Right iliac artery stenting. 7. Left carotid endarterectomy. HOME MEDICATIONS: Include, 1. Lisinopril 10 mg daily. 2. Paxil 20 mg daily. 3. B12 1000 mcg p.o. daily. 4. Dulera 2 puffs inhaled b.i.d. 5. Lipitor 80 mg daily. 6. ProAir 2 puffs inhaled every 4 hours as needed. 7. Trazodone 50 mg to 100 mg at bedtime. 8. Hydrochlorothiazide 25 mg a day. 9. Plavix 75 mg a day. 10. Hydrochlorothiazide 25 mg every 3 hours as needed. 11. Atrovent 0.5 mg inhaled every 6 hours as needed. ALLERGIES TO MEDICATIONS: BEE-VENOM. FAMILY HISTORY: Her mother at the age of 62, unknown cause. Father had a history of lung cancer. SOCIAL HISTORY: She, again, has a history of smoking. She has been smoking 2 cigarettes a day. Her last cigarette was on Thursday. She rarely drinks alcohol now. Her surrogate decision maker is her son-in-law. REVIEW OF SYSTEMS: There is no documented fever. She has lost a pound over the last 5 days. She denies having any double vision. There is no ear discharge. Denied having any rhinorrhea. There is no sore throat. There is no thyroid enlargement. She is denying having any chest pain. There was no orthopnea. There is dyspnea on exertion. There was no abdominal pain. There was no nausea. There is no vomiting. There is no dysuria, no frequency. There was no seizure. No loss of consciousness. No pruritus and no skin ulcerations. Review of 14 systems completed, all others were negative. PHYSICAL EXAMINATION GENERAL: At this time, Ms. Jesus Frias is a 78-year-old female patient; she appears older than stated age. She appears to be chronically ill appearing. She is in the mild amount of respiratory distress. VITAL SIGNS: Blood pressure 164/96, pulse 96, respirations were 24, O2 sat 99% , temperature 97.6. HEENT: Head is atraumatic and normocephalic. Eyes: EOMs are intact. Sclerae anicteric and not pale. Throat: Oral mucosa appears to be moist. No oropharyngeal erythema. NECK: Supple. LUNGS: Diminished in the bases. She did have some wheezing noted on the left lower lobe. She had equal diaphragmatic expansion. HEART: Sounds S1, S2. She had a regular rate and rhythm. No murmurs, rubs, or gallops. ABDOMEN: Soft, it was flat, nontender. Bowel sounds were present. EXTREMITIES: Pulses were 2+ throughout. She had no peripheral edema. NEUROLOGICAL: The patient is awake. She is alert. She is oriented x3. Tongue midline. Rn Chemical Dependency were equal. No gross focal deficits. SKIN: Intact. DIAGNOSTIC STUDIES/LABORATORY DATA: Today revealing a WBC of 5.4, RBC of 4.17 , hemoglobin of 11.4, hematocrit of 350, and platelet count of 366. INR was 0.95. Sodium was 136, potassium was 3.6, chloride of 98, Bicarb 32, BUN 13, creatinine of 0.65, glucose of 98, lactate 0.8, calcium 9.8. Total bili 0.3, AST 20, ALT 13, alk phos 59. Troponin 0.01. CRP is less than 1. BNP was 55, albumin was 3.8. The patient did have a chest x-ray obtained today which revealed mild air space consolidation at the left lung base may represent resolving air space consolidation compared with 05/10/18 or recurrent pneumonia. EKG is showing a normal sinus rhythm, rate of 93. No ST elevations or T-wave inversions are noted. It was reviewed to the previous EKG. It does appear to be similar. Old medical records were reviewed. ASSESSMENT AND PLAN: Ms. Jesus Frias is a 78-year-old female patient coming into the ED today with complaints of not feeling well, cough, and now progressive worsening shortness of breath over the last 24 hours. She will be admitted under inpatient status for: 1. Chronic obstructive pulmonary disease exacerbation. I suspect this is a culprit of her difficulty breathing, in addition that she may have recurrent pneumonia. I would go ahead and put her on Levaquin. I am going to go ahead and put her on inhaled steroids, also standing prednisone in addition to inhaled nebulizers every 4 hours with p.r.n. nebs. We will check legionella antigen, Strep pneumo antigen, and sputum culture is possible. I am sending off blood cultures. 2. Hypertension. Her blood pressures are actually down here are not very well controlled. I have ordered p.r.n. hydralazine. We may need consider adding Norvasc. Her last blood pressure was in the 180s systolic. 3. Hyperlipidemia. Continue meds as prescribed. 4. History of peripheral vascular disease. She is on atorvastatin and Plavix. We will continue these medications. 4. Degenerative disk disease. Continue with supportive care and p.r.n. pain management. 5. DVT prophylaxis. She will be placed on heparin subcu. 6. Code status. She wishes to be a DNR. 7. Fluids, electrolytes, nutrition. She can have a regular diet. TIME SPENT: On the admission was 60 minutes; greater than half the time was spent [id number] with the patient obtaining my history and physical, other half the time was spent going over the plan of care with the patient and implementing plan of care. I did discuss the plan of care with my attending, Dr. Rubio; he is in agreement. PAXTON HUTCHINSON, W[employer]ER [id number]/CPS #: [id number] [facility]
[2018-06-03] MEDS ORDERED: Nicotine Inhaler* 10 MG AMP INH PRN (22:50)
[2018-06-03] MEDS ORDERED: Mouth Piece, Nicotine* 1 EACH CARTRIDGE INH ONE (22:50)
[2018-06-04] MEDS: Heparin VIAL(*) 5000 UNITS/ML VIAL (FIVE THOUSAND) SUBCUT SCH ×3 (05:31→22:18)
[2018-06-04 06:46] LABS: ABS Basophils 0 10^3/ul (0-0.2); ABS Eosinophils 0 10^3/ul (0-0.6); ABS Lymphocytes 0.5 10^3/ul (1.0-4.8); ABS Monocytes 0 10^3/ul (0-0.8); ABS Neutrophils 3.4 10^3/ul (1.5-7.7); ABS Nucleated RBC 0 10^3/ul; Eosinophil % 0.1 % (0-6); Hematocrit 35 % (35-47); Hemoglobin 11.3 g/dl (12.0-16.0); Lymphocyte % 11.9 % (25-47); Mean Corpuscular HGB Conc 33 g/dl (31-36); Mean Corpuscular Hemoglobin 27 pg (27-31); Mean Corpuscular Volume 83 fL (80-97); Mean Platelet Volume 6.9 um3 (7.4-10.4); Nucleated Red Blood Cells % 0.1; Platelet Count 387 10^3/ul (150-450); Red Blood Count 4.16 10^6/ul (4.00-5.40); Red Cell Distribution Width 17 % (10.5-15); White Blood Count 3.9 10^3/ul (3.5-10.8)
[2018-06-04 06:53] LABS: INR 0.98 (0.77-1.02)
[2018-06-04 07:03] LABS: EGFR Non-African American 85.3 (>60)
[2018-06-04] MEDS: Mometasone/Formoter 200/5 MDI INH SCH ×2 (07:21→20:16)
[2018-06-04] MEDS: Albuterol/Ipratropium NEB.SOL* Albuterol 2.5 MG/Ipratropium 0.5 MG 3 ML INH SCH ×3 (07:22→20:16)
[2018-06-04] MEDS ORDERED: hydrOXYzine HCL TAB* 25 MG ONE (08:09)
[2018-06-04] MEDS: Hydrochlorothiazide TAB* 25 MG PO SCH (08:11)
[2018-06-04] MEDS: hydrOXYzine HCL TAB* 25 MG PO PRN ×2 (08:11→14:26)
[2018-06-04] MEDS: Clopidogrel TAB* 75 MG PO SCH (08:11)
[2018-06-04] MEDS: PARoxetine HCL TAB* 20 MG PO SCH (08:11)
[2018-06-04] MEDS: cefTRIAXone(*) 1 GM in NS 0.9% 50 ML* 50 ML IVPB SCH (09:03)
[2018-06-04] MEDS: Azithromycin IV(*) 500 MG in NS 0.9% 250 ML* 250 ML IVPB SCH (09:53)
[2018-06-04] MEDS: methylPREDNISolone SOD 40 MG* 1 ML VIAL IV SCH ×2 (12:10→22:55)
--- NOTE | 2018-06-04 12:56 | PN ---
Subjective Date of Service: 06/04/18 Interval History: HOSPITALIST PROGRESS NOTE Patient seen and examined at bedside. Care reviewed and d/w Lorie Neal RN. She feels a little better today, but still has significant dyspnea, especially with exertion. Denies chest pain or palpitations. Family History: Unchanged from Admission Social History: Unchanged from Admission Past Medical History: Unchanged from Admission Objective Active Medications: Acetaminophen (Tylenol Tab*) 650 mg PO Q4H PRN PRN Reason: FEVER/PAIN Last Admin: 06/04/18 09:53 Dose: 650 mg Albuterol (Ventolin 2.5 Mg/3 Ml Neb.Paula*) 2.5 mg INH Q2H PRN PRN Reason: SOB/WHEEZING Albuterol/Ipratropium (Duoneb (Albuterol 2.5 Mg/Ipratropium 0.5 Mg)) 1 neb INH [id number] AWAKE [facility] Last Admin: 06/04/18 12:48 Dose: 1 neb Atorvastatin Calcium (Lipitor*) 80 mg PO QPM [facility] Clopidogrel Bisulfate (Plavix Tab*) 75 mg PO DAILY [facility] Last Admin: 06/04/18 08:11 Dose: 75 mg Heparin Sodium (Porcine) (Heparin Vial(*)) 5,000 units SUBCUT Q8HR [facility] Last Admin: 06/04/18 12:10 Dose: 5,000 units Hydralazine HCl (Apresoline Iv*) 5 mg IV SLOW PU Q6H PRN PRN Reason: BLOOD PRESSURE Last Admin: 06/04/18 12:10 Dose: 5 mg Hydrochlorothiazide (Hydrodiuril Tab*) 25 mg PO DAILY [facility] Last Admin: 06/04/18 08:11 Dose: 25 mg Hydroxyzine HCl (Atarax Tab*) 25 mg PO Q6H PRN PRN Reason: ANXIETY Last Admin: 06/04/18 08:11 Dose: 25 mg Ceftriaxone Sodium 1 gm/ (Sodium Chloride) 50 mls @ 200 mls/hr IVPB Q24H [facility] Last Admin: 06/04/18 09:03 Dose: 200 mls/hr Azithromycin 500 mg/ Sodium (Chloride) 250 mls @ 250 mls/hr IVPB Q24H [facility] Last Admin: 06/04/18 09:53 Dose: 250 mls/hr Lisinopril (Prinivil Tab*) 10 mg PO QPM [facility] Methylprednisolone Sodium Succinate (Solu-Medrol 40 Mg) 40 mg IV Q12H [facility] Last Admin: 06/04/18 12:10 Dose: 40 mg Mometasone Furoate/Formoterol Fumar (Dulera 200/5 Mdi*) 2 puff INH BID [facility] Last Admin: 06/04/18 07:21 Dose: 2 puff Nicotine (Nicotine Inhaler*) 10 mg INH Q2H PRN PRN Reason: CRAVINGS Paroxetine HCl (Paxil Tab*) 20 mg PO DAILY [facility] Last Admin: 06/04/18 08:11 Dose: Not Given Trazodone HCl (Desyrel Tab*) 50 mg PO BEDTIME PRN PRN Reason: SLEEP Vital Signs - 8 hr 06/04/18 06/04/18 06/04/18 07:30 07:42 08:00 Temperature 97.6 F Pulse Rate 97 Respiratory 32 24 Rate Blood Pressure (mmHg) O2 Sat by Pulse 92 97 Oximetry 06/04/18 06/04/18 06/04/18 08:54 09:18 12:03 Temperature 98.0 F 97.4 F Pulse Rate 93 89 Respiratory 24 36 Rate Blood Pressure 164/90 (mmHg) O2 Sat by Pulse 94 99 Oximetry 06/04/18 06/04/18 12:16 12:49 Temperature Pulse Rate 116 Respiratory 20 Rate Blood Pressure 190/90 (mmHg) O2 Sat by Pulse 90 Oximetry Oxygen Devices in Use Now: Nasal Cannula - 2 liters Appearance: Elderly frail lady sitting up in bed in [facility]. Eyes: No Scleral Icterus Ears/Nose/Mouth/Throat: Mucous Membranes Moist Neck: Trachea Midline Respiratory: Symmetrical Chest Expansion and Respiratory Effort, - - BS+ bilaterally diminished with scattered rhonchi Cardiovascular: RRR - Normal S1 and S2 Abdominal: NL Sounds; No Tenderness; No Distention Extremities: No Edema Neurological: Alert and Oriented x 3, NL Muscle Strength and Tone Result Diagrams: 06/04/18 06:21 06/04/18 06:21 Assess/Plan/Problems-Billing Assessment: Mrs Lee is a 78yo F with PMH of COPD on home O2, HTN, HLD, PVD, DJD, GI bleed , who presented to ED with c/o dyspnea, found to have COPD exacerbation and pneumonia. - Patient Problems (1) Pneumonia Comment: - CxR showed left base consolidation. - Ceftriaxone and Zithromax. - Awaiting Legionella and Pneumo Ags. (2) COPD exacerbation Comment: - Secondary to pneumonia. - Continue steroids, bronchodilators. - Supplemental O2 at 2 liters (same rate as at home). (3) PVD (peripheral vascular disease) Comment: - Continue Atorvastatin and Plavix. (4) Tobacco abuse Comment: - Nicotine inhaler PRN. (5) HLD (hyperlipidemia) Comment: - Continue Atorvastatin. (6) HTN (hypertension) Comment: - Uncontrolled. - Continue HCTZ, Lisinopril, and add Amlodipine. (7) DVT prophylaxis Comment: - SQ heparin. (8) DNR (do not resuscitate) Status and Disposition: Inpatient.
[2018-06-04] MEDS: amLODIPine TAB* 5 MG PO SCH (14:26)
[2018-06-04] MEDS ORDERED: Nicotine GUM* 2 MG PO PRN (17:27)
[2018-06-04] MEDS: Lisinopril TAB* 10 MG PO SCH (17:45)
[2018-06-04] MEDS: Atorvastatin* 80 MG TAB PO SCH (17:45)
[2018-06-05] MEDS: Albuterol/Ipratropium NEB.SOL* Albuterol 2.5 MG/Ipratropium 0.5 MG 3 ML INH SCH ×4 (01:20→19:55)
[2018-06-05] MEDS: Heparin VIAL(*) 5000 UNITS/ML VIAL (FIVE THOUSAND) SUBCUT SCH ×3 (06:24→21:08)
[2018-06-05] MEDS: Mometasone/Formoter 200/5 MDI INH SCH ×2 (07:33→20:45)
[2018-06-05] MEDS: Hydrochlorothiazide TAB* 25 MG PO SCH (08:32)
[2018-06-05] MEDS: amLODIPine TAB* 5 MG PO SCH (08:33)
[2018-06-05] MEDS: Clopidogrel TAB* 75 MG PO SCH (08:33)
[2018-06-05] MEDS: PARoxetine HCL TAB* 20 MG PO SCH (08:33)
[2018-06-05] MEDS: cefTRIAXone(*) 1 GM in NS 0.9% 50 ML* 50 ML IVPB SCH (08:34)
[2018-06-05] MEDS: Azithromycin IV(*) 500 MG in NS 0.9% 250 ML* 250 ML IVPB SCH (09:50)
[2018-06-05] MEDS: methylPREDNISolone SOD 40 MG* 1 ML VIAL IV SCH ×2 (11:10→23:48)
[2018-06-05] MEDS: Nicotine Lozenge* 4 MG LOZENGE MT PRN (13:49)
--- NOTE | 2018-06-05 14:00 | RAD ---
INDICATION: Recurrent left lower lobe pneumonia evaluate for malignancy. COMPARISON: Comparison is made with a prior CT of the chest from June 25, 2008 and a prior chest x-ray study from June 03, 2018. TECHNIQUE: A CT scan of the chest was performed without intravenous contrast. Contiguous axial sections were obtained from the lung apices through the lung bases. Images were reconstructed in the coronal and sagittal planes. FINDINGS: The lungs are hyperinflated. There is moderate centrilobular emphysematous change present. There is right middle lobe collapse. No mass is seen. There are patchy infiltrates in the left lower lobe at the left lung base and also in the posterior aspect of the right upper lobe. No pleural effusion is noted. There is a slightly prominent 1.0 cm transverse diameter precarinal lymph node which appears unchanged significantly from the prior CT study. No other enlarged mediastinal or hilar lymph nodes are seen. The heart is within normal limits in size. There are prominent coronary artery calcifications. No pericardial effusion is present. The thoracic aorta is normal in caliber and there is moderate calcific plaque present. No acute findings are seen on the visualized portion of the upper abdomen. No significant focal osseous abnormality is seen. IMPRESSION: 1. MODERATE CENTRILOBULAR EMPHYSEMATOUS CHANGE. 2. RIGHT MIDDLE LOBE COLLAPSE. 3. SMALL RIGHT UPPER AND LEFT LOWER LOBE INFILTRATES. 4. DENSE CORONARY ARTERY CALCIFICATIONS.
--- NOTE | 2018-06-05 14:52 | PN ---
Subjective Date of Service: 06/05/18 Interval History: HOSPITALIST PROGRESS NOTE Patient seen and examined at bedside. Care reviewed and d/w Thania Martinez RN. She feels a little better today. Did not sleep well last night, requests Trazodone. Still has significant dyspnea on exertion. Family History: Unchanged from Admission Social History: Unchanged from Admission Past Medical History: Unchanged from Admission Objective Active Medications: Acetaminophen (Tylenol Tab*) 650 mg PO Q4H PRN PRN Reason: FEVER/PAIN Last Admin: 06/04/18 09:53 Dose: 650 mg Albuterol (Ventolin 2.5 Mg/3 Ml Neb.Paula*) 2.5 mg INH Q2H PRN PRN Reason: SOB/WHEEZING Albuterol/Ipratropium (Duoneb (Albuterol 2.5 Mg/Ipratropium 0.5 Mg)) 1 neb INH [id number] AWAKE [facility] Last Admin: 06/05/18 13:38 Dose: 1 neb Amlodipine Besylate (Norvasc Tab*) 5 mg PO DAILY [facility] Last Admin: 06/05/18 08:33 Dose: 5 mg Atorvastatin Calcium (Lipitor*) 80 mg PO QPM [facility] Last Admin: 06/04/18 17:45 Dose: 80 mg Clopidogrel Bisulfate (Plavix Tab*) 75 mg PO DAILY [facility] Last Admin: 06/05/18 08:33 Dose: 75 mg Heparin Sodium (Porcine) (Heparin Vial(*)) 5,000 units SUBCUT Q8HR [facility] Last Admin: 06/05/18 13:47 Dose: 5,000 units Hydralazine HCl (Apresoline Iv*) 5 mg IV SLOW PU Q6H PRN PRN Reason: BLOOD PRESSURE Last Admin: 06/04/18 12:10 Dose: 5 mg Hydrochlorothiazide (Hydrodiuril Tab*) 25 mg PO DAILY [facility] Last Admin: 06/05/18 08:32 Dose: 25 mg Hydroxyzine HCl (Atarax Tab*) 25 mg PO Q6H PRN PRN Reason: ANXIETY Last Admin: 06/04/18 14:26 Dose: 25 mg Ceftriaxone Sodium 1 gm/ (Sodium Chloride) 50 mls @ 200 mls/hr IVPB Q24H [facility] Last Admin: 06/05/18 08:34 Dose: 200 mls/hr Azithromycin 500 mg/ Sodium (Chloride) 250 mls @ 250 mls/hr IVPB Q24H [facility] Last Admin: 06/05/18 09:50 Dose: 250 mls/hr Lisinopril (Prinivil Tab*) 10 mg PO QPM [facility] Last Admin: 06/04/18 17:45 Dose: 10 mg Methylprednisolone Sodium Succinate (Solu-Medrol 40 Mg) 40 mg IV Q12H [facility] Last Admin: 06/05/18 11:10 Dose: 40 mg Mometasone Furoate/Formoterol Fumar (Dulera 200/5 Mdi*) 2 puff INH BID [facility] Last Admin: 06/05/18 07:33 Dose: 2 puff Nicotine (Nicotine Inhaler*) 10 mg INH Q2H PRN PRN Reason: CRAVINGS Nicotine Polacrilex (Nicotine Lozenge*) 4 mg MT Q2H PRN PRN Reason: CRAVINGS Last Admin: 06/05/18 13:49 Dose: 4 mg Paroxetine HCl (Paxil Tab*) 20 mg PO DAILY [facility] Last Admin: 06/05/18 08:33 Dose: 20 mg Trazodone HCl (Desyrel Tab*) 50 mg PO BEDTIME PRN PRN Reason: SLEEP Vital Signs - 8 hr 06/05/18 06/05/18 06/05/18 07:32 07:35 08:57 Temperature 98.1 F Pulse Rate 85 89 Respiratory 16 16 18 Rate Blood Pressure 125/72 (mmHg) O2 Sat by Pulse 97 97 Oximetry 06/05/18 06/05/18 10:58 13:39 Temperature 97.5 F Pulse Rate 98 85 Respiratory 40 16 Rate Blood Pressure 123/87 (mmHg) O2 Sat by Pulse 96 97 Oximetry Oxygen Devices in Use Now: Nasal Cannula - 3 liters Appearance: Pleasant lady sitting up in bed in NAD. Eyes: No Scleral Icterus Ears/Nose/Mouth/Throat: Mucous Membranes Moist Neck: Trachea Midline Respiratory: Symmetrical Chest Expansion and Respiratory Effort, - - BS+ bilaterally diminished with no added sounds Cardiovascular: RRR - Normal S1 and S2 Neurological: Alert and Oriented x 3, NL Muscle Strength and Tone Result Diagrams: 06/04/18 06:21 06/04/18 06:21 Assess/Plan/Problems-Billing Assessment: Mrs Lee is a 78yo F with PMH of COPD on home O2, HTN, HLD, PVD, DJD, GI bleed , who presented to ED with c/o dyspnea, found to have COPD exacerbation and pneumonia. - Patient Problems (1) Pneumonia Comment: - CxR showed left base consolidation. - Continue Ceftriaxone and Zithromax. - Awaiting Legionella and Pneumo Ags. - CT chest shows RML collapse, small RUL and LLL infiltrates - Pulm consult requested. (2) COPD exacerbation Comment: - Secondary to pneumonia. - Continue steroids, bronchodilators. - Supplemental O2 at 3 liters (2 liters at home). (3) PVD (peripheral vascular disease) Comment: - Continue Atorvastatin and Plavix. (4) Tobacco abuse Comment: - Nicotine inhaler PRN. (5) HLD (hyperlipidemia) Comment: - Continue Atorvastatin. (6) HTN (hypertension) Comment: - Better controlled. - Continue HCTZ, Lisinopril, and Amlodipine. (7) DVT prophylaxis Comment: - SQ heparin. (8) DNR (do not resuscitate) Status and Disposition: Inpatient.
--- NOTE | 2018-06-05 15:45 | PN ---
Hospitalist Progress Note Date of Service: 06/05/18 HOSPITALIST ADDENDUM Called by RN because patient's saturation is now in the 80s, despite titrating supplemental O2 up to [address] chest was reviewed and d/w Pulm - mild RML collapse, maybe mucous plug. Will transfer to ICU for BiPAP. D/w Dr Mullen. Will pursue CTA chest to r/o PE as possibility for cause of sudden decompensation.
[2018-06-05] MEDS ORDERED: Morphine VIAL* 10 MG/ML 1 ML VIAL ONE (16:12)
[2018-06-05] MEDS ORDERED: Morphine VIAL* 10 MG/ML 1 ML VIAL IV ONE (16:20)
--- NOTE | 2018-06-05 17:04 | CONS ---
Amended report to enter date of consultation. PULMONARY/CRITICAL CARE CONSULTATION: DATE OF CONSULT: 06/05/2018. CONSULTATION REQUESTED BY: Dr. Vargas. REASON FOR CONSULT: Abnormal CT chest and respiratory failure. HISTORY OF PRESENT ILLNESS: The patient is a 78-year-old female, former smoker , with history of COPD, on 2 L home O2 at baseline, with significant smoking history, quit few days ago. The patient initially presented to the hospital for evaluation of worsening cough and shortness of breath on 06/03/18. The patient has been on O2 supplementation at home at 2 L per minute, she had increased FiO2 requirements to 3 L. She was admitted for acute COPD exacerbation. The patient has been having shortness of breath, felt slightly better this morning. The patient reported having progressively worsening dyspnea on exertion and decreased appetite over the past few months. The patient also reported cold sweats 1 day prior. The patient felt like breathing has worsened the day prior to the presentation and decided to come into the emergency room for further evaluation. She reported that she could barely make up to the bathroom without getting winded. She has denied chest pain, abdominal pain, nausea, vomiting, and diarrhea. Denies sick contacts or recent travel. She was admitted 2 months ago for acute COPD exacerbation. Further evaluation in the emergency room included chest x-ray. I have personally reviewed chest x-ray images. The patient noted to have airspace opacity in the left lung base with evidence of hyperinflation. CT of the chest was ordered for further evaluation given recurrent pneumonia on the left side. I have personally reviewed images of the CT chest. The patient with evidence of partial collapse of right middle lobe. The patient noted to have density arising from the trachea, unclear if it is indicative of inspissated mucus or any endobronchial process. No obvious endobronchial lesions were seen otherwise in the right or left bronchi. The patient noted to have patchy airspace opacities in right upper lobe, left lower lobe and left lung base. She also was noted to have 1 cm enlarged precarinal lymph node, which was seen on prior CT with no interval increase in size. No pleural effusions were noted. She was noted to have moderate calcific plaque in coronary arteries along with moderate centrilobular emphysematous changes. The patient continued to have worsening shortness of breath while on the floor, had O2 desaturations to 86% while on 3 L during checking of her vitals, has required increasing FiO2 to about 10 L. She is currently being transferred to intensive care unit for close monitoring and further evaluation. The patient is currently being treated with Rocephin and Zithromax along with bronchodilators and Solu- Medrol at 40 q.12. PAST MEDICAL HISTORY: 1. COPD, on 2 L. 2. Tobacco abuse, quit smoking 4 days ago. 3. Hypertension. 4. Dyslipidemia. 5. Peripheral vascular disease. 6. Degenerative disk disease. 7. History of GI bleed. PAST SURGICAL HISTORY: 1. Tonsillectomy. 2. Cervical diskectomy and fusion. 3. Lumbar laminectomy. 4. Appendectomy. 5. Hysterectomy. 6. Right iliac artery stenting. 7. Left carotid endarterectomy. MEDICATIONS AT HOME: 1. Lisinopril. 2. Paxil. 3. B12. 4. Dulera. 5. Lipitor. 6. ProAir. 7. Trazodone. 8. Hydrochlorothiazide. 9. Plavix. 10. Atrovent. ALLERGIES TO MEDICATIONS: None, allergic to BEE VENOM. FAMILY HISTORY: Mother at 62 with unknown cause. History of lung cancer in father. SOCIAL HISTORY: Significant smoking history, has cut down to 2 cigarettes a day recently, quit this past Thursday. Occasional alcohol intake. Surrogate decision maker is her son-in-law. REVIEW OF SYSTEMS: No fevers, visual changes, ear discharge, rhinorrhea, sore throat, thyroid enlargement. The patient denies chest pain, orthopnea, abdominal pain, nausea, vomiting, dysuria. No history of headaches, loss of consciousness. Denied pruritus or skin ulcerations. Reports 1 pound weight loss in the past 5 days and decreased appetite. PHYSICAL EXAM: The patient is in bed, in no apparent distress. Vital Signs: Temperature 97.7, pulse 97 beats per minute, respiratory rate 32 per minute, O2 sat 86% on 3 L, blood pressure 140/67. HEENT: Pupils equal, reactive to light. Mucous membranes moist. Lungs: Diminished air entry bilaterally, significantly decreased in the right lung anteriorly. Cardiovascular: S1, S2 present, regular. Abdomen: Soft, nontender, nondistended. Bowel sounds present. Extremities: Normal range of motion. No cyanosis or edema. Neurologic: Alert, awake, oriented x3. No focal deficits. Skin: No rash or bruise. DIAGNOSTIC STUDIES/LAB DATA: WBC count 3.9, hemoglobin 11.3, hematocrit 35, platelet count 387. Sodium 133, potassium 3.7, chloride 95, bicarb 30, BUN 13, creatinine 0.67, glucose 172. BNP 55. Chest x-ray and CT of the chest as described above in HPI. IMPRESSION AND RECOMMENDATIONS: 78-year-old female with significant smoking history with chronic obstructive pulmonary disease, on home O2, recently admitted for pneumonia and acute chronic obstructive pulmonary disease exacerbation, readmitted with worsening shortness of breath and cough, being treated for pneumonia and acute chronic obstructive pulmonary disease exacerbation, significant respiratory distress and desaturation while on the floor with recent CT evidence of right middle lobe collapse and patchy airspace opacities bilaterally in the right upper lobe, left lung base. 1. Acute chronic obstructive pulmonary disease exacerbation. 2. Pneumonia, likely community-acquired pneumonia. 3. Acute on chronic hypoxemic respiratory failure. 4. Hyponatremia. 5. Normocytic anemia. 6. Right middle lobe collapse, mucus plug versus endobronchial lesion. The patient will be placed on noninvasive positive pressure ventilation given respiratory distress. The patient is DNR. She is not stable at this time given hypoxemia for bronchoscopy. Will arrange for bronchoscopy when she is more stable for airway inspection and to rule out endobronchial lesion. Will order MetaNeb for mobilization of secretions. Continue with current management for chronic obstructive pulmonary disease exacerbation. Agree with current antibiotics, do not see any need to broaden antibiotic coverage at this time. The patient has significant emphysema on CT chest. No prior PFTs were available for evaluation of chronic obstructive pulmonary disease severity. She has overnight oximetry performed in 2007 that was suggestive of significant hypoxemia and she has been on O2 supplementation at 2 L per minute. Given chronic hypoxemia, also suspect pulmonary hypertension. The patient has significant coronary calcifications; however, troponin was within normal limits on admission. EKG on admission did not reveal any acute ST -T wave changes. BNP is within normal limits. Would continue with nebulizer treatments. Will monitor closely in the ICU. Thank you for allowing me to participate in the care of your patient. Will follow up with you. [id number]/[facility] #: [id number] CHRISTAL
[2018-06-05] MEDS: Lisinopril TAB* 10 MG PO SCH (21:07)
[2018-06-05] MEDS: traZODone TAB* 50 MG TAB PO PRN (21:07)
[2018-06-05] MEDS: Atorvastatin* 80 MG TAB PO SCH (21:07)
[2018-06-06] MEDS: Albuterol/Ipratropium NEB.SOL* Albuterol 2.5 MG/Ipratropium 0.5 MG 3 ML INH SCH ×4 (01:22→20:31)
[2018-06-06] MEDS: Albuterol 2.5 MG/3 ML NEB.SOL* (0.083%) INH PRN ×2 (05:19→11:24)
[2018-06-06] MEDS: Heparin VIAL(*) 5000 UNITS/ML VIAL (FIVE THOUSAND) SUBCUT SCH (06:15)
[2018-06-06] MEDS: Mometasone/Formoter 200/5 MDI INH SCH ×2 (07:30→20:31)
--- NOTE | 2018-06-06 07:58 | PN ---
Subjective Date of Service: 06/06/18 Interval History: HOSPITALIST PROGRESS NOTE Patient seen and examined at bedside. She did well with BiPAP overnight, was released around 5 AM, but now dyspneic again, with RR 40, despite 15 liters of O2. Now back on BiPAP, feeling better. Family History: Unchanged from Admission Social History: Unchanged from Admission Past Medical History: Unchanged from Admission Objective Active Medications: Acetaminophen (Tylenol Tab*) 650 mg PO Q4H PRN PRN Reason: FEVER/PAIN Last Admin: 06/04/18 09:53 Dose: 650 mg Albuterol (Ventolin 2.5 Mg/3 Ml Neb.Paula*) 2.5 mg INH Q2H PRN PRN Reason: SOB/WHEEZING Last Admin: 06/06/18 05:19 Dose: 2.5 mg Albuterol/Ipratropium (Duoneb (Albuterol 2.5 Mg/Ipratropium 0.5 Mg)) 1 neb INH [id number] AWAKE [facility] Last Admin: 06/06/18 07:26 Dose: 1 neb Atorvastatin Calcium (Lipitor*) 80 mg PO QPM ROJAS Last Admin: 06/05/18 21:07 Dose: 80 mg Clopidogrel Bisulfate (Plavix Tab*) 75 mg PO DAILY ROJAS Last Admin: 06/05/18 08:33 Dose: 75 mg Hydralazine HCl (Apresoline Iv*) 5 mg IV SLOW PU Q6H PRN PRN Reason: BLOOD PRESSURE Last Admin: 06/04/18 12:10 Dose: 5 mg Hydroxyzine HCl (Atarax Tab*) 25 mg PO Q6H PRN PRN Reason: ANXIETY Last Admin: 06/04/18 14:26 Dose: 25 mg Ceftriaxone Sodium 1 gm/ (Sodium Chloride) 50 mls @ 200 mls/hr IVPB Q24H ROJAS Last Admin: 06/05/18 08:34 Dose: 200 mls/hr Azithromycin 500 mg/ Sodium (Chloride) 250 mls @ 250 mls/hr IVPB Q24H ROJAS Last Admin: 06/05/18 09:50 Dose: 250 mls/hr Methylprednisolone Sodium Succinate (Solu-Medrol 40 Mg) 40 mg IV Q12H ROJAS Last Admin: 06/05/18 23:48 Dose: 40 mg Mometasone Furoate/Formoterol Fumar (Dulera 200/5 Mdi*) 2 puff INH BID ROJAS Last Admin: 06/06/18 07:30 Dose: Not Given Morphine Sulfate (Morphine Vial*) 5 mg IV Q4H PRN PRN Reason: Pain/Tachypnea RR>24 Nicotine (Nicotine Inhaler*) 10 mg INH Q2H PRN PRN Reason: CRAVINGS Nicotine Polacrilex (Nicotine Lozenge*) 4 mg MT Q2H PRN PRN Reason: CRAVINGS Last Admin: 06/05/18 13:49 Dose: 4 mg Paroxetine HCl (Paxil Tab*) 20 mg PO DAILY [facility] Last Admin: 06/05/18 08:33 Dose: 20 mg Trazodone HCl (Desyrel Tab*) 50 mg PO BEDTIME PRN PRN Reason: SLEEP Last Admin: 06/05/18 21:07 Dose: 50 mg Vital Signs - 8 hr 06/06/18 06/06/18 06/06/18 00:00 00:01 00:15 Temperature Pulse Rate 71 75 Respiratory 23 22 22 Rate Blood Pressure 84/49 (mmHg) O2 Sat by Pulse 93 91 Oximetry 06/06/18 06/06/18 06/06/18 01:00 01:10 01:13 Temperature Pulse Rate 64 65 64 Respiratory 21 21 19 Rate Blood Pressure 70/38 77/43 75/42 (mmHg) O2 Sat by Pulse 99 100 99 Oximetry 06/06/18 06/06/18 06/06/18 01:17 02:00 03:00 Temperature Pulse Rate 66 67 Respiratory 21 22 19 Rate Blood Pressure 91/48 92/50 (mmHg) O2 Sat by Pulse 100 100 Oximetry 06/06/18 06/06/18 06/06/18 03:28 04:00 05:00 Temperature 97.6 F Pulse Rate 67 86 Respiratory 24 27 Rate Blood Pressure 92/50 (mmHg) O2 Sat by Pulse 100 99 Oximetry 06/06/18 06/06/18 06/06/18 05:02 05:20 06:00 Temperature Pulse Rate 91 73 75 Respiratory 27 21 Rate Blood Pressure 98/42 102/53 (mmHg) O2 Sat by Pulse 100 97 94 Oximetry 06/06/18 07:25 Temperature Pulse Rate 76 Respiratory 32 Rate Blood Pressure (mmHg) O2 Sat by Pulse 96 Oximetry Oxygen Devices in Use Now: BiPAP Appearance: Pleasant thin lady sitting up in bed in NAD, BiPAP in place. Eyes: No Scleral Icterus Ears/Nose/Mouth/Throat: Mucous Membranes Moist Neck: Trachea Midline Respiratory: Symmetrical Chest Expansion and Respiratory Effort, - - BS+ bilaterally diminished with no added sounds Cardiovascular: RRR - Normal S1 and S2 Abdominal: NL Sounds; No Tenderness; No Distention Extremities: No Edema Neurological: Alert and Oriented x 3, NL Muscle Strength and Tone Result Diagrams: 06/04/18 06:21 06/04/18 06:21 Assess/Plan/Problems-Billing Assessment: Mrs Lee is a 78yo F with PMH of COPD on home O2, HTN, HLD, PVD, DJD, GI bleed , who presented to ED with c/o dyspnea, found to have COPD exacerbation and pneumonia. - Patient Problems (1) Acute and chronic respiratory failure with hypoxia Comment: - Secondary to COPD exacerbation, pneumonia, atelectasis, but I'm concerned her sudden decompensation may be secondary to PE. - She's not stable for CTA chest at this time, so will start empiric treatment with Lovenox for now. - Continue BiPAP as tolerated. (2) Pneumonia Comment: - CxR showed left base consolidation. - Continue Ceftriaxone and Zithromax. - Legionella and Pneumo Ags are negative, blood cultures show no growth. - Follow sputum cultures. - CT chest shows RML collapse, small RUL and LLL infiltrates - Pulm consult appreciated. - This could be secondary to mucous plug, but with her significant h/o tobacco abuse, I'm concerned with malignancy. Will probably need bronch when more stable. (3) COPD exacerbation Comment: - Secondary to pneumonia. - Continue steroids, bronchodilators. (4) PVD (peripheral vascular disease) Comment: - Continue Atorvastatin and Plavix. (5) Tobacco abuse Comment: - Nicotine inhaler PRN. (6) HLD (hyperlipidemia) Comment: - Continue Atorvastatin. (7) HTN (hypertension) Comment: - BP on the lower side now she's on BiPAP. - Will d/c HCTZ, Lisinopril, and Amlodipine for now. (8) DVT prophylaxis Comment: - Lovenox. (9) DNR (do not resuscitate) Status and Disposition: Inpatient.
[2018-06-06] MEDS: Enoxaparin(*) 60 MG/0.6 ML SYR SUBCUT SCH ×2 (08:36→19:43)
[2018-06-06] MEDS: Morphine VIAL* 10 MG/ML 1 ML VIAL IV PRN ×3 (08:36→19:43)
[2018-06-06] MEDS: cefTRIAXone(*) 1 GM in NS 0.9% 50 ML* 50 ML IVPB SCH (08:37)
[2018-06-06] MEDS: Clopidogrel TAB* 75 MG PO SCH (08:37)
[2018-06-06] MEDS ORDERED: amLODIPine TAB* 5 MG PO SCH ×2 (09:00)
[2018-06-06] MEDS: PARoxetine HCL TAB* 20 MG PO SCH (10:18)
[2018-06-06 10:28] LABS: ABS Basophils 0 10^3/ul (0-0.2); ABS Eosinophils 0 10^3/ul (0-0.6); ABS Lymphocytes 0.9 10^3/ul (1.0-4.8); ABS Monocytes 0.9 10^3/ul (0-0.8); ABS Neutrophils 8.2 10^3/ul (1.5-7.7); ABS Nucleated RBC 0 10^3/ul; Eosinophil % 0 % (0-6); Hematocrit 29 % (35-47); Hemoglobin 9.6 g/dl (12.0-16.0); Lymphocyte % 8.7 % (25-47); Mean Corpuscular HGB Conc 33 g/dl (31-36); Mean Corpuscular Hemoglobin 28 pg (27-31); Mean Corpuscular Volume 84 fL (80-97); Mean Platelet Volume 6.9 um3 (7.4-10.4); Nucleated Red Blood Cells % 0; Platelet Count 345 10^3/ul (150-450); Red Blood Count 3.47 10^6/ul (4.00-5.40); Red Cell Distribution Width 18 % (10.5-15)
[2018-06-06] MEDS: methylPREDNISolone SOD 40 MG* 1 ML VIAL IV SCH ×2 (10:37→22:09)
[2018-06-06] MEDS: Azithromycin IV(*) 500 MG in NS 0.9% 250 ML* 250 ML IVPB SCH (10:37)
[2018-06-06 10:48] LABS: EGFR Non-African American 43.6 (>60)
[2018-06-06] MEDS ORDERED: Potassium Chlor TAB* 20 MEQ TAB.ER PO ONE (11:23)
[2018-06-06] MEDS ORDERED: NS 0.9% 500 ML* 500 ML IV ONE (13:22)
--- NOTE | 2018-06-06 13:36 | PN ---
Progress Note - Progress Note Date of Service: 06/06/18 - Pulm/CC note Note: Pt seen and examined at bedside. Interim events noted. Has been needing BiPAP rescue. reports feeling better, appetite is back, able to tolerate lunch. Has been on 15L, decreased to 10L, felt dizzy while sitting at edge of bed, also was hypotensive, UO low, received fluid bolus with improvement in BP, dizziness resolved Active Medications Generic Name Dose Route Start Last Admin Trade Name Freq PRN Reason Stop Dose Admin Acetaminophen 650 mg 06/03/18 20:28 06/04/18 09:53 Tylenol Tab* PO 650 mg Q4H PRN Administration FEVER/PAIN Albuterol 2.5 mg 06/03/18 20:28 06/06/18 11:24 Ventolin 2.5 Mg/3 Ml Neb.Paula* INH 2.5 mg Q2H PRN Administration SOB/WHEEZING Albuterol/Ipratropium 1 neb 06/04/18 07:00 06/06/18 07:26 Duoneb (Albuterol 2.5 Mg/Ipratropium 0.5 Mg) INH 1 neb [id number] AWAKE ROJAS Administration Atorvastatin Calcium 80 mg 06/04/18 18:00 06/05/18 21:07 Lipitor* PO 80 mg QPM ROJAS Administration Clopidogrel Bisulfate 75 mg 06/04/18 09:00 06/06/18 08:37 Plavix Tab* PO 75 mg DAILY ROJAS Administration Enoxaparin Sodium 50 mg 06/06/18 08:00 06/06/18 08:36 Lovenox(*) SUBCUT 50 mg Q12H ROJAS Administration Hydralazine HCl 5 mg 06/03/18 20:32 06/04/18 12:10 Apresoline Iv* IV SLOW PU 5 mg Q6H PRN Administration BLOOD PRESSURE Hydroxyzine HCl 25 mg 06/04/18 08:08 06/04/18 14:26 Atarax Tab* PO 25 mg Q6H PRN Administration ANXIETY Ceftriaxone Sodium 1 gm/ 50 mls @ 200 mls/hr 06/04/18 09:00 06/06/18 08:37 Sodium Chloride IVPB 200 mls/hr Q24H ROJAS Administration Azithromycin 500 mg/ Sodium 250 mls @ 250 mls/hr 06/04/18 09:00 06/06/18 10: 37 Chloride IVPB 250 mls/hr Q24H ROJAS Administration Lactated Ringer's 500 mls @ 100 mls/hr 06/06/18 11:21 06/06/18 12:01 Lactated Ringers 500 Ml Bag* IV 06/06/18 16:20 100 mls/hr ONCE ONE Administration Lactated Ringer's 1,000 mls @ 0 mls/hr 06/06/18 13:00 Lactated Ringers 1000 Ml Bag* IV 06/06/18 23:59 WIDE OPEN ROJAS Wide Open Sodium Chloride 500 mls @ 1,000 mls/hr 06/06/18 13:22 06/06/18 13:26 Ns 0.9% 500 Ml* IV 06/06/18 13:51 1,000 mls/hr ONCE ONE Administration Methylprednisolone Sodium Succinate 40 mg 06/04/18 11:00 06/06/18 10:37 Solu-Medrol 40 Mg IV 40 mg Q12H ROJAS Administration Mometasone Furoate/Formoterol Fumar 2 puff 06/03/18 21:00 06/06/18 07:30 Dulera 200/5 Mdi* INH Not Given BID ROJAS Morphine Sulfate 5 mg 06/06/18 07:48 06/06/18 13:12 Morphine Vial* IV 5 mg Q4H PRN Administration Pain/Tachypnea RR>24 Nicotine 10 mg 06/03/18 22:50 Nicotine Inhaler* INH Q2H PRN CRAVINGS Nicotine Polacrilex 4 mg 06/04/18 17:59 06/05/18 13:49 Nicotine Lozenge* MT 4 mg Q2H PRN Administration CRAVINGS Paroxetine HCl 20 mg 06/04/18 09:00 06/06/18 10:18 Paxil Tab* PO 20 mg DAILY ROJAS Administration Trazodone HCl 50 mg 06/03/18 20:31 06/05/18 21:07 Desyrel Tab* PO 50 mg BEDTIME PRN Administration SLEEP Vital Signs Temp Pulse Resp BP Pulse Ox 98.8 F 78 22 89/51 97 06/06/18 12:16 06/06/18 12:00 06/06/18 13:12 06/06/18 12:00 06/06/18 11:45 O/E: Pt in NAD HEENT: PERRLA, no JVD Lungs: Diminished air entry, wheeze + CVS: S2, S2+, regular Abd: Soft, BS+ Ext: No edema Skin: No rash or bruise Neuro: No focal defecits Laboratory Results - last 24 hr 06/06/18 06/06/18 06/06/18 10:15 10:15 10:15 WBC 10.0 RBC 3.47 L Hgb 9.6 L Hct 29 L MCV 84 MCH 28 MCHC 33 RDW 18 H Plt Count 345 MPV 6.9 L Neut % (Auto) 82.1 Lymph % (Auto) 8.7 L [place] % (Auto) 8.9 H Eos % (Auto) 0 Baso % (Auto) 0.3 Absolute Neuts (auto) 8.2 H Absolute Lymphs (auto) 0.9 L Absolute Monos (auto) 0.9 H Absolute Eos (auto) 0 Absolute Basos (auto) 0 Absolute Nucleated RBC 0 Nucleated RBC % 0 Sodium 129 L Potassium 3.4 L Chloride 90 L Carbon Dioxide 32 Anion Gap 7 BUN 27 H Creatinine 1.20 H Est GFR ( Amer) 52.7 Est GFR (Non-Af Amer) 43.6 BUN/Creatinine Ratio 22.5 H Glucose 183 H Lactic Acid 3.2 H* Calcium 9.1 I/R: 78 y o f with significant smoking history, quit recently a/w worsening SOB , being treated for acute COPD exacerbation and worsening hypoxia sec to RML atlectasis, transferred to ICU for worsening oxygenation status Pt improving with NIPPV support Became hypotensive today, lactic acid also elevated, responded to fluid boluses Antihypertensive meds being held On Rocephin and Zithromax, will broaden if continues to be hypotensive c/w bronchodilators, steroids Hyponatremia likely sec to volume depletion c/w NIIPV at night and prn during daytime Less likely to be PE, on emperic Lovenox ARF sec to hypotension, will hold off on CTA for now UO improved post bolus, will monitor closely Normocytic anemia, stable Pt is DNR D/w Dr Vargas
[2018-06-06] MEDS ORDERED: Zosyn per Pharmacy* NOTE FOLLOW UP SCH (16:00)
[2018-06-06] MEDS ORDERED: Piperacillin/Tazobac ADVAN(*) 3.375 GM in NS 0.9% 100 ML* 100 ML IVPB ONE (16:00)
[2018-06-06] MEDS ORDERED: NS 0.9% 1000 ML* 1,000 ML IV SCH ×2 (16:30→18:28)
[2018-06-06] MEDS ORDERED: Vancomycin(*) 1,000 MG in NS 0.9% 250 ML* 250 ML IVPB ONE (16:30)
[2018-06-06] MEDS ORDERED: Vancomycin per Pharmacy* NOTE FOLLOW UP PRN (16:58)
[2018-06-06] MEDS ORDERED: NS 0.9% 1000 ML* 1,000 ML IV ONE (17:14)
--- NOTE | 2018-06-06 18:36 | PN ---
Hospitalist Progress Note Date of Service: 06/06/18 HOSPITALIST ADDENDUM Patient has now progressed to septic shock. Will continue IVF resuscitation, and start Levophed. LA trending up again, but urine output is still good. Will repeat LA at 20:30 and continue to monitor.
[2018-06-06] MEDS: Atorvastatin* 80 MG TAB PO SCH (18:47)
[2018-06-06] MEDS ORDERED: Norepinephrine 16MCG/ML IVPRE* 4,000 MCG/250 ML BAG IV SCH (19:00)
[2018-06-06] MEDS: ZOSYN 3.375 GM Q8H per EXTENDED INFUSION IVPB SCH ×2 (19:52)
[2018-06-06] MEDS: traZODone TAB* 50 MG TAB PO PRN (21:01)
--- NOTE | 2018-06-06 22:55 | PN ---
Sepsis Event Evaluation Date of Evaluation: 06/06/18 Time of Evaluation: 22:53 Current Stage of Sepsis: Septic Shock Vital Signs - Last 12 Hours: Vital Signs - 12 hr Temp Pulse Resp BP Pulse Ox 06/06/18 22:15 91 21 123/67 96 06/06/18 22:01 82 28 104/51 96 06/06/18 22:00 82 22 96 06/06/18 21:51 21 06/06/18 21:46 88 21 121/52 95 06/06/18 21:30 84 21 125/54 98 06/06/18 21:15 84 24 133/57 99 06/06/18 21:00 89 39 106/51 97 06/06/18 20:55 32 06/06/18 20:45 100 27 138/73 100 06/06/18 20:39 86 20 100 06/06/18 20:30 88 39 128/56 100 06/06/18 20:15 89 18 124/58 100 06/06/18 20:00 87 37 125/62 77 06/06/18 19:46 86 49 107/75 91 06/06/18 19:43 38 06/06/18 19:38 101 40 179/69 96 06/06/18 19:33 98.3 F 06/06/18 19:17 86 34 115/73 98 06/06/18 19:00 85 32 99 06/06/18 18:45 90 36 104/62 100 06/06/18 18:30 84 23 82/45 100 06/06/18 18:15 95 31 104/59 99 06/06/18 18:00 98 27 108/61 98 06/06/18 17:45 92 27 91/58 100 06/06/18 17:30 90 47 95/55 99 06/06/18 17:15 86 39 103/60 98 06/06/18 17:11 99.2 F 06/06/18 17:09 84 25 81/59 98 06/06/18 17:00 89 30 92 06/06/18 16:45 85 27 91/52 99 06/06/18 16:30 87 38 107/55 97 06/06/18 16:15 81 27 94/50 100 06/06/18 16:00 81 21 94/50 100 06/06/18 15:45 81 24 82/52 100 06/06/18 15:36 82 32 93/51 100 06/06/18 15:30 82 24 82/57 96 06/06/18 15:15 81 28 99/59 100 06/06/18 15:00 84 18 95/56 100 06/06/18 14:45 82 20 102/49 100 06/06/18 14:30 80 27 94/54 100 06/06/18 14:24 82 26 100 06/06/18 14:15 85 25 89/57 100 06/06/18 14:00 86 20 114/58 97 06/06/18 13:45 81 41 98/55 100 06/06/18 13:30 83 29 92/61 95 06/06/18 13:15 79 41 113/66 100 06/06/18 13:12 22 06/06/18 13:01 85 27 106/65 89 06/06/18 13:00 15 06/06/18 12:59 83 24 115/64 89 06/06/18 12:30 83 24 80/58 100 06/06/18 12:16 98.8 F 06/06/18 12:15 76 36 88/53 100 06/06/18 12:00 78 24 89/51 06/06/18 11:45 78 30 90/47 97 06/06/18 11:30 77 21 80/47 99 06/06/18 11:28 78 26 98 06/06/18 11:13 79 40 83/47 98 06/06/18 11:02 81 33 99 06/06/18 11:00 74 19 84/45 98 06/06/18 10:59 72 22 83/46 99 Lactic Acid: 06/03/18 06/06/18 06/06/18 18:15 02:36 10:15 Lactic Acid 0.8 2.7 H* 3.2 H* 06/06/18 06/06/18 14:20 17:30 Lactic Acid 2.4 H* 3.9 H* - Cardiopulmonary Exam Capillary Refill: Immediate - Skin Exam Skin Exam: Normal Turgor - [place] Coma Scale Best Eye Response: 4 - Spontaneous Best Motor Response: 6 - Obeys Commands Best Verbal Response: 5 - Oriented Coma Scale Total: 15 Assess/Plan/Problems-Billing Assessment: Mrs Lee is a 78yo F with PMH of COPD on home O2, HTN, HLD, PVD, DJD, GI bleed , who presented to ED with c/o dyspnea, found to have COPD exacerbation and pneumonia. Status and Disposition: Inpatient.
--- NOTE | 2018-06-06 22:59 | PN ---
Progress Note - Progress Note Date of Service: 06/06/18 Note: Paged that lactate is coming down to 2.7. Patient alert and oriented. Denies any complaints at this time. Levophed being weaned down.
[2018-06-07] MEDS: ZOSYN 3.375 GM Q8H per EXTENDED INFUSION IVPB SCH ×4 (05:21→13:25)
[2018-06-07] MEDS: Vancomycin(*) 750 MG in NS 0.9% 250 ML* 250 ML IVPB SCH ×2 (06:08→18:48)
[2018-06-07] MEDS ORDERED: NS 0.9% 1000 ML* 1,000 ML IV SCH ×2 (07:15→15:36)
[2018-06-07] MEDS: Albuterol/Ipratropium NEB.SOL* Albuterol 2.5 MG/Ipratropium 0.5 MG 3 ML INH SCH ×4 (07:21→21:13)
[2018-06-07] MEDS: Azithromycin IV(*) 500 MG in NS 0.9% 250 ML* 250 ML IVPB SCH (08:49)
[2018-06-07] MEDS: Enoxaparin(*) 60 MG/0.6 ML SYR SUBCUT SCH (08:52)
[2018-06-07] MEDS: Clopidogrel TAB* 75 MG PO SCH (08:54)
[2018-06-07] MEDS: PARoxetine HCL TAB* 20 MG PO SCH (08:54)
[2018-06-07] MEDS: Mometasone/Formoter 200/5 MDI INH SCH ×2 (09:02→21:13)
[2018-06-07 09:29] LABS: ABS Basophils 0 10^3/ul (0-0.2); ABS Eosinophils 0 10^3/ul (0-0.6); ABS Lymphocytes 0.9 10^3/ul (1.0-4.8); ABS Monocytes 0.9 10^3/ul (0-0.8); ABS Neutrophils 7.3 10^3/ul (1.5-7.7); ABS Nucleated RBC 0 10^3/ul; Eosinophil % 0.1 % (0-6); Hematocrit 30 % (35-47); Hemoglobin 9.8 g/dl (12.0-16.0); Lymphocyte % 9.4 % (25-47); Mean Corpuscular HGB Conc 33 g/dl (31-36); Mean Corpuscular Hemoglobin 28 pg (27-31); Mean Corpuscular Volume 84 fL (80-97); Mean Platelet Volume 6.5 um3 (7.4-10.4); Nucleated Red Blood Cells % 0; Platelet Count 338 10^3/ul (150-450); Red Blood Count 3.54 10^6/ul (4.00-5.40); Red Cell Distribution Width 18 % (10.5-15)
[2018-06-07 09:46] LABS: EGFR Non-African American 79.8 (>60)
[2018-06-07] MEDS: Nicotine Lozenge* 4 MG LOZENGE MT PRN ×3 (10:00→20:45)
--- NOTE | 2018-06-07 10:19 | PN ---
Subjective Date of Service: 06/07/18 Interval History: HOSPITALIST PROGRESS NOTE Patient seen and examined at bedside. Care reviewed and d/w Gabriela Maradiaga. She feels better today. Did not require further BiPAP last night and is now off pressors. Comfortable at rest, but still has severe dyspnea with minimal exertion. Family History: Unchanged from Admission Social History: Unchanged from Admission Past Medical History: Unchanged from Admission Objective Active Medications: Acetaminophen (Tylenol Tab*) 650 mg PO Q4H PRN PRN Reason: FEVER/PAIN Last Admin: 06/04/18 09:53 Dose: 650 mg Albuterol (Ventolin 2.5 Mg/3 Ml Neb.Paula*) 2.5 mg INH Q2H PRN PRN Reason: SOB/WHEEZING Last Admin: 06/06/18 11:24 Dose: 2.5 mg Albuterol/Ipratropium (Duoneb (Albuterol 2.5 Mg/Ipratropium 0.5 Mg)) 1 neb INH [id number] AWAKE [facility] Last Admin: 06/07/18 07:25 Dose: Not Given Atorvastatin Calcium (Lipitor*) 80 mg PO QPM [facility] Last Admin: 06/06/18 18:47 Dose: 80 mg Clopidogrel Bisulfate (Plavix Tab*) 75 mg PO DAILY [facility] Last Admin: 06/07/18 08:54 Dose: 75 mg Enoxaparin Sodium (Lovenox(*)) 50 mg SUBCUT Q12H [facility] Last Admin: 06/07/18 08:52 Dose: 50 mg Heparin Sodium (Porcine) (Heparin Flush Picc/Ml/Cvc(*)) 1 - 3 ml FLUSH 0600, 1800 [facility]; Protocol Last Admin: 06/07/18 06:29 Dose: Not Given Hydralazine HCl (Apresoline Iv*) 5 mg IV SLOW PU Q6H PRN PRN Reason: BLOOD PRESSURE Last Admin: 06/04/18 12:10 Dose: 5 mg Hydroxyzine HCl (Atarax Tab*) 25 mg PO Q6H PRN PRN Reason: ANXIETY Last Admin: 06/04/18 14:26 Dose: 25 mg Azithromycin 500 mg/ Sodium (Chloride) 250 mls @ 250 mls/hr IVPB Q24H [facility] Last Admin: 06/07/18 08:49 Dose: 250 mls/hr Piperacillin Sod/Tazobactam (Sod 3.375 gm/ Sodium Chloride) 100 mls @ 25 mls/ hr IVPB Q8H [facility] Last Admin: 06/07/18 05:21 Dose: 25 mls/hr Vancomycin HCl 750 mg/ Sodium (Chloride) 250 mls @ 166.667 mls/hr IVPB Q12H [facility] Last Admin: 06/07/18 06:08 Dose: 166.667 mls/hr Norepinephrine Bitartrate (Levophed 16 Mcg/Ml Premix Bag*) 4,000 mcg in 250 mls @ 18.75 mls/hr IV .INITIAL RATE [facility]; Protocol Last Admin: 06/06/18 18:53 Dose: 18.75 mls/hr Sodium Chloride (Ns 0.9% 1000 Ml*) 1,000 mls @ 100 mls/hr IV PER RATE [facility] Methylprednisolone Sodium Succinate (Solu-Medrol 40 Mg) 40 mg IV Q12H [facility] Last Admin: 06/06/18 22:09 Dose: 40 mg Mometasone Furoate/Formoterol Fumar (Dulera 200/5 Mdi*) 2 puff INH BID [facility] Last Admin: 06/07/18 09:02 Dose: 2 puff Morphine Sulfate (Morphine Vial*) 5 mg IV Q4H PRN PRN Reason: Pain/Tachypnea RR>24 Last Admin: 06/06/18 19:43 Dose: 5 mg Nicotine (Nicotine Inhaler*) 10 mg INH Q2H PRN PRN Reason: CRAVINGS Nicotine Polacrilex (Nicotine Lozenge*) 4 mg MT Q2H PRN PRN Reason: CRAVINGS Last Admin: 06/07/18 10:00 Dose: 4 mg Paroxetine HCl (Paxil Tab*) 20 mg PO DAILY [facility] Last Admin: 06/07/18 08:54 Dose: 20 mg Pharmacy Consult (Zosyn Per Pharmacy*) 1 note FOLLOW UP .ZOSYN PER PHARMACY [facility] Pharmacy Consult (Vancomycin Per Pharmacy*) 1 note FOLLOW UP . PRN PRN Reason: PER PROTOCOL Pharmacy Profile Note (Vancomycin Trough Check) 1 note FOLLOW UP 0530 ONE Stop: 06/08/18 05:31 Trazodone HCl (Desyrel Tab*) 50 mg PO BEDTIME PRN PRN Reason: SLEEP Last Admin: 06/06/18 21:01 Dose: 50 mg Vital Signs - 8 hr 08/13/18 08/13/18 08/13/18 02:15 02:30 02:45 Temperature Pulse Rate 77 76 79 Respiratory 23 22 20 Rate Blood Pressure 160/77 150/75 145/71 (mmHg) O2 Sat by Pulse 98 99 96 Oximetry 06/07/18 06/07/18 06/07/18 03:00 03:15 03:30 Temperature Pulse Rate 79 74 75 Respiratory 22 22 24 Rate Blood Pressure 133/74 160/73 158/80 (mmHg) O2 Sat by Pulse 98 98 99 Oximetry 06/07/18 06/07/18 06/07/18 03:45 04:00 04:15 Temperature Pulse Rate 75 74 89 Respiratory 23 23 17 Rate Blood Pressure 156/78 159/78 158/85 (mmHg) O2 Sat by Pulse 99 99 96 Oximetry 06/07/18 06/07/18 06/07/18 04:30 04:45 05:00 Temperature Pulse Rate 75 75 71 Respiratory 21 23 21 Rate Blood Pressure 168/84 147/80 153/77 (mmHg) O2 Sat by Pulse 99 100 100 Oximetry 06/07/18 06/07/18 06/07/18 05:15 05:30 05:45 Temperature Pulse Rate 76 73 72 Respiratory 21 23 19 Rate Blood Pressure 160/82 132/78 145/76 (mmHg) O2 Sat by Pulse 99 100 100 Oximetry 06/07/18 06/07/18 06/07/18 06:00 06:15 06:45 Temperature Pulse Rate 87 74 73 Respiratory 27 23 23 Rate Blood Pressure 126/74 120/63 105/65 (mmHg) O2 Sat by Pulse 94 95 98 Oximetry 06/07/18 06/07/18 06/07/18 07:00 07:15 07:23 Temperature Pulse Rate 70 70 97 Respiratory 29 24 17 Rate Blood Pressure 106/63 87/66 (mmHg) O2 Sat by Pulse 99 100 96 Oximetry 06/07/18 06/07/18 06/07/18 07:30 07:38 07:45 Temperature 97.6 F Pulse Rate 69 76 Respiratory 28 37 Rate Blood Pressure 112/63 109/64 (mmHg) O2 Sat by Pulse 99 99 Oximetry 06/07/18 06/07/18 06/07/18 08:00 08:15 08:30 Temperature Pulse Rate 67 66 70 Respiratory 31 33 22 Rate Blood Pressure 129/73 119/69 132/69 (mmHg) O2 Sat by Pulse 100 100 100 Oximetry 06/07/18 06/07/18 06/07/18 08:45 09:00 09:08 Temperature Pulse Rate 65 85 Respiratory 25 23 42 Rate Blood Pressure 104/61 113/75 (mmHg) O2 Sat by Pulse 100 96 Oximetry 06/07/18 06/07/18 06/07/18 09:15 09:30 09:45 Temperature Pulse Rate 87 77 80 Respiratory 27 37 25 Rate Blood Pressure 114/74 109/63 109/63 (mmHg) O2 Sat by Pulse 94 95 90 Oximetry 06/07/18 10:00 Temperature Pulse Rate 85 Respiratory 26 Rate Blood Pressure 109/60 (mmHg) O2 Sat by Pulse 89 Oximetry Oxygen Devices in Use Now: High Flow Nasal Cannula - Salter 8 liters Appearance: Pleasant thin lady sitting up in bed in NAD. Eyes: No Scleral Icterus Ears/Nose/Mouth/Throat: Mucous Membranes Moist Neck: Trachea Midline Respiratory: Symmetrical Chest Expansion and Respiratory Effort, - - BS+ bilaterally diminished with no added sounds Cardiovascular: RRR - Normal S1 and S2 Abdominal: NL Sounds; No Tenderness; No Distention Neurological: Alert and Oriented x 3, NL Muscle Strength and Tone Result Diagrams: 06/07/18 09:10 06/07/18 09:10 Assess/Plan/Problems-Billing Assessment: Mrs Lee is a 78yo F with PMH of COPD on home O2, HTN, HLD, PVD, DJD, GI bleed , who presented to ED with c/o dyspnea, found to have COPD exacerbation and pneumonia. - Patient Problems (1) Septic shock Comment: - Secondary to pneumonia. - Resolved. - Off Levophed with good BP and urine output. - Continue IVF. (2) Acute and chronic respiratory failure with hypoxia Comment: - Secondary to COPD exacerbation, pneumonia, atelectasis, but I'm concerned her sudden decompensation may be secondary to PE. - Stable for CTA chest today - continue Lovenox for now. - Continue supplemental O2. (3) Pneumonia Comment: - CxR showed left base consolidation. - As she had worsening of her condition, antibiotics were changed to Vanco/ Zosyn yesterday to cover possible health care associated pneumonia, with MRSA and Pseudomonas coverage. Will switch Zosyn to Cefepime due to risk of nephrotoxicity. - Legionella and Pneumo Ags are negative, blood cultures show no growth. - Sputum culture showed normal roney. - CT chest shows RML collapse, small RUL and LLL infiltrates - Pulm consult appreciated. - This could be secondary to mucous plug, but with her significant h/o tobacco abuse, I'm concerned with malignancy. Will probably need bronch when more stable. (4) COPD exacerbation Comment: - Secondary to pneumonia. - Continue steroids, bronchodilators. (5) PVD (peripheral vascular disease) Comment: - Continue Atorvastatin and Plavix. (6) Tobacco abuse Comment: - Nicotine inhaler PRN. (7) HLD (hyperlipidemia) Comment: - Continue Atorvastatin. (8) DVT prophylaxis Comment: - Lovenox. (9) DNR (do not resuscitate) Status and Disposition: Inpatient.
[2018-06-07] MEDS ORDERED: Iohexol 350* (CONTRAST) 500 ML MDV IV ONE (11:17)
--- NOTE | 2018-06-07 12:13 | RAD ---
HISTORY: Severe dyspnea r/o PE COMPARISONS: June 05, 2018 TECHNIQUE: Multiple contiguous axial CT scans of the chest were obtained after the administration of nonionic intravenous contrast, timed to the pulmonary arterial phase of contrast enhancement.. Coronal and sagittal multiplanar reformations are also submitted for review. FINDINGS: NECK AND THYROID: The lower neck and thyroid are unremarkable. CHEST WALL: There is no lower cervical, axillary, or supraclavicular lymphadenopathy by size criteria. HEART AND PERICARDIUM: Coronary and valvular cardiac calcifications are noted. AORTA AND PULMONARY VASCULATURE: There is no pulmonary arterial filling defect to suggest pulmonary embolism. There is no linear filling defect within the aorta to suggest aortic dissection. There is atherosclerosis of the thoracic aorta. MEDIASTINUM: There is no mediastinal lymphadenopathy by size criteria. ADRI: There is no hilar lymphadenopathy by size criteria. AIRWAY AND ESOPHAGUS: There is biapical bronchiectasis. LUNG PARENCHYMA: There has been interval development of complete atelectasis of the right lower lobe. There is patchy ground glass opacification of the right middle lobe. There is patchy consolidation of the right upper lobe. There has been interval reexpansion of the atelectatic right middle lobe. PLEURA: There is a small right pleural effusion. UPPER ABDOMEN: The upper abdomen is unremarkable. BONES AND SOFT TISSUES: Degenerative changes are noted. OTHER: None. IMPRESSION: 1. NO PULMONARY ARTERIAL FILLING DEFECT TO SUGGEST PULMONARY EMBOLISM. 2. THERE HAS BEEN INTERVAL DEVELOPMENT OF COMPLETE ATELECTASIS OF THE RIGHT LOWER LOBE. 3. THERE IS PATCHY AIRSPACE DISEASE OF THE RIGHT UPPER AND MIDDLE LOBES. 4. EMPHYSEMA. 5. BRONCHIECTASIS. 6. ATHEROSCLEROSIS.
[2018-06-07] MEDS: methylPREDNISolone SOD 40 MG* 1 ML VIAL IV SCH ×2 (12:14→22:43)
[2018-06-07] MEDS: Cefepime 1 GM in Dextrose(*) 1 GM/50 ML BAG IV SCH ×2 (12:16→22:43)
--- NOTE | 2018-06-07 13:26 | ECHO ---
Patient: LIN JOVEL [facility] Rec#: [id number] : 1940 Date: 06/07/2018 Age: 78y Height: 163 cm / 64.2 in Weight: 53 kg / 116.8 lbs Sex: F BSA: 1.6 Room#: ICU 10 Admit Date#: 06/03/2018 Type: Inpatient Referring: LUH MAHER Reading: René Loaiza MD Lead Principal Technical Architect: Marylin Valdivia RN RDCS Transthoracic Echocardiogram Indication: Shortness of breath BP: 120/63 HR: 72 Rhythm: NSR Findings History: HTN, HLD, PVD, COPD Technical Comments: The study quality is fair. The study is technically limited due to the patient's history of COPD. Left Ventricle: The left ventricular chamber size is normal. Mild concentric left ventricular hypertrophy is observed. Global left ventricular wall motion and contractility are within normal limits. The left ventricle appears hyperdynamic. The estimated ejection fraction is greater than 65%. Abnormal left ventricular diastolic filling is observed, consistent with impaired relaxation. Left Atrium: The left atrial chamber size is normal. Right Ventricle: The right ventricular cavity size is normal. The right ventricular global systolic function is low normal. Right Atrium: The right atrial cavity size is normal. Aortic Valve: The aortic valve is trileaflet. The aortic valve leaflets are mildly thickened. There is aortic annular calcification. There is trace to mild aortic regurgitation. There is no evidence of aortic stenosis. Mitral Valve: The mitral valve leaflets are mildly thickened. Mitral valve leaflet mobility is mildly restricted. There is moderate mitral regurgitation. The mitral regurgitant jet is posteriorly directed. The mitral regurgitant jet is laterally directed. There is no evidence of mitral stenosis. Tricuspid Valve: The tricuspid valve leaflets are normal. There is moderate tricuspid regurgitation. There is evidence of moderate pulmonary hypertension. There is no tricuspid stenosis. Pulmonic Valve: The pulmonic valve appears normal. There is mild to moderate pulmonic regurgitation. There is no pulmonic stenosis. Pericardium: There is no significant pericardial effusion. Aorta: There is no dilatation of the ascending aorta. There is no dilatation of the aortic arch. There is no dilation of the aortic root. Pulmonary Artery: The main pulmonary artery appears normal. Venous: The inferior vena cava appears normal in size. There is less than 50% respiratory change in the inferior vena cava dimension. Summary: There was not any prior study for comparison. Conclusions Mild concentric left ventricular hypertrophy is observed. Global left ventricular wall motion and contractility are within normal limits. The estimated ejection fraction is greater than 65%. Abnormal left ventricular diastolic filling is observed, consistent with impaired relaxation. There is trace to mild aortic regurgitation. There is no evidence of aortic stenosis. There is moderate mitral regurgitation. The mitral regurgitant jet is laterally directed. There is no evidence of mitral stenosis. There is moderate tricuspid regurgitation. There is evidence of moderate pulmonary hypertension. There is no significant pericardial effusion. Measurements Name Value Normal Range RVIDd (AP) 2D 2.4 cm (0.9 - 2.6) RVDdMajor (2D) 2.6 cm (2.2 - 4.4) RAd ISD 4CH 4.3 cm (3.4 - 4.9) RA (A4C)W 3.3 cm (2.9 - 4.6) IVSd (2D) 1.1 cm (0.6 - 1) LVPWd (2D) 1.1 cm (0.6 - 1) LVIDd (2D) 4 cm (3.6 - 5.4) LVIDs (2D) 2.4 cm - LV FS (2D) 39 % (25 - 45) Aortic Annulus 2.1 cm (1.4 - 2.6) Ao root diameter (2D) 3.2 cm (2.1 - 3.5) Ascending Ao 3.2 cm (2.1 - 3.4) LA dimension (AP) 2D 2.7 cm (2.3 - 3.8) LAd ISD 4CH 4.7 cm (2.9 - 5.3) LA ISD 4CH W 3.8 cm (2.5 - 4.5) Name Value Normal Range LA ESV SP 4CH (A/L) 48 ml - LA ESV SP 2CH (A/L) 42 ml - LA ESV BP (A/L) 46 ml - LA ESV BP (A/L) index 30 ml/m2 - LA ESV SP 4CH (MOD) 45 ml - LA ESV SP 2CH (MOD) 39 ml - Name Value Normal Range MV E-wave Vmax 1.1 m/sec - MV deceleration time 256 msec - MV A-wave Vmax 1.4 m/sec - MV E:A ratio 0.82 ratio - LV septal e' Vmax 0.07 m/sec - LV lateral e' Vmax 0.08 m/sec - LV E:e' septal ratio 15.7 ratio - LV E:e' lateral ratio 13.8 ratio - Name Value Normal Range AV Vmax 1.4 m/sec - AV VTI 31.1 cm - AV peak gradient 7.6 mmHg - AV mean gradient 4.3 mmHg - LVOT Vmax 1.7 m/sec - LVOT VTI 24.3 cm - LVOT peak gradient 4.5 mmHg - LVOT mean gradient 2.2 mmHg - Name Value Normal Range MV Vmax 1.6 m/sec - MV peak gradient 10 mmHg - MV mean gradient 2 mmHg - MR flow (PISA) 83.8 ml/sec - MR PISA radius 0.6 cm - MR alias Vmax 35 cm/sec - Name Value Normal Range TR Vmax 3.2 m/sec - TR peak gradient 41 mmHg - RAP 8 mmHg - RVSP 49 mmHg - IVC diameter 2 cm - Name Value Normal Range PV Vmax 0.53 m/sec -
[2018-06-07] MEDS: Morphine VIAL* 10 MG/ML 1 ML VIAL IV PRN (14:02)
--- NOTE | 2018-06-07 15:44 | PN ---
Progress Note - Progress Note Date of Service: 06/07/18 Note: Progress Note Critical Care 24 hour events/significant events: -on NC overnight; off pressors yesterday. Awake, alert. No complaints. Cough+, no sputum. On NC 6-8L now. Tele: nsr Vitals: Vital Signs Temp 97.5 F 06/07/18 11:30 Pulse 88 06/07/18 15:15 Resp 16 06/07/18 15:15 BP 167/79 06/07/18 14:00 Pulse Ox 93 06/07/18 15:15 Intake & Output 06/06/18 06/07/18 06/07/18 18:59 06:59 18:59 Intake Total 3917.6 2175 1213 Output Total 1875 2700 400 Balance 2042.6 -525 813 Weight 52.526 kg Intake: IV Fluids 1674.6 1981 591 ABX - CEFTRIAXONE 50.6 LR 1624 NS (0.9%) 1719 580 Vancomycin 223 11 Zosyn 39 IVPB 793 422 ABX - AZITHROMYCIN 255 NS (0.9%) 538 157 Vancomycin 250 Zosyn 15 Medicated IV 94 Levophed 94 Oral 1450 100 200 Output: Urine 1875 2700 400 O2/Vent: NC 6L Infusions: heplock Medications: Acetaminophen (Tylenol Tab*) 650 mg PO Q4H PRN PRN Reason: FEVER/PAIN Last Admin: 06/04/18 09:53 Dose: 650 mg Albuterol (Ventolin 2.5 Mg/3 Ml Neb.Paula*) 2.5 mg INH Q2H PRN PRN Reason: SOB/WHEEZING Last Admin: 06/06/18 11:24 Dose: 2.5 mg Albuterol/Ipratropium (Duoneb (Albuterol 2.5 Mg/Ipratropium 0.5 Mg)) 1 neb INH [id number] AWAKE [facility] Last Admin: 06/07/18 15:14 Dose: 1 neb Atorvastatin Calcium (Lipitor*) 80 mg PO QPM [facility] Last Admin: 06/06/18 18:47 Dose: 80 mg Clopidogrel Bisulfate (Plavix Tab*) 75 mg PO DAILY [facility] Last Admin: 06/07/18 08:54 Dose: 75 mg Heparin Sodium (Porcine) (Heparin Flush Picc/Ml/Cvc(*)) 1 - 3 ml FLUSH 0600, 1800 [facility]; Protocol Last Admin: 06/07/18 06:29 Dose: Not Given Heparin Sodium (Porcine) (Heparin Vial(*)) 5,000 units SUBCUT Q8HR [facility] Hydralazine HCl (Apresoline Iv*) 5 mg IV SLOW PU Q6H PRN PRN Reason: BLOOD PRESSURE Last Admin: 06/04/18 12:10 Dose: 5 mg Hydroxyzine HCl (Atarax Tab*) 25 mg PO Q6H PRN PRN Reason: ANXIETY Last Admin: 06/04/18 14:26 Dose: 25 mg Azithromycin 500 mg/ Sodium (Chloride) 250 mls @ 250 mls/hr IVPB Q24H [facility] Last Admin: 06/07/18 08:49 Dose: 250 mls/hr Vancomycin HCl 750 mg/ Sodium (Chloride) 250 mls @ 166.667 mls/hr IVPB Q12H [facility] Last Admin: 06/07/18 06:08 Dose: 166.667 mls/hr Cefepime HCl (Maxipime 1 Gm In Dextrose Duplex (*)) 1 gm in 50 mls @ 100 mls/ hr IV Q12H [facility] Last Admin: 06/07/18 12:16 Dose: 100 mls/hr Sodium Chloride (Ns 0.9% 1000 Ml*) 1,000 mls @ 50 mls/hr IV PER RATE [facility] Methylprednisolone Sodium Succinate (Solu-Medrol 40 Mg) 40 mg IV Q12H [facility] Last Admin: 06/07/18 12:14 Dose: 40 mg Mometasone Furoate/Formoterol Fumar (Dulera 200/5 Mdi*) 2 puff INH BID [facility] Last Admin: 06/07/18 09:02 Dose: 2 puff Morphine Sulfate (Morphine Vial*) 5 mg IV Q4H PRN PRN Reason: Pain/Tachypnea RR>24 Last Admin: 06/07/18 14:02 Dose: 5 mg Nicotine (Nicotine Inhaler*) 10 mg INH Q2H PRN PRN Reason: CRAVINGS Nicotine Polacrilex (Nicotine Lozenge*) 4 mg MT Q2H PRN PRN Reason: CRAVINGS Last Admin: 06/07/18 13:30 Dose: 4 mg Paroxetine HCl (Paxil Tab*) 20 mg PO DAILY [facility] Last Admin: 06/07/18 08:54 Dose: 20 mg Pharmacy Consult (Vancomycin Per Pharmacy*) 1 note FOLLOW UP . PRN PRN Reason: PER PROTOCOL Pharmacy Profile Note (Vancomycin Trough Check) 1 note FOLLOW UP 05 ONE Stop: 06/08/18 05:31 Trazodone HCl (Desyrel Tab*) 50 mg PO BEDTIME PRN PRN Reason: SLEEP Last Admin: 06/06/18 21:01 Dose: 50 mg Physical Exam: General: awake, alert, no distress, no diaphoresis Head: normocephalic, atraumatic HEENT: no pallor, no icterus, moist mucous membranes Neck: soft, supple, no jvd, no stridor CVS: normal rate, regular, no murmur Resp: bilateral air entry diminished overall, no rhales, no wheeze, no rhonchi, no acc muscle use Abdomen: soft, nontender, nondistended, bowel sounds present Ext: pulses+, warm, no edema Skin: intact, no breakdown, no dryness Neuro: awake, alert, orientedx3, moving all extremities, no gross focal deficit Labs: Laboratory Results - last 24 hr 06/06/18 06/06/18 06/07/18 17:30 20:36 09:10 WBC 9.0 RBC 3.54 L Hgb 9.8 L Hct 30 L MCV 84 MCH 28 MCHC 33 RDW 18 H Plt Count 338 MPV 6.5 L Neut % (Auto) 80.7 Lymph % (Auto) 9.4 L Hamb[place] % (Auto) 9.7 H Eos % (Auto) 0.1 Baso % (Auto) 0.1 Absolute Neuts (auto) 7.3 Absolute Lymphs (auto) 0.9 L Absolute Monos (auto) 0.9 H Absolute Eos (auto) 0 Absolute Basos (auto) 0 Absolute Nucleated RBC 0 Nucleated RBC % 0 Sodium Potassium Chloride Carbon Dioxide Anion Gap BUN Creatinine Est GFR ( Amer) Est GFR (Non-Af Amer) BUN/Creatinine Ratio Glucose Lactic Acid 3.9 H* 2.7 H* Calcium 06/07/18 09:10 WBC RBC Hgb Hct MCV MCH MCHC RDW Plt Count MPV Neut % (Auto) Lymph % (Auto) [place] % (Auto) Eos % (Auto) Baso % (Auto) Absolute Neuts (auto) Absolute Lymphs (auto) Absolute Monos (auto) Absolute Eos (auto) Absolute Basos (auto) Absolute Nucleated RBC Nucleated RBC % Sodium 137 D Potassium 4.3 Chloride 104 Carbon Dioxide 30 Anion Gap 3 BUN 13 Creatinine 0.71 Est GFR ( Amer) 96.6 Est GFR (Non-Af Amer) 79.8 BUN/Creatinine Ratio 18.3 Glucose 98 Lactic Acid Calcium 8.8 Imaging: CTA chest 06/07 no PE, RUL and RML consolidations+, RLL collapse/atelectasis+ Assessment: 78y F w/pmhx of former smoker who recently quit, COPD, chronic Home O2 2L, HTN, HLD< PVD, DJD, h/o GIB; admitted for COPD exacerbation, suspected Left lower lobe pneumonia. Developed progressive respiratory failure with hypoxia, upgraded to ICU for NIV. She was briefly on Pressors and improved. -Acute on chronic hypoxic respiratory failure -COPD exacerbation -RUL and RML pneumonia -Septic Shock, improved Plan: Neuro- stable CVS- cont statin/Plavix for PVD. BP stable. HR stable. IVF NS dec to 50cc/hr. Euvolemic appearing. No pressors needed. Resp- not needing NIV. Has improved and on NC 6L now, cont decreasing requirements. Metanebs q4h. Encourage Chest PT if needed fro collapse. Not much sputum production. ID- afebrile. wbc normalized. off pressors. sputum / sternotrophonomas+. Now on IV zosyn/vanco. CT chest multifocal infiltrates+. Clinically improved though. No change in abx, continue as is for now. GI- can start cardiac diet. h2b proph. Renal- Heme- hg stable. plt okay. Endo- fingersticks as needed Musculsk- pressure ulcer prophylaxis. Bedrest. Wounds- none Nutrition- NPO now; can try PO diet DVT prophylaxis: heparin sq GI prophylaxis: pepcid Central Line: no Arterial Line: no Schwartz Cathetor: no Disposition: clinically improving, continued dec in fio2. chest pt. can go to monitored bed. Code Status: DNR Total Critical Care time is 35 minutes, excluding procedures/teaching Mckay Grigsby MD Metrology Technician (Electronically Signed)
[2018-06-07] MEDS: Atorvastatin* 80 MG TAB PO SCH (18:46)
[2018-06-07] MEDS: traZODone TAB* 50 MG TAB PO PRN (20:45)
[2018-06-07] MEDS: Heparin VIAL(*) 5000 UNITS/ML VIAL (FIVE THOUSAND) SUBCUT SCH (20:46)
[2018-06-08] MEDS: Albuterol/Ipratropium NEB.SOL* Albuterol 2.5 MG/Ipratropium 0.5 MG 3 ML INH SCH ×5 (01:45→18:47)
[2018-06-08] MEDS: hydrOXYzine HCL TAB* 25 MG PO PRN ×2 (04:07→19:13)
[2018-06-08] MEDS: Morphine VIAL* 4 MG/ML VIAL (1 ml vial) IV PRN ×2 (04:07→18:55)
[2018-06-08] MEDS ORDERED: Vancomycin Trough Check NOTE FOLLOW UP ONE (05:30)
[2018-06-08 05:47] LABS: ABS Basophils 0 10^3/ul (0-0.2); ABS Eosinophils 0 10^3/ul (0-0.6); ABS Lymphocytes 0.5 10^3/ul (1.0-4.8); ABS Monocytes 0.6 10^3/ul (0-0.8); ABS Neutrophils 6.1 10^3/ul (1.5-7.7); ABS Nucleated RBC 0 10^3/ul; Eosinophil % 0 % (0-6); Hematocrit 27 % (35-47); Hemoglobin 8.7 g/dl (12.0-16.0); Lymphocyte % 6.5 % (25-47); Mean Corpuscular HGB Conc 32 g/dl (31-36); Mean Corpuscular Hemoglobin 27 pg (27-31); Mean Corpuscular Volume 84 fL (80-97); Mean Platelet Volume 6.7 um3 (7.4-10.4); Nucleated Red Blood Cells % 0; Platelet Count 299 10^3/ul (150-450); Red Blood Count 3.21 10^6/ul (4.00-5.40); Red Cell Distribution Width 18 % (10.5-15); White Blood Count 7.1 10^3/ul (3.5-10.8)
[2018-06-08 06:03] LABS: EGFR Non-African American 109.5 (>60)
[2018-06-08 06:26] LABS: Vancomycin Trough 9.3 mcg/mL
[2018-06-08] MEDS: Vancomycin(*) 750 MG in NS 0.9% 250 ML* 250 ML IVPB SCH (06:31)
[2018-06-08] MEDS: Heparin VIAL(*) 5000 UNITS/ML VIAL (FIVE THOUSAND) SUBCUT SCH ×3 (06:31→20:20)
[2018-06-08] MEDS: Mometasone/Formoter 200/5 MDI INH SCH ×2 (08:11→19:12)
[2018-06-08] MEDS ORDERED: Famotidine IV * 20 MG in NS 0.9% 100 ML* 100 ML IVPB SCH (09:00)
[2018-06-08] MEDS: Vancomycin(*) 1,000 MG in NS 0.9% 250 ML* 250 ML IVPB SCH ×2 (09:35→18:01)
[2018-06-08] MEDS: Famotidine IV* 10 MG/ML 2 ML (20 mg) IV SCH (09:56)
[2018-06-08] MEDS: methylPREDNISolone SOD 40 MG* 1 ML VIAL IV SCH ×2 (09:59→21:38)
[2018-06-08] MEDS: PARoxetine HCL TAB* 20 MG PO SCH (10:03)
[2018-06-08] MEDS: Nicotine Lozenge* 4 MG LOZENGE MT PRN ×2 (10:04→13:10)
[2018-06-08] MEDS: Clopidogrel TAB* 75 MG PO SCH (10:04)
[2018-06-08] MEDS: Cefepime 1 GM in Dextrose(*) 1 GM/50 ML BAG IV SCH ×2 (10:06→21:38)
[2018-06-08] MEDS: Azithromycin IV(*) 500 MG in NS 0.9% 250 ML* 250 ML IVPB SCH (10:53)
[2018-06-08] MEDS: Albuterol 2.5 MG/3 ML NEB.SOL* (0.083%) INH PRN (11:51)
--- NOTE | 2018-06-08 15:48 | PN ---
Subjective Date of Service: 06/08/18 Interval History: HOSPITALIST PROGRESS NOTE Patient seen and examined at bedside. Care reviewed and d/w Neyda Marino RN. She feels weak today. Breathing is okay while at rest, but still has significant dyspnea with minimal exertion. Denies CP or palpitations. Family History: Unchanged from Admission Social History: Unchanged from Admission Past Medical History: Unchanged from Admission Objective Active Medications: Acetaminophen (Tylenol Tab*) 650 mg PO Q4H PRN PRN Reason: FEVER/PAIN Last Admin: 06/04/18 09:53 Dose: 650 mg Albuterol (Ventolin 2.5 Mg/3 Ml Neb.Paula*) 2.5 mg INH Q2H PRN PRN Reason: SOB/WHEEZING Last Admin: 06/08/18 11:51 Dose: 2.5 mg Albuterol/Ipratropium (Duoneb (Albuterol 2.5 Mg/Ipratropium 0.5 Mg)) 1 neb INH [id number] AWAKE [facility] Last Admin: 06/08/18 13:13 Dose: Not Given Atorvastatin Calcium (Lipitor*) 80 mg PO QPM [facility] Last Admin: 06/07/18 18:46 Dose: 80 mg Clopidogrel Bisulfate (Plavix Tab*) 75 mg PO DAILY [facility] Last Admin: 06/08/18 10:04 Dose: 75 mg Famotidine (Pepcid Iv*) 20 mg IV DAILY [facility] Last Admin: 06/08/18 09:56 Dose: 20 mg Heparin Sodium (Porcine) (Heparin Flush Picc/Ml/Cvc(*)) 1 - 3 ml FLUSH 0600, 1800 [facility]; Protocol Last Admin: 06/08/18 05:35 Dose: 2 ml Heparin Sodium (Porcine) (Heparin Vial(*)) 5,000 units SUBCUT Q8HR [facility] Last Admin: 06/08/18 13:11 Dose: 5,000 units Hydralazine HCl (Apresoline Iv*) 5 mg IV SLOW PU Q6H PRN PRN Reason: BLOOD PRESSURE Last Admin: 06/04/18 12:10 Dose: 5 mg Hydroxyzine HCl (Atarax Tab*) 25 mg PO Q6H PRN PRN Reason: ANXIETY Last Admin: 06/08/18 04:07 Dose: 25 mg Azithromycin 500 mg/ Sodium (Chloride) 250 mls @ 250 mls/hr IVPB Q24H [facility] Last Admin: 06/08/18 10:53 Dose: 250 mls/hr Cefepime HCl (Maxipime 1 Gm In Dextrose Duplex (*)) 1 gm in 50 mls @ 100 mls/ hr IV Q12H [facility] Last Admin: 06/08/18 10:06 Dose: 100 mls/hr Vancomycin HCl 1,000 mg/ (Sodium Chloride) 250 mls @ 166.667 mls/hr IVPB 0600, 1800 [facility] Methylprednisolone Sodium Succinate (Solu-Medrol 40 Mg) 40 mg IV Q12H [facility] Last Admin: 06/08/18 09:59 Dose: 40 mg Mometasone Furoate/Formoterol Fumar (Dulera 200/5 Mdi*) 2 puff INH BID [facility] Last Admin: 06/08/18 08:11 Dose: 2 puff Morphine Sulfate (Morphine Vial*) 5 mg IV Q4H PRN PRN Reason: Pain/Tachypnea RR>24 Last Admin: 06/08/18 04:07 Dose: 5 mg Nicotine (Nicotine Inhaler*) 10 mg INH Q2H PRN PRN Reason: CRAVINGS Nicotine Polacrilex (Nicotine Lozenge*) 4 mg MT Q2H PRN PRN Reason: CRAVINGS Last Admin: 06/08/18 13:10 Dose: 4 mg Paroxetine HCl (Paxil Tab*) 20 mg PO DAILY [facility] Last Admin: 06/08/18 10:03 Dose: 20 mg Pharmacy Consult (Vancomycin Per Pharmacy*) 1 note FOLLOW UP . PRN PRN Reason: PER PROTOCOL Pharmacy Profile Note (Vancomycin Trough Check) 1 note FOLLOW UP 0600 ONE Stop: 06/10/18 06:01 Trazodone HCl (Desyrel Tab*) 50 mg PO BEDTIME PRN PRN Reason: SLEEP Last Admin: 06/07/18 20:45 Dose: 50 mg Vital Signs - 8 hr 06/08/18 06/08/18 06/08/18 07:45 08:06 08:14 Temperature 98.3 F Pulse Rate 83 75 Respiratory 24 18 16 Rate Blood Pressure 127/64 (mmHg) O2 Sat by Pulse 96 97 Oximetry 06/08/18 06/08/18 11:53 12:14 Temperature 97.9 F Pulse Rate 84 92 Respiratory 20 20 Rate Blood Pressure 136/60 (mmHg) O2 Sat by Pulse 95 91 Oximetry Oxygen Devices in Use Now: Nasal Cannula - 3.5 liters Appearance: Pleasant lady sitting up in bed in NAD. Eyes: No Scleral Icterus Ears/Nose/Mouth/Throat: Mucous Membranes Moist Neck: Trachea Midline Respiratory: Symmetrical Chest Expansion and Respiratory Effort, - - BS+ bilaterally diminished Neurological: Alert and Oriented x 3, NL Muscle Strength and Tone Result Diagrams: 06/08/18 05:30 06/08/18 05:30 Assess/Plan/Problems-Billing Assessment: Mrs Lee is a 78yo F with PMH of COPD on home O2, HTN, HLD, PVD, DJD, GI bleed , who presented to ED with c/o dyspnea, found to have COPD exacerbation and pneumonia. - Patient Problems (1) Septic shock Comment: - Secondary to pneumonia. - Resolved. - Off Levophed with good BP and urine output. - D/c IVF. (2) Acute and chronic respiratory failure with hypoxia Comment: - Secondary to COPD exacerbation, pneumonia, atelectasis, but I'm concerned her sudden decompensation may be secondary to PE. - Stable for CTA chest today - continue Lovenox for now. - Continue supplemental O2 and titrate down as tolerated. (3) Pneumonia Comment: - CxR showed left base consolidation. - Legionella and Pneumo Ags are negative, blood cultures show no growth. - Sputum culture showed normal roney. - CT chest shows RML collapse, small RUL and LLL infiltrates - Pulm consult appreciated. - This could be secondary to mucous plug, but with her significant h/o tobacco abuse, I'm concerned with malignancy. Will probably need bronch when more stable. - Continue Vanco/Cefepime #3. (4) COPD exacerbation Comment: - Secondary to pneumonia. - Continue steroids, bronchodilators. (5) PVD (peripheral vascular disease) Comment: - Continue Atorvastatin and Plavix. (6) Tobacco abuse Comment: - Nicotine inhaler PRN. (7) HLD (hyperlipidemia) Comment: - Continue Atorvastatin. (8) DVT prophylaxis Comment: - Lovenox. (9) DNR (do not resuscitate) Status and Disposition: Inpatient.
--- NOTE | 2018-06-08 17:15 | PN ---
Progress Note - Progress Note Date of Service: 06/08/18 - Pulm f/u note Note: Pt seen and examined at bedside. Pt reports SOB, was off O2 this am, was dyspenic even with speaking Active Medications Generic Name Dose Route Start Last Admin Trade Name Freq PRN Reason Stop Dose Admin Acetaminophen 650 mg 06/03/18 20:28 06/04/18 09:53 Tylenol Tab* PO 650 mg Q4H PRN Administration FEVER/PAIN Albuterol 2.5 mg 06/03/18 20:28 06/08/18 11:51 Ventolin 2.5 Mg/3 Ml Neb.Paula* INH 2.5 mg Q2H PRN Administration SOB/WHEEZING Albuterol/Ipratropium 1 neb 06/04/18 07:00 06/08/18 13:13 Duoneb (Albuterol 2.5 Mg/Ipratropium 0.5 Mg) INH Not Given [id number] AWAKE [facility] Atorvastatin Calcium 80 mg 06/04/18 18:00 06/07/18 18:46 Lipitor* PO 80 mg QPM [facility]JAS Administration Clopidogrel Bisulfate 75 mg 06/04/18 09:00 06/08/18 10:04 Plavix Tab* PO 75 mg DAILY [facility] Administration Famotidine 20 mg 06/08/18 09:00 06/08/18 09:56 Pepcid Iv* IV 20 mg DAILY [facility] Administration Heparin Sodium (Porcine) 1 - 3 ml 06/07/18 06:00 06/08/18 05:35 Heparin Flush Picc/Ml/Cvc(*) FLUSH 2 ml 0600,1800 [facility] Administration Protocol Heparin Sodium (Porcine) 5,000 units 06/07/18 22:00 06/08/18 13:11 Heparin Vial(*) SUBCUT 5,000 units Q8HR [facility] Administration Hydralazine HCl 5 mg 06/03/18 20:32 06/04/18 12:10 Apresoline Iv* IV SLOW PU 5 mg Q6H PRN Administration BLOOD PRESSURE Hydroxyzine HCl 25 mg 06/04/18 08:08 06/08/18 04:07 Atarax Tab* PO 25 mg Q6H PRN Administration ANXIETY Azithromycin 500 mg/ Sodium 250 mls @ 250 mls/hr 06/04/18 09:00 06/08/18 10: 53 Chloride IVPB 250 mls/hr Q24H [facility] Administration Cefepime HCl 1 gm in 50 mls @ 100 mls/hr 06/07/18 11:00 06/08/18 10:06 Maxipime 1 Gm In Dextrose Duplex (*) IV 100 mls/hr Q12H [facility] Administration Vancomycin HCl 1,000 mg/ 250 mls @ 166.667 mls/hr 06/08/18 18:00 Sodium Chloride IVPB 0600,1800 [facility] Methylprednisolone Sodium Succinate 40 mg 06/04/18 11:00 06/08/18 09:59 Solu-Medrol 40 Mg IV 40 mg Q12H [facility] Administration Mometasone Furoate/Formoterol Fumar 2 puff 06/03/18 21:00 06/08/18 08:11 Dulera 200/5 Mdi* INH 2 puff BID [facility] Administration Morphine Sulfate 5 mg 06/08/18 04:00 06/08/18 04:07 Morphine Vial* IV 5 mg Q4H PRN Administration Pain/Tachypnea RR>24 Nicotine 10 mg 06/03/18 22:50 Nicotine Inhaler* INH Q2H PRN CRAVINGS Nicotine Polacrilex 4 mg 06/04/18 17:59 06/08/18 13:10 Nicotine Lozenge* MT 4 mg Q2H PRN Administration CRAVINGS Paroxetine HCl 20 mg 06/04/18 09:00 06/08/18 10:03 Paxil Tab* PO 20 mg DAILY [facility] Administration Pharmacy Consult 1 note 06/06/18 16:58 Vancomycin Per Pharmacy* FOLLOW UP . PRN PER PROTOCOL Pharmacy Profile Note 1 note 06/10/18 06:00 Vancomycin Trough Check FOLLOW UP 06/10/18 06:01 0600 ONE Trazodone HCl 50 mg 06/03/18 20:31 06/07/18 20:45 Desyrel Tab* PO 50 mg BEDTIME PRN Administration SLEEP Vital Signs Temp Pulse Resp BP Pulse Ox 97.8 F 89 18 149/70 93 06/08/18 15:27 06/08/18 15:27 06/08/18 15:27 06/08/18 15:27 06/08/18 15:27 O/E: Pt in NAD HEENT: PERRLA, no JVD Lungs: Diminished air entry, wheeze + CVS: S2, S2+, regular Abd: Soft, BS+ Ext: No edema Skin: No rash or bruise Neuro: No focal deficits Laboratory Results - last 24 hr 06/08/18 06/08/18 05:30 05:30 WBC 7.1 RBC 3.21 L Hgb 8.7 L Hct 27 L MCV 84 MCH 27 MCHC 32 RDW 18 H Plt Count 299 MPV 6.7 L Neut % (Auto) 85.2 H Lymph % (Auto) 6.5 L Reynolds % (Auto) 8.2 H Eos % (Auto) 0 Baso % (Auto) 0.1 Absolute Neuts (auto) 6.1 Absolute Lymphs (auto) 0.5 L Absolute Monos (auto) 0.6 Absolute Eos (auto) 0 Absolute Basos (auto) 0 Absolute Nucleated RBC 0 Nucleated RBC % 0 Sodium 135 Potassium 3.7 Chloride 100 L Carbon Dioxide 34 H Anion Gap 1 L BUN 10 Creatinine 0.54 Est GFR ( Amer) 132.5 Est GFR (Non-Af Amer) 109.5 BUN/Creatinine Ratio 18.5 Glucose 150 H Calcium 8.7 Vancomycin Trough 9.3 I/R: 78 y o f with significant smoking history, quit recently a/w worsening SOB , being treated for acute COPD exacerbation and worsening hypoxia sec to RML atlectasis, transferred to ICU for worsening oxygenation status Pt transferred to floor today She was on NC however O2 source was turned down to 0 She was significantly dyspenic She has been receiving metanebs NIPPV at night CTA showed no PE, worsening of atelectasis with no endobronchial lesions that are obvious Not stable for bronchoscopy C/w mucus clearance Will end intubated post bronch and might not be able to come off She doesnot want to be on ventilator Will c/w conservative management at this time c/w bronchodilators, steroids, abx ARF sec to hypotension, improved Normocytic anemia, stable Pt is DNR D/w Dr Vargas
[2018-06-08] MEDS: Atorvastatin* 80 MG TAB PO SCH (18:01)
--- NOTE | 2018-06-08 20:02 | RAD ---
INDICATION: Short of breath COMPARISON: Chest x-ray June 03, 2018 TECHNIQUE: An AP portable view obtained at 1933 hours is submitted. FINDINGS: Bones/Soft Tissues: There are no acute bony findings. There is a right PICC catheter in superior vena cava Cardiomediastinal: The cardiomediastinal silhouette is normal. Lungs: There is hyperinflation. There are chronic left basilar abnormalities with a tiny left-sided effusion. There is an acute infiltrate right lung base with a right-sided effusion. There is also right upper lobe infiltrate. Pleura: Bilateral effusions as noted above. Other: None IMPRESSION: PROGRESSIVE RIGHT-SIDED INFILTRATES AND PLEURAL FLUID CONSISTENT WITH ACUTE PNEUMONITIS.
[2018-06-09] MEDS: Albuterol/Ipratropium NEB.SOL* Albuterol 2.5 MG/Ipratropium 0.5 MG 3 ML INH SCH ×4 (01:31→19:39)
[2018-06-09 06:01] LABS: ABS Basophils 0 10^3/ul (0-0.2); ABS Eosinophils 0 10^3/ul (0-0.6); ABS Lymphocytes 0.6 10^3/ul (1.0-4.8); ABS Monocytes 0.8 10^3/ul (0-0.8); ABS Neutrophils 6.4 10^3/ul (1.5-7.7); ABS Nucleated RBC 0 10^3/ul; Eosinophil % 0 % (0-6); Hematocrit 28 % (35-47); Hemoglobin 9.1 g/dl (12.0-16.0); Mean Corpuscular HGB Conc 33 g/dl (31-36); Mean Corpuscular Hemoglobin 27 pg (27-31); Mean Corpuscular Volume 84 fL (80-97); Nucleated Red Blood Cells % 0; Platelet Count 317 10^3/ul (150-450); Red Blood Count 3.33 10^6/ul (4.00-5.40); Red Cell Distribution Width 18 % (10.5-15); White Blood Count 7.9 10^3/ul (3.5-10.8)
[2018-06-09] MEDS: Vancomycin(*) 1,000 MG in NS 0.9% 250 ML* 250 ML IVPB SCH ×3 (06:07→17:32)
[2018-06-09] MEDS: Heparin VIAL(*) 5000 UNITS/ML VIAL (FIVE THOUSAND) SUBCUT SCH ×3 (06:07→21:37)
[2018-06-09 06:22] LABS: EGFR Non-African American 122.5 (>60)
[2018-06-09] MEDS: Mometasone/Formoter 200/5 MDI INH SCH ×2 (08:46→19:30)
[2018-06-09] MEDS: Famotidine IV* 10 MG/ML 2 ML (20 mg) IV SCH (09:58)
[2018-06-09] MEDS: Nicotine Lozenge* 4 MG LOZENGE MT PRN ×3 (10:01→19:54)
[2018-06-09] MEDS: Azithromycin IV(*) 500 MG in NS 0.9% 250 ML* 250 ML IVPB SCH (10:04)
[2018-06-09] MEDS: PARoxetine HCL TAB* 20 MG PO SCH (10:07)
[2018-06-09] MEDS: Clopidogrel TAB* 75 MG PO SCH (10:07)
[2018-06-09] MEDS: Cefepime 1 GM in Dextrose(*) 1 GM/50 ML BAG IV SCH ×2 (11:27→23:05)
[2018-06-09] MEDS: methylPREDNISolone SOD 40 MG* 1 ML VIAL IV SCH (11:47)
--- NOTE | 2018-06-09 12:29 | PN ---
Subjective Date of Service: 06/09/18 Interval History: HOSPITALIST PROGRESS NOTE Patient seen and examined at bedside. She feels "so so" today. Dyspnea is unchanged, severe with minimal exertion. As our conversation progressed to uncomfortable topics, her dyspnea got worse and we had to cut it short. Family History: Unchanged from Admission Social History: Unchanged from Admission Past Medical History: Unchanged from Admission Objective Active Medications: Acetaminophen (Tylenol Tab*) 650 mg PO Q4H PRN PRN Reason: FEVER/PAIN Last Admin: 06/04/18 09:53 Dose: 650 mg Albuterol (Ventolin 2.5 Mg/3 Ml Neb.Paula*) 2.5 mg INH Q2H PRN PRN Reason: SOB/WHEEZING Last Admin: 06/08/18 11:51 Dose: 2.5 mg Albuterol/Ipratropium (Duoneb (Albuterol 2.5 Mg/Ipratropium 0.5 Mg)) 1 neb INH [id number] AWAKE [facility] Last Admin: 06/09/18 08:46 Dose: 1 neb Atorvastatin Calcium (Lipitor*) 80 mg PO QPM [facility] Last Admin: 06/08/18 18:01 Dose: 80 mg Clopidogrel Bisulfate (Plavix Tab*) 75 mg PO DAILY [facility] Last Admin: 06/09/18 10:07 Dose: 75 mg Famotidine (Pepcid Iv*) 20 mg IV DAILY [facility] Last Admin: 06/09/18 09:58 Dose: 20 mg Heparin Sodium (Porcine) (Heparin Flush Picc/Ml/Cvc(*)) 1 - 3 ml FLUSH 0600, 1800 [facility]; Protocol Last Admin: 06/09/18 06:10 Dose: 2 ml Heparin Sodium (Porcine) (Heparin Vial(*)) 5,000 units SUBCUT Q8HR [facility] Last Admin: 06/09/18 06:07 Dose: 5,000 units Hydralazine HCl (Apresoline Iv*) 5 mg IV SLOW PU Q6H PRN PRN Reason: BLOOD PRESSURE Last Admin: 06/04/18 12:10 Dose: 5 mg Hydroxyzine HCl (Atarax Tab*) 25 mg PO Q6H PRN PRN Reason: ANXIETY Last Admin: 06/08/18 19:13 Dose: 25 mg Azithromycin 500 mg/ Sodium (Chloride) 250 mls @ 250 mls/hr IVPB Q24H [facility] Last Admin: 06/09/18 10:04 Dose: 250 mls/hr Cefepime HCl (Maxipime 1 Gm In Dextrose Duplex (*)) 1 gm in 50 mls @ 100 mls/ hr IV Q12H [facility] Last Admin: 06/09/18 11:27 Dose: 100 mls/hr Vancomycin HCl 1,000 mg/ (Sodium Chloride) 250 mls @ 166.667 mls/hr IVPB 0600, 1800 [facility] Last Admin: 06/09/18 06:13 Dose: 166.667 mls/hr Mometasone Furoate/Formoterol Fumar (Dulera 200/5 Mdi*) 2 puff INH BID [facility] Last Admin: 06/09/18 08:46 Dose: 2 puff Morphine Sulfate (Morphine Vial*) 5 mg IV Q4H PRN PRN Reason: Pain/Tachypnea RR>24 Last Admin: 06/08/18 18:55 Dose: 5 mg Nicotine (Nicotine Inhaler*) 10 mg INH Q2H PRN PRN Reason: CRAVINGS Nicotine Polacrilex (Nicotine Lozenge*) 4 mg MT Q2H PRN PRN Reason: CRAVINGS Last Admin: 06/09/18 10:01 Dose: 4 mg Paroxetine HCl (Paxil Tab*) 20 mg PO DAILY [facility] Last Admin: 06/09/18 10:07 Dose: 20 mg Pharmacy Consult (Vancomycin Per Pharmacy*) 1 note FOLLOW UP . PRN PRN Reason: PER PROTOCOL Pharmacy Profile Note (Vancomycin Trough Check) 1 note FOLLOW UP 0600 ONE Stop: 06/10/18 06:01 Prednisone (Deltasone Tab*) 40 mg PO DAILY [facility] Trazodone HCl (Desyrel Tab*) 50 mg PO BEDTIME PRN PRN Reason: SLEEP Last Admin: 06/07/18 20:45 Dose: 50 mg Vital Signs - 8 hr 06/09/18 06/09/18 06/09/18 07:41 08:00 08:49 Temperature 98.3 F Pulse Rate 81 80 Respiratory 16 18 16 Rate Blood Pressure 148/88 (mmHg) O2 Sat by Pulse 99 98 Oximetry 06/09/18 11:27 Temperature 99.9 F Pulse Rate 42 Respiratory 20 Rate Blood Pressure 154/87 (mmHg) O2 Sat by Pulse 96 Oximetry Oxygen Devices in Use Now: Nasal Cannula - 3.5 liters Appearance: Elderly thin lady sitting up in bed, in NAD, but with pursed lip breathing during our conversation. Eyes: No Scleral Icterus Ears/Nose/Mouth/Throat: Mucous Membranes Moist Neck: Trachea Midline Respiratory: Symmetrical Chest Expansion and Respiratory Effort, - - BS+ bilaterally diminished with no added sounds Cardiovascular: RRR - Normal S1 and S2 Neurological: Alert and Oriented x 3, NL Muscle Strength and Tone Result Diagrams: 06/09/18 05:39 06/09/18 05:39 Assess/Plan/Problems-Billing Assessment: Mrs Lee is a 78yo F with PMH of COPD on home O2, HTN, HLD, PVD, DJD, GI bleed , who presented to ED with c/o dyspnea, found to have COPD exacerbation and pneumonia. - Patient Problems (1) Septic shock Comment: - Secondary to pneumonia. - Resolved. (2) Acute and chronic respiratory failure with hypoxia Comment: - Secondary to COPD exacerbation, pneumonia, atelectasis - CTA chest negative for PE - d/c Lovenox. - Continue supplemental O2. (3) Pneumonia Comment: - CxR showed left base consolidation. - Legionella and Pneumo Ags are negative, blood cultures show no growth. - Sputum culture showed normal roney. - CT chest shows RML collapse, small RUL and LLL infiltrates - Pulm consult appreciated. - This could be secondary to mucous plug, but with her significant h/o tobacco abuse, I'm concerned with malignancy. Lengthy conversation with Dr Mullen and patient - Dr Mullen feels patient would be very high risk for prolonged intubation and complications with bronch; patient not interested in any aggressive/invasive measures. Will not pursue bronchoscopy. - Continue Vanco/Cefepime #4. (4) COPD exacerbation Comment: - Secondary to pneumonia. - Continue steroids, bronchodilators. - Lengthy conversation with patient about her condition and poor prognosis. She' s aware she may no be able to return to her prior level of activity and may require SNF. We talked about the possibility of underlying malignancy causing her pneumonia/exacerbation and she verbalizes understanding. She's very clear she would not want any aggressive/invasive measures and asks me "what if you put me to sleep?". When I asked her to clarify, she tells me she knows she's not going to get much better and is interested in other options. We then talked about Hospice (she's familiar with it as her brother passed while on Hospice care). Her main goal now is to be comfortable. Will refer to palliative care. (5) PVD (peripheral vascular disease) Comment: - Continue Atorvastatin and Plavix. (6) Tobacco abuse Comment: - Nicotine inhaler PRN. (7) HLD (hyperlipidemia) Comment: - Continue Atorvastatin. (8) DVT prophylaxis Comment: - SQ heparin. (9) DNR (do not resuscitate) Status and Disposition: Inpatient. D/c plan will be SNF placement +/- Hospice.
[2018-06-09] MEDS ORDERED: Benzonatate CAP* 100 MG PO PRN (13:52)
[2018-06-09] MEDS: Atorvastatin* 80 MG TAB PO SCH (17:32)
[2018-06-09] MEDS: Morphine VIAL* 4 MG/ML VIAL (1 ml vial) IV PRN (19:32)
[2018-06-10] MEDS: Albuterol/Ipratropium NEB.SOL* Albuterol 2.5 MG/Ipratropium 0.5 MG 3 ML INH SCH ×4 (01:23→18:42)
[2018-06-10] MEDS: Heparin VIAL(*) 5000 UNITS/ML VIAL (FIVE THOUSAND) SUBCUT SCH ×3 (05:11→22:14)
[2018-06-10] MEDS ORDERED: Vancomycin Trough Check NOTE FOLLOW UP ONE (06:00)
[2018-06-10] MEDS: Vancomycin(*) 1,000 MG in NS 0.9% 250 ML* 250 ML IVPB SCH (06:01)
[2018-06-10] MEDS: Mometasone/Formoter 200/5 MDI INH SCH ×3 (06:29→19:57)
[2018-06-10] MEDS: PARoxetine HCL TAB* 20 MG PO SCH (08:54)
[2018-06-10] MEDS: predniSONE TAB* 20 MG PO SCH (08:55)
[2018-06-10] MEDS: Nicotine Lozenge* 4 MG LOZENGE MT PRN ×2 (08:55→17:27)
[2018-06-10] MEDS: Clopidogrel TAB* 75 MG PO SCH (08:55)
[2018-06-10] MEDS: Famotidine IV* 10 MG/ML 2 ML (20 mg) IV SCH (08:56)
[2018-06-10] MEDS: hydrOXYzine HCL TAB* 25 MG PO PRN (11:34)
[2018-06-10] MEDS: Morphine ORAL.SOLN 10 mg* 2 MG/ML UDC 5 ml PO PRN (11:34)
[2018-06-10] MEDS: Cefepime 1 GM in Dextrose(*) 1 GM/50 ML BAG IV SCH ×2 (12:04→22:14)
[2018-06-10] MEDS: Vancomycin(*) 1,250 MG in NS 0.9% 250 ML* 250 ML IVPB SCH (15:31)
--- NOTE | 2018-06-10 15:36 | PN ---
Subjective Date of Service: 06/10/18 Interval History: HOSPITALIST PROGRESS NOTE Patient seen and examined at bedside. She did not sleep well last night due to significant commotion at her neighbor' s bed. Feels tired, more dyspneic, anxious. Family History: Unchanged from Admission Social History: Unchanged from Admission Past Medical History: Unchanged from Admission Objective Active Medications: Acetaminophen (Tylenol Tab*) 650 mg PO Q4H PRN PRN Reason: FEVER/PAIN Last Admin: 06/04/18 09:53 Dose: 650 mg Albuterol (Ventolin 2.5 Mg/3 Ml Neb.Paula*) 2.5 mg INH Q2H PRN PRN Reason: SOB/WHEEZING Last Admin: 06/08/18 11:51 Dose: 2.5 mg Albuterol/Ipratropium (Duoneb (Albuterol 2.5 Mg/Ipratropium 0.5 Mg)) 1 neb INH [id number] AWAKE [facility] Last Admin: 06/10/18 12:22 Dose: 1 neb Atorvastatin Calcium (Lipitor*) 80 mg PO QPM [facility] Last Admin: 06/09/18 17:32 Dose: 80 mg Benzonatate (Tessalon Cap*) 100 mg PO QID PRN PRN Reason: COUGH Clopidogrel Bisulfate (Plavix Tab*) 75 mg PO DAILY [facility] Last Admin: 06/10/18 08:55 Dose: 75 mg Famotidine (Pepcid Iv*) 20 mg IV DAILY [facility] Last Admin: 06/10/18 08:56 Dose: 20 mg Heparin Sodium (Porcine) (Heparin Flush Picc/Ml/Cvc(*)) 1 - 3 ml FLUSH 0600, 1800 [facility]; Protocol Last Admin: 06/10/18 05:09 Dose: 2 ml Heparin Sodium (Porcine) (Heparin Vial(*)) 5,000 units SUBCUT Q8HR [facility] Last Admin: 06/10/18 13:42 Dose: 5,000 units Hydralazine HCl (Apresoline Iv*) 5 mg IV SLOW PU Q6H PRN PRN Reason: BLOOD PRESSURE Last Admin: 06/04/18 12:10 Dose: 5 mg Hydroxyzine HCl (Atarax Tab*) 25 mg PO Q6H PRN PRN Reason: ANXIETY Last Admin: 06/10/18 11:34 Dose: 25 mg Cefepime HCl (Maxipime 1 Gm In Dextrose Duplex (*)) 1 gm in 50 mls @ 100 mls/ hr IV Q12H [facility] Last Admin: 06/10/18 12:04 Dose: 100 mls/hr Vancomycin HCl 1,250 mg/ (Sodium Chloride) 250 mls @ 166.667 mls/hr IVPB 0400, 1600 [facility] Last Admin: 06/10/18 15:31 Dose: 166.667 mls/hr Mometasone Furoate/Formoterol Fumar (Dulera 200/5 Mdi*) 2 puff INH BID [facility] Last Admin: 06/10/18 11:00 Dose: Not Given Morphine Sulfate (Morphine Vial*) 5 mg IV Q4H PRN PRN Reason: Pain/Tachypnea RR>24 Last Admin: 06/09/18 19:32 Dose: 5 mg Morphine Sulfate (Morphine Oral.Soln 10 Mg*) 5 mg PO Q4H PRN PRN Reason: Pain/Tachypnea RR>24 Last Admin: 06/10/18 11:34 Dose: 5 mg Nicotine (Nicotine Inhaler*) 10 mg INH Q2H PRN PRN Reason: CRAVINGS Nicotine Polacrilex (Nicotine Lozenge*) 4 mg MT Q2H PRN PRN Reason: CRAVINGS Last Admin: 06/10/18 08:55 Dose: 4 mg Paroxetine HCl (Paxil Tab*) 20 mg PO DAILY [facility] Last Admin: 06/10/18 08:54 Dose: 20 mg Pharmacy Consult (Vancomycin Per Pharmacy*) 1 note FOLLOW UP . PRN PRN Reason: PER PROTOCOL Pharmacy Profile Note (Vancomycin Trough Check) 1 note FOLLOW UP 1530 ONE Stop: 06/12/18 15:31 Prednisone (Deltasone Tab*) 40 mg PO DAILY [facility] Last Admin: 06/10/18 08:55 Dose: 40 mg Trazodone HCl (Desyrel Tab*) 50 mg PO BEDTIME PRN PRN Reason: SLEEP Last Admin: 06/07/18 20:45 Dose: 50 mg Vital Signs - 8 hr 06/10/18 06/10/18 06/10/18 07:50 11:07 11:34 Temperature 97.2 F Pulse Rate 80 Respiratory 18 20 36 Rate Blood Pressure 158/80 (mmHg) O2 Sat by Pulse 96 Oximetry 06/10/18 06/10/18 12:25 13:41 Temperature Pulse Rate 88 Respiratory 18 20 Rate Blood Pressure (mmHg) O2 Sat by Pulse 95 Oximetry Oxygen Devices in Use Now: Nasal Cannula - 3 liters Appearance: Pleasant lady lying in bed in NAD, but anxious Eyes: No Scleral Icterus Ears/Nose/Mouth/Throat: Mucous Membranes Moist Neck: Trachea Midline Respiratory: Symmetrical Chest Expansion and Respiratory Effort, - - BS+ bilaterally diminished with no added sounds Cardiovascular: RRR - Normal S1 and S2 Neurological: Alert and Oriented x 3, NL Muscle Strength and Tone Result Diagrams: 06/09/18 05:39 06/09/18 05:39 Assess/Plan/Problems-Billing Assessment: Mrs Lee is a 78yo F with PMH of COPD on home O2, HTN, HLD, PVD, DJD, GI bleed , who presented to ED with c/o dyspnea, found to have COPD exacerbation and pneumonia. - Patient Problems (1) Septic shock Comment: - Secondary to pneumonia. - Resolved. (2) Acute and chronic respiratory failure with hypoxia Comment: - Secondary to COPD exacerbation, pneumonia, atelectasis - CTA chest negative for PE - d/c Lovenox. - Continue supplemental O2. (3) Pneumonia Comment: - CxR showed left base consolidation. - Legionella and Pneumo Ags are negative, blood cultures show no growth. - Sputum culture showed normal roney. - CT chest shows RML collapse, small RUL and LLL infiltrates - Pulm consult appreciated. - This could be secondary to mucous plug, but with her significant h/o tobacco abuse, I'm concerned with malignancy. Lengthy conversation with Dr Mullen and patient - Dr Mullen feels patient would be very high risk for prolonged intubation and complications with bronch; patient not interested in any aggressive/invasive measures. Will not pursue bronchoscopy. - Continue Vanco/Cefepime #5. (4) COPD exacerbation Comment: - Secondary to pneumonia. - Continue steroids, bronchodilators. - Lengthy conversation with patient about her condition and poor prognosis. She' s aware she may no be able to return to her prior level of activity and may require SNF. We talked about the possibility of underlying malignancy causing her pneumonia/exacerbation and she verbalizes understanding. She's very clear she would not want any aggressive/invasive measures and asks me "what if you put me to sleep?". When I asked her to clarify, she tells me she knows she's not going to get much better and is interested in other options. We then talked about Hospice (she's familiar with it as her brother passed while on Hospice care). Her main goal now is to be comfortable. Will refer to palliative care. (5) PVD (peripheral vascular disease) Comment: - Continue Atorvastatin and Plavix. (6) Tobacco abuse Comment: - Nicotine inhaler PRN. (7) HLD (hyperlipidemia) Comment: - Continue Atorvastatin. (8) DVT prophylaxis Comment: - SQ heparin. (9) DNR (do not resuscitate) Status and Disposition: Inpatient. D/c plan will be SNF placement +/- Hospice.
[2018-06-10] MEDS: Atorvastatin* 80 MG TAB PO SCH (17:27)
[2018-06-11] MEDS: Albuterol/Ipratropium NEB.SOL* Albuterol 2.5 MG/Ipratropium 0.5 MG 3 ML INH SCH ×3 (00:48→12:23)
[2018-06-11] MEDS: Vancomycin(*) 1,250 MG in NS 0.9% 250 ML* 250 ML IVPB SCH (03:43)
[2018-06-11] MEDS: Heparin VIAL(*) 5000 UNITS/ML VIAL (FIVE THOUSAND) SUBCUT SCH ×2 (05:19→13:31)
[2018-06-11 05:50] LABS: EGFR Non-African American 114.3 (>60)
[2018-06-11] MEDS: Mometasone/Formoter 200/5 MDI INH SCH ×2 (07:23→07:27)
[2018-06-11] MEDS: predniSONE TAB* 20 MG PO SCH (08:09)
[2018-06-11] MEDS: Clopidogrel TAB* 75 MG PO SCH (08:09)
[2018-06-11] MEDS: Famotidine IV* 10 MG/ML 2 ML (20 mg) IV SCH (08:09)
[2018-06-11] MEDS: PARoxetine HCL TAB* 20 MG PO SCH (08:09)
--- NOTE | 2018-06-11 09:06 | PN ---
Subjective Date of Service: 06/11/18 Interval History: HOSPITALIST PROGRESS NOTE Patient seen and examined at bedside. Care reviewed and d/w Teja Jean RN. She offers no new complaints today, breathing is unchanged. Family History: Unchanged from Admission Social History: Unchanged from Admission Past Medical History: Unchanged from Admission Objective Active Medications: Acetaminophen (Tylenol Tab*) 650 mg PO Q4H PRN PRN Reason: FEVER/PAIN Last Admin: 06/04/18 09:53 Dose: 650 mg Albuterol (Ventolin 2.5 Mg/3 Ml Neb.Paula*) 2.5 mg INH Q2H PRN PRN Reason: SOB/WHEEZING Last Admin: 06/08/18 11:51 Dose: 2.5 mg Albuterol/Ipratropium (Duoneb (Albuterol 2.5 Mg/Ipratropium 0.5 Mg)) 1 neb INH [id number] [facility]WA[facility] Last Admin: 06/11/18 07:20 Dose: 1 neb Atorvastatin Calcium (Lipitor*) 80 mg PO QPM ROJAS Last Admin: 06/10/18 17:27 Dose: 80 mg Benzonatate (Tessalon Cap*) 100 mg PO QID PRN PRN Reason: COUGH Clopidogrel Bisulfate (Plavix Tab*) 75 mg PO DAILY ROJAS Last Admin: 06/11/18 08:09 Dose: 75 mg Famotidine (Pepcid Iv*) 20 mg IV DAILY ROJAS Last Admin: 06/11/18 08:09 Dose: 20 mg Heparin Sodium (Porcine) (Heparin Flush Picc/Ml/Cvc(*)) 1 - 3 ml FLUSH 0600, 1800 ROJAS; Protocol Last Admin: 06/11/18 05:19 Dose: 2 ml Heparin Sodium (Porcine) (Heparin Vial(*)) 5,000 units SUBCUT Q8HR ROJAS Last Admin: 06/11/18 05:19 Dose: 5,000 units Hydralazine HCl (Apresoline Iv*) 5 mg IV SLOW PU Q6H PRN PRN Reason: BLOOD PRESSURE Last Admin: 06/04/18 12:10 Dose: 5 mg Hydroxyzine HCl (Atarax Tab*) 25 mg PO Q6H PRN PRN Reason: ANXIETY Last Admin: 06/10/18 11:34 Dose: 25 mg Cefepime HCl (Maxipime 1 Gm In Dextrose Duplex (*)) 1 gm in 50 mls @ 100 mls/ hr IV Q12H [facility] Last Admin: 06/10/18 22:14 Dose: 100 mls/hr Vancomycin HCl 1,250 mg/ (Sodium Chloride) 250 mls @ 166.667 mls/hr IVPB 0400, 1600 [facility] Last Admin: 06/11/18 03:43 Dose: 166.667 mls/hr Mometasone Furoate/Formoterol Fumar (Dulera 200/5 Mdi*) 2 puff INH BID [facility] Last Admin: 06/11/18 07:27 Dose: 2 puff Morphine Sulfate (Morphine Vial*) 5 mg IV Q4H PRN PRN Reason: Pain/Tachypnea RR>24 Last Admin: 06/09/18 19:32 Dose: 5 mg Morphine Sulfate (Morphine Oral.Soln 10 Mg*) 5 mg PO Q4H PRN PRN Reason: Pain/Tachypnea RR>24 Last Admin: 06/10/18 11:34 Dose: 5 mg Nicotine (Nicotine Inhaler*) 10 mg INH Q2H PRN PRN Reason: CRAVINGS Nicotine Polacrilex (Nicotine Lozenge*) 4 mg MT Q2H PRN PRN Reason: CRAVINGS Last Admin: 06/10/18 17:27 Dose: 4 mg Paroxetine HCl (Paxil Tab*) 20 mg PO DAILY [facility] Last Admin: 06/11/18 08:09 Dose: 20 mg Pharmacy Consult (Vancomycin Per Pharmacy*) 1 note FOLLOW UP . PRN PRN Reason: PER PROTOCOL Pharmacy Profile Note (Vancomycin Trough Check) 1 note FOLLOW UP 1530 ONE Stop: 06/12/18 15:31 Prednisone (Deltasone Tab*) 40 mg PO DAILY [facility] Last Admin: 06/11/18 08:09 Dose: 40 mg Trazodone HCl (Desyrel Tab*) 50 mg PO BEDTIME PRN PRN Reason: SLEEP Last Admin: 06/07/18 20:45 Dose: 50 mg Vital Signs - 8 hr 06/11/1818 07:24 07:55 Temperature 97.5 F Pulse Rate 79 81 Respiratory 17 16 Rate Blood Pressure 148/81 (mmHg) O2 Sat by Pulse 94 94 Oximetry Oxygen Devices in Use Now: Nasal Cannula - 3 liters Appearance: Elderly thin lady sitting up in bed in NAD. Eyes: No Scleral Icterus Ears/Nose/Mouth/Throat: Mucous Membranes Moist Neck: Trachea Midline Respiratory: Symmetrical Chest Expansion and Respiratory Effort, - - BS+ bilaterally diminished with no added sounds Cardiovascular: RRR - Normal S1 and S2 Neurological: Alert and Oriented x 3, NL Muscle Strength and Tone Result Diagrams: 06/09/18 05:39 06/11/18 05:26 Assess/Plan/Problems-Billing Assessment: Mrs Lee is a 78yo F with PMH of COPD on home O2, HTN, HLD, PVD, DJD, GI bleed , who presented to ED with c/o dyspnea, found to have COPD exacerbation and pneumonia. - Patient Problems (1) Septic shock Comment: - Secondary to pneumonia. - Resolved. (2) Acute and chronic respiratory failure with hypoxia Comment: - Secondary to COPD exacerbation, pneumonia, atelectasis - CTA chest negative for PE - d/c Lovenox. - Continue supplemental O2. (3) Pneumonia Comment: - CxR showed left base consolidation. - Legionella and Pneumo Ags are negative, blood cultures show no growth. - Sputum culture showed normal roney. - CT chest shows RML collapse, small RUL and LLL infiltrates - Pulm consult appreciated. - This could be secondary to mucous plug, but with her significant h/o tobacco abuse, I'm concerned with malignancy. Lengthy conversation with Dr Mullen and patient - Dr Mullen feels patient would be very high risk for prolonged intubation and complications with bronch; patient not interested in any aggressive/invasive measures. Will not pursue bronchoscopy. - Continue Vanco/Cefepime #6/7. (4) COPD exacerbation Comment: - Secondary to pneumonia. - Continue steroids, bronchodilators. - Lengthy conversation with patient about her condition and poor prognosis. She' s aware she may no be able to return to her prior level of activity and may require SNF. We talked about the possibility of underlying malignancy causing her pneumonia/exacerbation and she verbalizes understanding. She's very clear she would not want any aggressive/invasive measures and asks me "what if you put me to sleep?". When I asked her to clarify, she tells me she knows she's not going to get much better and is interested in other options. We then talked about Hospice (she's familiar with it as her brother passed while on Hospice care). Her main goal now is to be comfortable. Refered to palliative care. (5) PVD (peripheral vascular disease) Comment: - Continue Atorvastatin and Plavix. (6) Tobacco abuse Comment: - Nicotine inhaler PRN. (7) HLD (hyperlipidemia) Comment: - Continue Atorvastatin. (8) DVT prophylaxis Comment: - SQ heparin. (9) DNR (do not resuscitate) (10) Physical deconditioning Comment: - PT evaluation. Status and Disposition: Inpatient. D/c plan will be SNF placement +/- Hospice.
[2018-06-11] MEDS: Cefepime 1 GM in Dextrose(*) 1 GM/50 ML BAG IV SCH (10:51)
[2018-06-11] MEDS: Nicotine Lozenge* 4 MG LOZENGE MT PRN (10:51)
[2018-06-11] MEDS: hydrOXYzine HCL TAB* 25 MG PO PRN (12:57)
[2018-06-11] MEDS: Morphine ORAL.SOLN 10 mg* 2 MG/ML UDC 5 ml PO PRN (13:30)
--- NOTE | 2018-06-11 15:11 | DS ---
CC: Dr. Apollo Jasso; [facility] DISCHARGE SUMMARY: DATE OF ADMISSION: 06/03/18 DATE OF DISCHARGE: 06/11/18 PRIMARY CARE PROVIDER: Dr. Apollo Jasso DISCHARGE DIAGNOSES: 1. Septic shock. 2. Community-acquired pneumonia. 3. Chronic obstructive pulmonary disease exacerbation. 4. Acute-on chronic hypoxemic respiratory failure secondary to the above. 5. Right middle and lower lobe collapse. SECONDARY DIAGNOSES: 1. Chronic obstructive pulmonary disease, on home O2. 2. Hypertension. 3. Hyperlipidemia. 4. Peripheral vascular disease. 5. Degenerative joint disease. 6. Gastrointestinal bleed. MEDICATIONS: 1. Acetaminophen 650 mg p.o. q.4 hours p.r.n. pain or fever. 2. Albuterol HFA 2 puffs inhale q. 4 hours shortness of breath. 3. Albuterol/ipratropium one nebulize q. 6 hours while awake. 4. Atorvastatin 80 mg p.o. at bedtime. 5. Benzonatate 100 mg p.o. q.i.d. p.r.n. cough. 6. Plavix 75 mg p.o. daily. 7. Cyanocobalamin 1000 mcg p.o. daily. 8. Hydroxyzine 25 mg p.o. q. 6 hours p.r.n. anxiety. 9. Lisinopril 10 mg p.o. at bedtime. 10. Mometasone and formoterol 200/5 two puffs inhale b.i.d. 11. Morphine oral solution 5 mg sublingual q. 4 hours p.r.n. pain or tachypnea with respiratory rate greater than 24. 12. Nicotine inhaler 10 mg inhale q. 2 hours p.r.n. cravings. 13. Nicotine lozenge 4 mg oral q. 2 hours p.r.n. cravings. 14. Paroxetine 10 mg p.o. daily. 15. Prednisone taper as follows: 40 mg p.o. daily for 3 days, 30 mg for 3 days, 20 mg for 3 days, 1 0 mg for 3 days and 5 mg for 3 days and stop. 16. Trazodone 50 to 100 mg p.o. at bedtime. HOSPITAL COURSE: Ms. Jesus Frias is a 78-year-old lady with past medical history as stated above th at presented to the emergency room complaining of cough and progressive shortness of breath. For [facility] details about her presentation, refer to her history and physical. She was found to have a COPD ex acerbation and pneumonia. She was admitted, started on steroids, antibiotics, and CT of the chest, mo derate centrilobular emphysematous change, right middle lobe collapse, small right upper and left low er lobe infiltrates. The patient had further deterioration of her condition requiring transfer to [facility] intensive care unit. She became more dyspneic, required more oxygen, and was hypotensive requiring pressors compatible with septic shock. Transthoracic echocardiogram showed ejection fraction greater than 65%, global wall motion within nor mal limits, moderate MR, moderate TR, moderate pulmonary hypertension. The patient had progressive improvement of her respiratory status, but initially there was concern fo r possibly associated PE, so she underwent a CTA of the chest that was negative for PE and showed dev elopment of complete atelectasis of the right lower lobe with patchy airspace disease of the right up per and middle lobe. The patient was seen by industrial equipment wirer who agreed with our management and initially the plan was for p ossible bronchoscopy as the patient is a heavy smoker and there was concern that this right middle lo wer lung collapse could be secondary to malignancy, not only mucus plug, but after reviewing the risk with the industrial equipment wirer, the patient is not interested in any aggressive or invasive measures, especi ally because Pulmonology is concerned that if she were intubated, she may be a very difficult extubat ion. The patient had improvement in her symptoms and although she does not have anymore wheezing, her infe ction seems to be resolved. She has very poor respiratory capacity and becomes dyspneic with minimal exertion. The patient has elected to pursue fpc facility treatment and she is also inte rested in palliative care. She is rightly stable for discharge to [facility] [place] today and she already has a referral for a palliativ e care program. The patient understands that this pneumonia may be postobstructive pneumonia secondary to malignancy. The patient understands, but she is very clear that she is not interested in any aggressive measure s or invasive ones. PHYSICAL EXAMINATION: Vital Signs: Temperature 97.5, heart rate is 88, respiratory rate is 20, oxyg en saturation 93% on 3 L, blood pressure is 148/81. General: The patient is a thin, elderly lady, ly ing in bed in no acute distress. CVS: Normal S1, S2 with regular rate and rhythm. Chest: Breath so unds are mildly diminished with no added sounds. Neuro: Alert and oriented x3, able to move all 4 e xtremities. DIET: Regular diet. ACTIVITY: As tolerated. DISPOSITION: [facility] [place]. STATUS IN THE HOSPITAL: Inpatient. Please keep in mind this is a summarized version of this patient's hospital stay. If you need more in formation, please feel free to call me at [phone] or please obtain full medical records. TIME SPENT: Approximately 45 minutes was spent to complete this discharge. [id number]/CPS #: [id number]
[2018-06-11 15:22] VITALS: BP 144/87
[2018-06-12] MEDS ORDERED: Vancomycin Trough Check NOTE FOLLOW UP ONE (15:30)
== END 2018-06-11 16:00 | DRG 193 ==
LOC: ED 17:46 → MED 20:22 → ICU 06-05 15:29 → MEDTELE 06-07 17:56
PROVIDERS: ADMIT Hospitalist; ATTEND Internal Medicine
PROC: 5A09357 Assistance with Respiratory Ventilation, Less than 24 Consecutive Hours, Continuous Positive Airway Pressure (ICD-10-PCS; principal; 2018-06-05)
PROC: 02HV33Z Insertion of Infusion Device into Superior Vena Cava, Percutaneous Approach (ICD-10-PCS; 2018-06-11)
DX: J18.9 Pneumonia, unspecified organism (principal); A41.9 Sepsis, unspecified organism; R65.21 Severe sepsis with septic shock; J96.21 Acute and chronic respiratory failure with hypoxia; J44.0 Chronic obstructive pulmonary disease with (acute) lower respiratory infection; E87.1 Hypo-osmolality and hyponatremia; J98.11 Atelectasis; J44.1 Chronic obstructive pulmonary disease with (acute) exacerbation; I25.10 Atherosclerotic heart disease of native coronary artery without angina pectoris; I10 Essential (primary) hypertension; I73.9 Peripheral vascular disease, unspecified; F41.9 Anxiety disorder, unspecified; F32.9 Major depressive disorder, single episode, unspecified; F17.210 Nicotine dependence, cigarettes, uncomplicated; E78.5 Hyperlipidemia, unspecified; D64.9 Anemia, unspecified; Z66 Do not resuscitate; I08.1 Rheumatic disorders of both mitral and tricuspid valves; I27.20 Pulmonary hypertension, unspecified; Z91.030 Bee allergy status; Z82.49 Family history of ischemic heart disease and other diseases of the circulatory system; Z91.018 Allergy to other foods; Z79.01 Long term (current) use of anticoagulants; Z79.52 Long term (current) use of systemic steroids; Z72.89 Other problems related to lifestyle; Z99.81 Dependence on supplemental oxygen; Z95.828 Presence of other vascular implants and grafts; Z90.710 Acquired absence of both cervix and uterus; Z85.118 Personal history of other malignant neoplasm of bronchus and lung; Z98.1 Arthrodesis status
CPT/HCPCS: 36415; 36600; 71045; 71250; 71275; 80048; 80053; 80202; 82565; 82803; 83605; 83880; 84484; 84520; 85025; 85610; 86140; 87040; 87070; 87205; 87641; 87899; 93005; 93306; 94640; 94660; 94667; 94668; 99284; 99406; A9270-GY; C1751; J0360; J0456; J0692; J0696; J1644; J1650; J2270; J2543; J2920; J2930; J3370; J7512; Q9967

== ENCOUNTER 2018-07-05 14:24 | Emergency (ER) | payer MEDICARE ==
[2018-07-05 14:34] VITALS: BP 136/70
--- NOTE | 2018-07-05 15:19 | UC ---
Respiratory Complaint HPI - HPI Summary HPI Summary: This pt is a 78 y/o female presenting to [facility] c/o SOB and coughing. She describes productive cough with dark yellow and clear sputum. She also c/o chills, wheezing. Pt states about 1 month ago she [place] [facility] [place]. She states she was placed in rehab after [place] [facility]. She was discharged from the care home about 2 weeks ago (06/23/18). Denies fever, swelling in LE, chest pain. Today she was supposed to have a follow up appointment with her PCP (Dr. Jasso) but he called and canceled. Pt has hx of COPD for which she uses inhalers and nebulizers. Denies hx of CHF. NKDA. - History of Current Complaint Chief Complaint: UCRespiratory Stated Complaint: CONGESTED Time Seen by Provider: 07/05/18 15:12 Hx Obtained From: Patient Hx Last Menstrual Period: na Onset/Duration: Lasting Days, Still Present Timing: Constant Pain Intensity: 0 Character: Cough: Productive, Sputum Description: - dark yellow and clear Aggravating Factors: Nothing Alleviating Factors: Nothing Associated Signs And Symptoms: Positive: Chills, Wheezing, Nasal Congestion. Negative: Fever, Pleuritic Chest Pain, Calf Pain, Calf Swelling, Edema - Allergies/Home Medications Allergies/Adverse Reactions: Allergies Allergy/AdvReac Type Severity Reaction Status Date / Time bee venom protein (honey bee) Allergy Severe anaphylaxis Verified 07/05/18 14:35 venom-honey bee Allergy Unknown Verified 07/05/18 14:35 Reaction Details PMH/Surg Hx/FS Hx/Imm Hx Cardiovascular History: Hypertension Respiratory History: COPD - Surgical History Surgical History: Yes Surgery Procedure, Year, and Place: T&A. Hysterectomy. finger right hand - Family History Known Family History: Positive: Hypertension Negative: Renal Disease - Social History Alcohol Use: None Alcohol Amount: 6 BEERS PER DAY Substance Use Type: None Smoking Status (MU): Former Smoker Type: Cigarettes Amount Used/How Often: NON FILTERS 1 PPD X 50 YEARS DOWN TO 3 CIGARETTES PER DAY Length of Time of Smoking/Using Tobacco: 60 years Have You Smoked in the Last Year: Yes When Did the Patient Quit Smoking/Using Tobacco: 05/2018 - Immunization History Most Recent Influenza Vaccination: never Most Recent Pneumonia Vaccination: never Review of Systems Constitutional: Chills, Other - NEG: fever Skin: Negative Eyes: Negative ENT: Negative Respiratory: Shortness Of Breath, Cough Cardiovascular: Negative Gastrointestinal: Negative Genitourinary: Negative Motor: Negative Neurovascular: Negative Musculoskeletal: Negative Neurological: Negative Psychological: Negative All Other Systems Reviewed And Are Negative: Yes Physical Exam - Summary Physical Exam Summary: General: well-appearing, no pain distress Skin: warm, color reflects adequate perfusion, dry Head: normal Eyes: EOMI, LA NENA ENT: normal Neck: supple, nontender Respiratory: breath sounds present. Occasional wheeze. Cardiovascular: RRR Abdomen: soft, nontender Bowel: present Musculoskeletal: normal, strength/ROM intact Neurological: normal, sensory/motor intact, A&O x3 Psychological: affect/mood appropriate Triage Information Reviewed: Yes Vital Signs: Initial Vital Signs Temp 97.6 F 07/05/18 14:29 Pulse 97 07/05/18 14:29 Resp 22 07/05/18 14:29 BP 136/70 07/05/18 14:29 Pulse Ox 95 07/05/18 14:29 Vital Signs Reviewed: Yes UC Diagnostic Evaluation - Laboratory O2 Sat by Pulse Oximetry: 95 - Radiology Xray Interpretation: Positive (See Comments) - Chest XR IMPRESSION: 1. New small left upper lobe infiltrate. 2. COPD. Dr. Mahajan has reviewed this radiology report. Radiology Interpretation Completed By: Radiologist Respiratory Course/Dx - Course Course Of Treatment: Medications reviewed. DISCUSSED RESULTS OF CXR. RX LEVAQUIN 750MG PO QD X 5 DAYS AND PREDNISONE 40MG PO QD X 5 DAYS. F/U PMD. DISCUSSED GOING TO THE EMERGENCY DEPARTMENT FOR ANY WORSENING. - Differential Dx/Diagnosis Provider Diagnoses: PNEUMONIA. COPD Discharge - Sign-Out/Discharge Documenting (check all that apply): Patient Departure - discharge All imaging exams completed and their final reports reviewed: Yes - Discharge Plan Condition: Stable Disposition: HOME Prescriptions: Levofloxacin TAB* [Levaquin TAB*] 750 mg PO DAILY #5 tab predniSONE TAB* [Deltasone 20 MG TAB*] 40 mg PO DAILY #10 tab Patient Education Materials: COPD (Chronic Obstructive Pulmonary Disease) (ED) , Community Acquired Pneumonia (ED) Referrals: Apollo Jasso MD [Medical Doctor] - Additional Instructions: FOLLOW UP WITH YOUR DOCTOR IN THE NEXT 1-3 DAYS. GO TO THE EMERGENCY DEPARTMENT FOR ANY WORSENING OF YOUR CONDITION; SHORTNESS OF BREATH, FEVER, YOU FEEL ILL OR QUESTIONS OR CONCERNS. - Billing Disposition and Condition Condition: STABLE Disposition: Home - Attestation Statements Document Initiated by Sandor: Yes Documenting Scribe: Manisha Gan Provider For Whom Kassandrae is Documenting (Include Credential): Russell Mahajan MD Scribe Attestation: IManisha, scribed for Russell Mahajan MD on 07/05/18 at 1746. Scribe Documentation Reviewed: Yes Provider Attestation: The documentation as recorded by the chelaibManisha quintero accurately reflects the service I personally performed and the decisions made by me, Russell Mahajan MD
--- NOTE | 2018-07-05 15:56 | RAD ---
INDICATION: Shortness of breath. COMPARISON: Comparison is made with a prior chest x-ray study from June 08, 2018 correlation is also made with a CT angiogram of the chest from June 07, 2018. TECHNIQUE: Dual-energy PA and lateral views of the chest were obtained. FINDINGS: The heart is within normal limits in size. Mediastinal and hilar contours appear within normal limits. The lungs are hyperinflated consistent with chronic obstructive pulmonary disease. There is a new infiltrate present in the anterior aspect of the left lung which appears to be in the left upper lobe and projects over the left lateral heart border on the PA view. No pleural effusion is seen. IMPRESSION: 1. NEW SMALL LEFT UPPER LOBE INFILTRATE. 2. COPD.
== END 2018-07-05 16:25 | disposition home or self-care (01) ==
LOC: UCEAST 14:24
DX: J18.9 Pneumonia, unspecified organism (principal); J44.9 Chronic obstructive pulmonary disease, unspecified; Z91.030 Bee allergy status; Z87.891 Personal history of nicotine dependence
CPT/HCPCS: 71046; 99212; G0463

== ENCOUNTER 2019-07-15 12:59 | Emergency (ER) | payer MEDICARE, OTHER ==
[2019-07-15] MEDS ORDERED: Albuterol/Ipratropium NEB.SOL* Albuterol 2.5 MG/Ipratropium 0.5 MG 3 ML INH ONE (13:05)
[2019-07-15] MEDS ORDERED: methylPREDNISolone 125 MG* 2 ML VIAL IV ONE (13:05)
--- NOTE | 2019-07-15 13:29 | ED ---
Shortness of Breath - HPI Summary HPI Summary: This patient is a 79 year old F presenting to ED with a chief complaint of gradually worsening shortness of breath since last night. The shortness of breath is alleviated by albuterol. She had a syncopal episode this morning, from which her great-granddaughter found her on the floor. 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 She says she has no nausea, vomiting, diarrhea, fever, headache, neck pain, or back pain. The patient has a history of COPD and a history of smoking; she quit a year ago. Her O2 saturation was in the 80s upon EMSs arrival to the scene, and she was placed on nasal cannula 4L O2 and given an Albuterol treatment that has improved her symptoms. Currently, her symptoms are rated 0/10 in severity. Medications reviewed. Allergies noted. - History of Current Complaint Chief Complaint: EDShortnessOfBreath Hx Obtained From: Patient Onset/Duration: Lasting Hours, Still Present Current Severity: Moderate Dyspnea At: Rest Alleviating Factors: Bronchodilators - Albuterol treatment by EMS Associated Signs & Symptoms: Cough (Productive) - white sputum, Chest Pain Unrelated to Cough - Chest pain resolved prior to arrival, Chills, Dizzy - Allergy/Home Medications Allergies/Adverse Reactions: Allergies Allergy/AdvReac Type Severity Reaction Status Date / Time bee venom protein (honey bee) Allergy Severe anaphylaxis Verified 07/05/18 14:35 venom-honey bee Allergy Unknown Verified 07/05/18 14:35 Reaction Details Home Medications: Home Medications Albuterol Sulfate [Albuterol Sulfate Hfa] 2 puff INH Q4H PRN 07/15/19 [History Confirmed 07/15/19] Clopidogrel TAB* [Plavix TAB*] 75 mg PO DAILY 07/15/19 [History Confirmed ] Multivitamin [Multiple Vitamins] 1 tab PO DAILY 07/15/19 [History Confirmed ] Tiotropium CAP.INH (NF) [Spiriva CAP.INH*] 1 dose INH DAILY 07/15/19 [History Confirmed 07/15/19] PMH/Surg Hx/FS Hx/Imm Hx Endocrine/Hematology History: Denies: Hx Diabetes, Hx Thyroid Disease Cardiovascular History: Reports: Hx Coronary Artery Disease - LEFT CAROTID ENDARTERECTOMY-2014- LEFT-JUAN, Hx Hypertension - does not take her pills, Hx Peripheral Vascular Disease - RIGHT LEG SURGERY- VASCULAR- 3 YEARS AGO-JUAN Denies: Hx Pacemaker/ICD Respiratory History: Reports: Hx Chronic Obstructive Pulmonary Disease (COPD) Denies: Hx Asthma Comment Only: Other Respiratory Problems/Disorders - COPD GI History: Denies: Hx Ulcer History: Denies: Hx Renal Disease Sensory History: Reports: Hx Cataracts - BILATERAL, Hx Contacts or Glasses Denies: Hx Legally Blind, Hx Deafness, Hx Hearing Aid Opthamlomology History: Reports: Hx Cataracts - BILATERAL, Hx Contacts or Glasses Denies: Hx Legally Blind Psychiatric History: Reports: Hx Anxiety - ON MEDICATION FOR, Hx Depression - ON MEDICATION FOR Denies: Hx Panic Disorder - Cancer History Hx Chemotherapy: No Hx Radiation Therapy: No - Surgical History Surgery Procedure, Year, and Place: T&A. Hysterectomy. finger right hand Hx Anesthesia Reactions: No Infectious Disease History: No Infectious Disease History: Reports: Hx Shingles Denies: Hx Hepatitis, Hx Human Immunodeficiency Virus (HIV), Traveled Outside the [place] in Last 30 Days - Family History Known Family History: Positive: Hypertension Negative: Renal Disease - Social History Alcohol Use: Daily Alcohol Amount: beer or wine Hx Substance Use: No Substance Use Type: Reports: None Hx Tobacco Use: Yes Smoking Status (MU): Former Smoker Type: Cigarettes Amount Used/How Often: NON FILTERS 1 PPD X 50 YEARS DOWN TO 3 CIGARETTES PER DAY Length of Time of Smoking/Using Tobacco: 60 years Have You Smoked in the Last Year: Yes Review of Systems Positive: Chills. 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 Negative: Headache All Other Systems Reviewed And Are Negative: Yes Physical Exam - Summary Physical Exam Summary: VITAL SIGNS: Reviewed. GENERAL: Patient is a well-developed and nourished female who is lying comfortable in the stretcher. Patient is not in any acute respiratory distress. HEAD AND FACE: No signs of trauma. No ecchymosis, hematomas or skull depressions. No sinus tenderness. EYES: PERRLA, EOMI x 2, No injected conjunctiva, no nystagmus. EARS: Hearing grossly intact. Ear canals and tympanic membranes are within normal limits. MOUTH: Oropharynx within normal limits. NECK: Supple, trachea is midline, no adenopathy, no JVD, no carotid bruit, no c- spine tenderness, neck with full ROM. CHEST: Symmetric, no tenderness at palpation. LUNGS: Diffuse wheezing. Bilateral crackles at the bases of the lungs. CVS: Regular rate and rhythm, S1 and S2 present, no murmurs or gallops appreciated. ABDOMEN: Soft, non-tender. No signs of distention. No rebound, no guarding, and no masses palpated. Bowel sounds are normal. EXTREMITIES: FROM in all major joints, no edema, no cyanosis or clubbing. NEURO: Alert and oriented x 3. No acute neurological deficits. Speech is normal and follows commands. SKIN: Dry and warm. Triage Information Reviewed: Yes Vital Signs On Initial Exam: Initial Vitals Temp Pulse Resp BP Pulse Ox 97.7 F 82 20 129/63 97 07/15/19 13:05 07/15/19 13:05 07/15/19 13:05 07/15/19 13:05 07/15/19 13:05 Vital Signs Reviewed: Yes Diagnostics - Vital Signs Vital Signs Temp Pulse Resp BP Pulse Ox 07/15/19 13:18 82 19 107/65 98 07/15/19 13:17 83 21 98 07/15/19 13:05 97.7 F 82 20 129/63 97 - Laboratory Result Diagrams: 07/15/19 13:27 07/15/19 13:27 Lab Statement: Any lab studies that have been ordered have been reviewed, and results considered in the medical decision making process. - Radiology CXR Radiology Interpretation Completed By: Radiologist - Impression: Hyperinflated lung roldan with no definite pneumonia. ED physician has reviewed this report. - EKG 1342 Cardiac Rate: NL - 81 bpm EKG Rhythm: Sinus Rhythm ST Segment: Normal EKG Comparison: No Significant Change - Similar to previous taken on 06/03/18. Summary of EKG Findings: EKG at 1342 shows normal sinus rhythm with a rate of [address] elevations. Re-Evaluation - Re-Evaluation First Eval Re-Evaluation Time: 15:17 Change: Improved Comment: She is 97% O2 sat on 3L, which is her usual. We discussed all results and plan for discharge. Course/Dx - Course Assessment/Plan: Patient is a 79 y/o F with hx of COPD with chief complaint of shortness of breath, dizziness, and syncopal episode this morning, accopmanied by chest pain last night that has since subsided with improvement of symptoms following an Albuterol treatment in the ambulance. Blood work without any significant abnormality except for the bases of 14.4, hemoglobin of 11.4, sodium of 134, chloride of 98, glucose of 143, CRP of 113, and BNP of 131. ABG shows a pH of 7.44, pCO2 of 40, pO2 of 85, O2 sat is 98.8 on 3 L of oxygen which is her baseline. In the ED course, the patient was given Albuterol and Solu-Medrol. After these medications the patients symptoms have significantly improved. Chest x-ray shows no pneumonia. Therefore, there is no need for antibiotics at this time. Since the patient is feeling better she is saturating between 96-97% and her 3 L of oxygen the patient can be safely discharged home with follow-up with PCP. Patient is hemodynamically stable alert oriented 3. - Diagnoses Provider Diagnoses: COPD exacerbation Discharge ED - Sign-Out/Discharge Documenting (check all that apply): Patient Departure - Discharged Patient Received Moderate/Deep Sedation with Procedure: No - Discharge Plan Condition: Stable Disposition: HOME Prescriptions: predniSONE TAB* [Deltasone 20 MG TAB*] 40 mg PO DAILY #8 tab Patient Education Materials: COPD (Chronic Obstructive Pulmonary Disease) (ED) Referrals: Loraine Encarnacion MD [Primary Care Provider] - 3 Days Additional Instructions: FOLLOW UP WITH YOUR PRIMARY CARE PROVIDER WITHIN ONE WEEK FOR COPD EXACERBATION NOTED TODAY. RETURN TO THE ED FOR ANY WORSENING OR NEW SYMPTOMS. - Billing Disposition and Condition Condition: STABLE Disposition: Home - Attestation Statements Document Initiated by Scribe: Yes Documenting Scribe: Rah Alcazar Provider For Whom Sandor is Documenting (Include Credential): Lavon Cherry MD. Scribe Attestation: Rah Winn scribed for Lavon Cherry MD. on 07/16/19 at 1829. Scribe Documentation Reviewed: Yes Provider Attestation: The documentation as recorded by the scribRah quintero accurately reflects the service I personally performed and the decisions made by , Lavon Cherry MD. Status of Scribe Document: Viewed
[2019-07-15 13:38] LABS: ABS Basophils 0.1 10^3/ul (0-0.2); ABS Lymphocytes 1.1 10^3/ul (1.0-4.8); ABS Monocytes 1.3 10^3/ul (0-0.8); ABS Neutrophils 11.9 10^3/ul (1.5-7.7); Eosinophil % 0.3 %; Hematocrit 35 % (35-47); Hemoglobin 11.4 g/dL (12.0-16.0); Lymphocyte % 7.4 %; Mean Corpuscular HGB Conc 33 g/dL (31-36); Mean Corpuscular Hemoglobin 29 pg (27-31); Mean Corpuscular Volume 89 fL (80-97); Mean Platelet Volume 6.1 fL (7.4-10.4); Platelet Count 287 10^3/uL (150-450); Red Blood Count 3.92 10^6 /uL (3.70-4.87); Red Cell Distribution Width 15 % (10-15); White Blood Count 14.4 10^3/uL (3.5-10.8)
[2019-07-15 13:59] LABS: Troponin I 0.01 ng/mL (<0.04)
[2019-07-15 14:01] LABS: Albumin 3.7 g/dL (3.2-5.2); Albumin/Globulin Ratio 1.2 (1-3); BUN/Creatinine Ratio 14.1 (8-20); CKMB ng/mL 1.2 ng/mL (0.6-6.3); Calcium 9.1 mg/dL (8.6-10.3); EGFR African American 71.4 (>60); Globulin 3.1 g/dL (2-4); Potassium 3.5 mmol/L (3.5-5.0); Total Bilirubin 1.1 mg/dL (0.2-1.0); Total Protein 6.8 g/dL (6.4-8.9)
--- OUTSIDE RECORDS SUMMARY | 2019-07-15 14:07 | XMS REPORT | Continuity of Care Document ---
:1940 External Reference #:[id number] Author Name Loraine Encarnacion M.D. Address [address] [place] [address] Care Team Providers Name Role Phone Loraine Encarnacion - Family Medicine Care Team Information [employer] Examiner Problems Active Problems Provider Date Benign essential hypertension Jeff Ramirez M.D. Onset: 11/27/2005 Chronic obstructive lung disease Jeff Ramirez M.D. Onset: 02/26/2006 Social History Type Date Description Comments Sex Unknown Tobacco Use Start: Unknown End: Former Cigarette Smoker stopped 12/2017. Unknown Used to smoke 11pd x 60 years. ETOH Use Currently consumes 3 beers per day. alcohol Tobacco Use Start: Unknown End: Patient is a former stopped 12/2016. 1 Unknown smoker ppd x 60 years. Smoking Status Reviewed: 03/29/19 Patient is a former stopped 12/2016. 1 smoker ppd x 60 years. Exercise Does not exercise Type/Frequency Allergies, Adverse Reactions, Alerts Description No Known Drug Allergies Medications Active Medications SIG Qnty Indications Ordering Date Provider Lisinopril 1 by mouth every 90tabs Loraine Stewart 03/29/2019 10mg day Jazmine Encarnacion Tablets Albuterol Sulfate 2 puffs every 4 8.500gm Loraine Stewart 03/29/2019 HFA hours as needed Jazmine Encarnacion 108(90Base) mcg/Act Aerosol Physical Therapy evaluate and treat M25.519 Loraine Stewart 03/29/2019 bilateral shoulder Jazmine Encarnacion and back pain Vitamin B12 1 by mouth every 90tabs Raquel 1000mcg day [place], [employer] MANAGER Tablets ER Trazodone HCL 1 -2 by mouth 180tabs Loraine Stewart 50mg every night at Jazmine Encarnacion Tablets bedtime as needed insomnia Nicotine Mini 1 lozenge q2hrs as 486units Loraine Stewart 4mg needed for Jazmine Encarnacion Lozenges nicotine replacement Tylenol prn Unknown 325mg Tablets Paroxetine HCL 1 by mouth every 90tabs Loraine Stewart 20mg day Jazmine Encarnacion Tablets Hydroxyzine HCL take one tablet by Unknown q 3hrs 25mg Tablets Aspirin [address] Atorvastatin 1 by mouth every Unknown Calcium day 80mg Tablets Clopidogrel 1 by mouth every Unknown Bisulfate day 75mg Tablets Spiriva Handihaler inhale contents Unknown one of capsule by 18mcg Capsules mouth daily Ipratropium use bid- three Unknown [place]/Albuterol times a day in Sulfate nebulizer as needed 0.5-2.5(3)mg/3ML Solution History Medications Benzonatate 1 capsule by 60caps Loraine Encarnacion, 01/25/2019 - 100mg mouth twice daily M.DRadha 03/29/2019 Capsules for cough Immunizations CPT Code Status Date Vaccine Lot # [id number] Given 08/03/2018 Pneumococcal Conjugate Vacc-13 [id number] Given 08/03/2018 High-Dose, Influenza Virus Vacccine-fluzone 65 and [id number] older Vital Signs Date Vital Result Comment 07/05/2019 1:49pm BP Systolic 120 mmHg BP Diastolic 74 mmHg Heart Rate 72 /min Body Temperature 97.7 F Respiratory Rate 22 /min O2 % BldC Oximetry 95 % Height 64 inches 5'4" Weight 140.00 lb BMI (Body Mass Index) 24.0 kg/m2 03/29/2019 2:05pm BP Systolic 180 mmHg BP Diastolic 90 mmHg BP Systolic Recheck 180 mmHg BP Diastolic Recheck 80 mmHg Heart Rate 92 /min Body Temperature 97.5 F Height 64 inches 5'4" Weight 133.00 lb BMI (Body Mass Index) 22.8 kg/m2 Results Test Date Facility Test Result H/L Range Note Laboratory test Family Medicine Hemoglobin A1c 5.6 % 4.1-5.7 finding 9 (607)- - ([facility]) Laboratory test Osavldo Dang([facility]) TSH 2.32 mIU/L 0.50-6.00 finding 9 Comprehensive [facility](a) Sodium 138 mEq/L 134-149 Metabolic Prof 9 Potassium 5.0 mEq/L 3.6-5.5 Chloride 98 mEq/L 94-112 Carbon Dioxide 29 mEq/L 21-32 Glucose 122 mg/dL High 70-105 1 BUN 8 mg/dL 6-26 Creatinine 0.8 mg/dL 0.6-1.4 BUN/Creat Ratio 10.0 CALC 8.0-36.0 Calcium 9.8 mg/dL 8.6-10.2 Total Protein 8.3 g/dL 6.4-8.3 Albumin 4.2 g/dL 3.8-5.5 Globulin 4.1 g/dL 2.0-4.8 A/G Ratio 1.0 CALC 0.6-2.3 Alk. Phosphatase 68 U/L 30-110 Alt (SGPT) 8 U/L 7-35 Ast (Sgot) 21 U/L 5-34 Total Bilirubin 0.7 mg/dL 0.2-1.3 GFR Non- >60 ml/min/1.73m^ >=60 GFR >60 ml/min/1.73m^ >=60 Lipid Profile 02/14/2019 [facility]ang([facility]) Cholesterol 206 mg/dL High 120-200 Triglycerides 126 mg/dL 30-200 HDL Cholesterol 70 mg/dL 30-85 LDL (Calculated) 111 CALC 0-129 VLDL Cholesterol 25 mg/dL 0-50 HDL Risk Factor 2.9 CALC 0.0-4.4 CBC Electronic a 02/14/2019 [facility]ang(a) WBC 6.2 x10^3/UL 4.0- 10.0 RBC 4.66 x10^6/UL 3.93-6.00 HGB 12.5 g/dL 12.0-17.0 HCT 40 % 35-50 MCV 85.4 fL 80.0-95.0 MCH 26.8 pg 25.6-32.2 MCHC 31.2 g/dL Low 32.2-36.0 2 RDW-CV 15.1 % High 11.6-14.4 PLT 383 x10^3/UL 163-400 MPV 9.9 fL 9.4-12.4 Jenny# 3.13 x10^3/UL 1.56-6.13 Lymph# 1.91 x10^3/UL 1.18-3.74 [place]# 0.82 x10^3/UL 0.24-0.82 Eos # 0.2 x10^3/UL 0.0-0.5 Baso # 0.09 x10^3/UL High 0.01-0.08 Jenny% 50.8 % 34.0-70.0 Lymph % 31.1 % 20.0-52.0 [place]% 13.3 % High 5.0-12.0 Eos% 3.1 % 0.7-7.0 Baso% 1.5 % High 0.1-1.2 1 NON-FASTING 2 RESULTS VERIFIED BY REPEAT ANALYSIS Procedures Date Code Description Status 01/11/2019 54510 Brief Emotional/Behav Assessment W/ Scoring Doc Per Completed Standard Inst 08/09/2018 13228180 Mammogram Completed Medical Devices Description No Information Available Encounters Type Date Location Provider Dx Diagnosis Office Visit 03/29/2019 [facility] Office Loraine Stewart I1James Essential (primary) 1:40p Jazmine Encarnacion hypertension J44.9 Chronic obstructive pulmonary disease, unspecified F41.9 Anxiety disorder, unspecified M25.519 Pain in unspecified shoulder R73.01 Impaired fasting glucose Office Visit 01/11/2019 12:00p [facility] Office Loraine Stewart Z00.00 Encntr for Jazmine Encarnacion general adult medical exam w/o abnormal findings I10 Essential (primary) hypertension J44.9 Chronic obstructive pulmonary disease, unspecified N64.4 Mastodynia I65.21 Occlusion and stenosis of right carotid artery R53.83 Other fatigue Assessments Date Code Description Provider 07/05/2019 R73.01 Impaired fasting glucose Loraine Encarnacion M.D. 07/05/2019 R53.83 Other fatigue Loraine Encarnacion M.D. 07/05/2019 I10 Essential (primary) hypertension Loraine Encarnacion M.D. 07/05/2019 J44.9 Chronic obstructive pulmonary disease, Loraine Encarnacion M.D. unspecified 03/29/2019 I10 Essential (primary) hypertension Loraine Encarnacion M.D. 03/29/2019 J44.9 Chronic obstructive pulmonary disease, Loraine Encarnacion M.D. unspecified 03/29/2019 F41.9 Anxiety disorder, unspecified Loraine Encarnacion M.D. 03/29/2019 M25.519 Pain in unspecified shoulder Loraine Encarnacion M.D. 03/29/2019 R73.01 Impaired fasting glucose Loraine Encarnacion M.D. 02/14/2019 R53.83 Other fatigue Loraine Encarnacion M.D. 02/14/2019 I65.21 Occlusion and stenosis of right carotid Loraine Encarnacion M.D. artery 01/11/2019 Z00.00 Encounter for general adult medical Loraine Encarnacion M.D. examination without abno 01/11/2019 I10 Essential (primary) hypertension Loraine Encarnacion M.D. 01/11/2019 J44.9 Chronic obstructive pulmonary disease, Loraine Encarnacion M.D. unspecified 01/11/2019 N64.4 Mastodynia Loraine Encarnacion M.D. 01/11/2019 I65.21 Occlusion and stenosis of right carotid Loraine Encarnacion M.D. artery 01/11/2019 R53.83 Other fatigue Loraine Encarnacion M.D. Plan of Treatment 03/29/2019 - Loraine Encarnacion M.D.I10 Essential (primary) hypertensionComments :not well controlled today because you didn't take your blood pressure medicine. Call me for a refill before you run out of medicine enxt time. You will go to the ER if you develop symptoms of Chest pain, unusual sob, abd pain, weakness, breaking out in a sweat, anything unusual.J44.9 Chronic obstructive pulmonary disease, unspecifiedComments:refill albuterol (proair)keep your appointment with Dr. De La Rosa up:3 months.F41.9 Anxiety disorder, unspecifiedComments:refilled paroxetine.M25.519 Pain in unspecified shoulderNew Medication:Physical Therapy - evaluate and treat bilateral shoulder and back painComments:refer to PTR73.01 Impaired fasting glucoseComments:Your blood sugar is a little high today, but not so high as to be diabetes. It is prediabetes. WE will do a blood test while waiting for me at your next appointment.AllComments:Medication Management Patient Understands medications she's taking? Yes No Are there Barriers to Adherence? Yes No Has the patient been asked about herbal supplements and therapies, and OTC meds? Yes No Functional Status Description No Information Available Mental Status Description No Information Available Referrals Description No Information Available
--- OUTSIDE RECORDS SUMMARY | 2019-07-15 14:07 | XMS REPORT | Continuity of Care Document ---
:1940 External Reference #:[id number] Author Name Jeffery Serra, OD Address [address] [place] [address] Care Team Providers Name Role Phone Bhupinder Cruz MD Care Team Information [employer] Developer Unavailable Bhupinder Cruz MD Primary Care Physician Unavailable Payers Date Identification Numbers Payment Provider Subscriber Policy Number: [id number] Medicare [place] [employer] PayID: [id number] [address] [place] [address] Policy Number: [id number] [facility] [employer] Frias PayID: [id number] Bill#[id number] [place] [address] Problems Active Problems Provider Date Nuclear senile cataract Jeffery Grimaldo O.D. Onset: 03/16/2015 Hypermetropia Jeffery Grimaldo O.D. Onset: 03/16/2015 Regular astigmatism Jeffery Grimaldo O.D. Onset: 03/16/2015 Presbyopia Jeffery Grimaldo O.D. Onset: 03/16/2015 Vitreous degeneration Jeffery Grimaldo O.D. Onset: 03/16/2015 Tear film insufficiency Jeffery Grimaldo O.D. Onset: 03/16/2015 Chronic allergic conjunctivitis Jeffery Grimaldo O.D. Onset: 06/28/2015 Status Post Surgery Jeffery Grimaldo O.D. Onset: 04/24/2015 Lens Replaced By Other Means Jeffery Grimaldo O.D. Onset: 04/24/2015 Family History Date Family Member(s) Observation Comments General Noncontributory Father Unknown Father Cataract Mother Unknown Mother Glasses Social History Type Date Description Comments Sex Unknown ETOH Use Currently consumes alcohol ETOH Use Occasionally consumes alcohol Tobacco Use Start: Unknown End: Unknown Patient is a former smoker Smoking Status Reviewed: 05/20/19 Patient is a former smoker Allergies, Adverse Reactions, Alerts Active Allergies Reaction Severity Comments Date NKDA 06/28/2015 Bee Stings 03/16/2015 Medications Active Medications SIG Qnty Indications Ordering Date Provider Patanol 1 drop both 5ml 372.14 Jeffery Dillan, 06/28/2015 0.1% Solution eyes twice a O.D. day during allergy season Paroxetine HCL Unknown 10mg Tablets Cheratussin ac Unknown 100-10mg/5ML Syrup Ventolin HFA Unknown 108(90Base) mcg/Act Aerosol Spiriva Handihaler Unknown 18mcg Capsules Lisinopril Unknown 10mg Tablets Hydrochlorothiazide Unknown 25mg Tablets Citalopram Hydrobromide Unknown 40mg Tablets Omeprazole Unknown 20mg Capsules DR Peg 3350/Electrolytes Unknown 240gm Solution Rec Pantoprazole Sodium Unknown 20mg Tablets DR Fluconazole Unknown 150mg Tablets Proair HFA Unknown 108(90Base) mcg/Act Aerosol Ipratropium Unknown [place]/Albuterol Sulfate 0.5-2.5(3)mg/3ML Solution Trazodone HCL Unknown 50mg Tablets Ranitidine HCL Unknown 150mg Tablets Paroxetine HCL Unknown 40mg Tablets Spiriva Handihaler Unknown 18mcg Capsules Ventolin HFA Unknown 108(90Base) mcg/Act Aerosol Trazodone HCL Unknown 50mg Tablets Lisinopril Unknown 10mg Tablets Hydrochlorothiazide Unknown 25mg Tablets Clopidogrel Bisulfate Unknown 75mg Tablets Atorvastatin Calcium Unknown 80mg Tablets History Medications Pred Forte 1 drops right 10ml Fred Singletary, 03/29/2015 - 1% Suspension eye four times M.D. 03/11/2018 a day Ketorolac Tromethamine 1 drops right 10ml Fred Singletary, 03/29/2015 - 0.5% eye twice a day M.D. 03/11/2018 Solution Vigamox 1 drop drops 5ml Fred Singletary 03/29/2015 - 0.5% Solution right eye four M.D. 04/24/2015 times a day Paroxetine HCL Unknown - 20mg Tablets 03/11/2018 Amoxicillin Unknown - 500mg Capsules 03/11/2018 Clarithromycin Unknown - 500mg Tablets 03/11/2018 Prednisolone Acetate Unknown - 1% 03/11/2018 Suspension Ketorolac Tromethamine Unknown - 0.5% 03/11/2018 Solution Vigamox Unknown - 0.5% Solution 03/11/2018 Paroxetine HCL Unknown - 20mg Tablets 03/11/2018 Atorvastatin Calcium Unknown - 80mg 03/11/2018 Tablets Clopidogrel Bisulfate Unknown - 75mg 03/11/2018 Tablets Vital Signs Date Vital Result Comment 03/11/2018 2:05pm Intraocular Pressure Right Eye 20 mmHg Intraocular Pressure Left Eye 19 mmHg 04/24/2015 10:58am Intraocular Pressure Right Eye 14 mmHg Intraocular Pressure Left Eye 14 mmHg 04/11/2015 9:32am Intraocular Pressure Right Eye 13 mmHg 03/21/2015 11:16am Intraocular Pressure Right Eye 18 mmHg Intraocular Pressure Left Eye 18 mmHg Procedures Date Code Description Status 11/18/2018 13742 Remove Secondary Cataract, Laser (Yag) Completed 04/23/2018 23892 Remove Secondary Cataract, Laser (Yag) Completed 03/11/2018 90662 Ophthalmoscopy Subsequent Completed 03/11/2018 75838 Eye Exam Est Intermediate Completed 04/17/2015 50804 Extracapsular Cataract Extraction W/Intraocular Lens Completed 04/10/2015 27746 Extracapsular Cataract Extraction W/Intraocular Lens Completed 03/21/2015 42165 Ophthalmic Biometry By Partial Coherence Interferometry Completed W/Intra 03/21/2015 24978 Eye Exam Est Intermediate Completed 03/16/2015 12001 Eye Exam New Comprehensive Completed Encounters Type Date Location Provider Dx Diagnosis Office Visit 06/28/2015 Main Office Jeffery Grimaldo, 372.14 Conjunctivitis Chronic 9:00a O.D. Allergic Other
[2019-07-15 15:49] VITALS: BP 124/64
== END 2019-07-15 15:49 | disposition home or self-care (01) ==
LOC: ED 12:59
DX: J44.1 Chronic obstructive pulmonary disease with (acute) exacerbation (principal); Z87.891 Personal history of nicotine dependence; I25.10 Atherosclerotic heart disease of native coronary artery without angina pectoris; I10 Essential (primary) hypertension; I73.9 Peripheral vascular disease, unspecified; Z79.02 Long term (current) use of antithrombotics/antiplatelets; F41.9 Anxiety disorder, unspecified; Z79.899 Other long term (current) drug therapy; F32.9 Major depressive disorder, single episode, unspecified
CPT/HCPCS: 36415; 71046; 80053; 82550; 82553; 82803; 83605; 83880; 84484; 85025; 86140; 87040; 93005; 96374; 99283; A9270-GY; J2930

== ENCOUNTER 2021-02-19 16:33 | Inpatient (IN) ==
[2021-02-19 18:03] LABS: Influenza A Molecular Negative (Negative); Influenza B Molecular Negative (Negative)
[2021-02-19 18:16] LABS: ABS Basophils 0.1 10^3/ul (0-0.2); ABS Eosinophils 0.3 10^3/ul (0-0.6); ABS Lymphocytes 0.9 10^3/ul (1.0-4.8); ABS Monocytes 0.9 10^3/ul (0-0.8); ABS Neutrophils 12.1 10^3/ul (1.5-7.7); Eosinophil % 2.1 %; Hematocrit 37 % (35-47); Hemoglobin 11.7 g/dL (12.0-16.0); Lymphocyte % 6.3 %; Mean Corpuscular HGB Conc 32 g/dL (31-36); Mean Corpuscular Hemoglobin 27 pg (27-31); Mean Corpuscular Volume 85 fL (80-97); Mean Platelet Volume 6.2 fL (7.4-10.4); Nucleated Red Blood Cells % 0.1; Platelet Count 489 10^3/uL (150-450); Red Blood Count 4.33 10^6 /uL (3.70-4.87); Red Cell Distribution Width 15 % (10-15); White Blood Count 14.3 10^3/uL (3.5-10.8)
[2021-02-19 18:28] LABS: INR 1.14 (0.82-1.09)
[2021-02-19 18:38] LABS: Troponin I 0.02 ng/mL (<0.03)
[2021-02-19] MEDS ORDERED: cefTRIAXone 1 gm/50 mL NS BAG 1 GM/50 ML BAG IV ONE (18:38)
[2021-02-19] MEDS ORDERED: Azithromycin 500 mg/250 ml NS 500 MG/250 ML BAG IVPB ONE (18:38)
[2021-02-19 18:40] LABS: Albumin 3.2 g/dL (3.2-5.2); Albumin/Globulin Ratio 0.7 (1-3); C Reactive Protein 154.85 mg/L (<8.01); Calcium 9.2 mg/dL (8.6-10.3); EGFR African American 70.4 (>60); EGFR Non-African American 58.2 (>60); Globulin 4.4 g/dL (2-4); Magnesium 1.6 mg/dL (1.9-2.7); Potassium 2.8 mmol/L (3.5-5.0); Total Bilirubin 0.4 mg/dL (0.2-1.0); Total Protein 7.6 g/dL (6.4-8.9)
[2021-02-19] MEDS ORDERED: KCL 20 MEQ/100 ML IVPREMIX 20 MEQ/100 ML BAG IV ONE (18:46)
[2021-02-19] MEDS ORDERED: Magnesium Sulfate 2 gm BAG 2 GM/50 ML BAG IVPB ONE (18:46)
[2021-02-19] MEDS ORDERED: methylPREDNISolone 125 mg 2 ML VIAL IV ONE (20:37)
[2021-02-19] MEDS ORDERED: hydrALAZINE 20 mg/ml 1 ML Vial IV IV SLOW PU PRN (20:54)
[2021-02-19] MEDS ORDERED: Potassium Chlor 20 meq TAB.ER PO ONE (20:56)
[2021-02-19] MEDS: methylPREDNISolone 125 mg 2 ML VIAL IV SCH (23:32)
[2021-02-19] MEDS: Heparin 5000 UNITS/ML 1 mL VIAL SUBCUT SCH (23:37)
[2021-02-19] MEDS: Mometasone/Formoter 200/5 MDI INH SCH (23:50)
[2021-02-19] MEDS: Albuterol HFA INHALER 8 gm MDI INH SCH (23:53)
[2021-02-20] MEDS: Albuterol HFA INHALER 8 gm MDI INH SCH ×6 (00:01→19:27)
[2021-02-20 05:47] LABS: ABS Lymphocytes 0.6 10^3/ul (1.0-4.8); ABS Monocytes 0.2 10^3/ul (0-0.8); Hematocrit 36 % (35-47); Hemoglobin 11.8 g/dL (12.0-16.0); Lymphocyte % 3.6 %; Mean Corpuscular HGB Conc 33 g/dL (31-36); Mean Corpuscular Hemoglobin 28 pg (27-31); Mean Corpuscular Volume 84 fL (80-97); Mean Platelet Volume 6.3 fL (7.4-10.4); Platelet Count 457 10^3/uL (150-450); Red Blood Count 4.26 10^6 /uL (3.70-4.87); Red Cell Distribution Width 16 % (10-15); White Blood Count 16.8 10^3/uL (3.5-10.8)
[2021-02-20] MEDS: Heparin 5000 UNITS/ML 1 mL VIAL SUBCUT SCH ×3 (05:47→22:12)
[2021-02-20 05:55] LABS: INR 1.15 (0.82-1.09)
[2021-02-20 06:08] LABS: Calcium 8.9 mg/dL (8.6-10.3); EGFR African American 67.8 (>60); EGFR Non-African American 56.1 (>60); Potassium 3.9 mmol/L (3.5-5.0)
[2021-02-20] MEDS: Mometasone/Formoter 200/5 MDI INH SCH ×2 (07:26→19:30)
[2021-02-20] MEDS: SPIRIVA Respimat (tiotropium) 2.5 mcg/inh Inhaler INH SCH (07:26)
[2021-02-20] MEDS: methylPREDNISolone 125 mg 2 ML VIAL IV SCH ×2 (08:09→22:00)
[2021-02-20] MEDS: Albuterol/Ipratropium NEB.SOL (2.5/0.5 MG) 3 ML NEB.SOLN INH SCH ×2 (19:22→22:09)
[2021-02-20] MEDS ORDERED: cefTRIAXone 1 gm/50 mL NS BAG 1 GM/50 ML BAG IVPB SCH (20:00)
[2021-02-20] MEDS ORDERED: Azithromycin 500 mg/250 ml NS 500 MG/250 ML BAG IVPB SCH (21:00)
[2021-02-20] MEDS ORDERED: Albuterol HFA INHALER 8 gm MDI INH PRN (21:29)
[2021-02-21] MEDS: Albuterol/Ipratropium NEB.SOL (2.5/0.5 MG) 3 ML NEB.SOLN INH SCH ×2 (02:18→09:03)
[2021-02-21] MEDS: Heparin 5000 UNITS/ML 1 mL VIAL SUBCUT SCH (05:33)
[2021-02-21 05:36] LABS: Calcium 8.5 mg/dL (8.6-10.3); EGFR African American 61.9 (>60); EGFR Non-African American 51.1 (>60); Potassium 3.6 mmol/L (3.5-5.0)
[2021-02-21] MEDS ORDERED: Albuterol/Ipratropium NEB.SOL (2.5/0.5 MG) 3 ML NEB.SOLN INH SCH ×2 (07:00→13:00)
[2021-02-21] MEDS: Mometasone/Formoter 200/5 MDI INH SCH (07:11)
[2021-02-21] MEDS: SPIRIVA Respimat (tiotropium) 2.5 mcg/inh Inhaler INH SCH (07:12)
[2021-02-21] MEDS: methylPREDNISolone 125 mg 2 ML VIAL IV SCH (10:02)
[2021-02-21 11:52] VITALS: BP 144/60
== END 2021-02-21 13:45 | disposition home or self-care (01) | DRG 871 ==
LOC: ED 16:33 → MED 22:47
PROVIDERS: ADMIT Internal Medicine; ATTEND Student in an Organized Health Care Education/Training Program

== ENCOUNTER 2021-04-08 19:33 | Inpatient (IN) ==
[2021-04-08] MEDS ORDERED: Dexamethasone IV 4 MG/ML VIAL 1 ml VIAL IM ONE (19:41)
[2021-04-08] MEDS ORDERED: Albuterol 0.5% CONC CONTINUOUS NEB.SOL 5 mg/ml 20 ml BOT INH ONE (19:41)
[2021-04-08] MEDS ORDERED: Piperacillin/Tazobac PREMIX(*) 3.375 GM in Premix IV 50 ML IVPB ONE (19:41)
[2021-04-08] MEDS ORDERED: Morphine 2 MG/ML SYRINGE IV ONE (19:41)
[2021-04-08] MEDS ORDERED: Albuterol/Ipratropium NEB.SOL (2.5/0.5 MG) 3 ML NEB.SOLN ONE (19:51)
[2021-04-08 20:00] LABS: Hematocrit 29 % (35-47); Mean Corpuscular HGB Conc 31 g/dL (31-36); Mean Corpuscular Hemoglobin 27 pg (27-31); Mean Corpuscular Volume 85 fL (80-97); Mean Platelet Volume 7.4 fL (7.4-10.4); Platelet Count 233 10^3/uL (150-450); Red Cell Distribution Width 20 % (10-15); White Blood Count 21.4 10^3/uL (3.5-10.8)
[2021-04-08] MEDS ORDERED: Zosyn 3.375 GM IV - ED ONCE IV ONE (20:00)
[2021-04-08] MEDS ORDERED: Albuterol/Ipratropium NEB.SOL (2.5/0.5 MG) 3 ML NEB.SOLN INH ONE (20:02)
[2021-04-08 20:05] LABS: ABS Basophils 0.1 10^3/ul (0-0.2); ABS Eosinophils 0.1 10^3/ul (0-0.6); ABS Lymphocytes 1.2 10^3/ul (1.0-4.8); ABS Monocytes 1.5 10^3/ul (0-0.8); ABS Neutrophils 18.5 10^3/ul (1.5-7.7); Eosinophil % 0.3 %; Lymphocyte % 5.7 %; Nucleated Red Blood Cells % 0.1
[2021-04-08 20:11] LABS: Albumin 2.8 g/dL (3.2-5.2); Anion Gap 13 mmol/L (2-11); CO2 Carbon Dioxide 25 mmol/L (22-32); Chloride 92 mmol/L (101-111); Potassium 4.2 mmol/L (3.5-5.0); Sodium 130 mmol/L (135-145)
[2021-04-08 20:17] LABS: ALT 15 U/L (7-52); AST 34 U/L (13-39); Albumin/Globulin Ratio 0.7 (1-3); Alkaline Phosphatase 71 U/L (35-149); Blood Urea Nitrogen 67 mg/dL (6-24); EGFR African American 15.4 (>60); EGFR Non-African American 12.7 (>60); Glucose 259 mg/dL (70-100); Total Protein 6.8 g/dL (6.4-8.9)
[2021-04-08 20:21] LABS: Troponin I 0.21 ng/mL (<0.03)
[2021-04-08] MEDS ORDERED: Metoprolol Tartrate 5 mg VIAL 5 ml VIAL (1 mg/ml) IV ONE (20:49)
[2021-04-08] MEDS ORDERED: Azithromycin 500 mg/250 ml NS 500 MG/250 ML BAG IVPB ONE (20:51)
[2021-04-08] MEDS ORDERED: Albuterol/Ipratropium NEB.SOL (2.5/0.5 MG) 3 ML NEB.SOLN INH SCH (21:00)
[2021-04-08] MEDS ORDERED: Zosyn per Pharmacy NOTE FOLLOW UP SCH (22:00)
[2021-04-08] MEDS: Linezolid 600 MG IVPREMIX(*) 600 MG/300 ML BAG IVPB SCH (22:32)
[2021-04-08] MEDS: Albuterol/Ipratropium NEB.SOL (2.5/0.5 MG) 3 ML NEB.SOLN INH SCH (23:27)
[2021-04-08 23:33] LABS: Urine Appearance Cloudy; Urine Bilirubin Negative (Negative); Urine Blood 3+ (Negative); Urine Color Yellow; Urine Glucose 1+(50 mg/dL) (Negative); Urine Ketones Negative (Negative); Urine Nitrite Negative (Negative); Urine Protein 3+(>=500 mg/dL) (Negative); Urine Specific Gravity 1.014 (1.002-1.030); Urine Urobilinogen Negative (Negative)
[2021-04-08 23:37] LABS: Urine Bacteria Absent (Absent); Urine Red Blood Cell 3+(>10/hpf) (Absent); Urine Squamous Epithelial Cell Present (Absent); Urine White Blood Cell Trace(0-5/hpf) (Absent)
[2021-04-08 23:40] LABS: C Reactive Protein 168.57 mg/L (<8.01); Magnesium 2.2 mg/dL (1.9-2.7); Phosphorus 7.9 mg/dL (2.5-5.0)
[2021-04-08] MEDS: ZOSYN 3.375 GM Q12H per EXTENDED INFUSION IV SCH (23:44)
[2021-04-09 01:27] LABS: Troponin I 0.29 ng/mL (<0.03)
[2021-04-09] MEDS ORDERED: Metoprolol Tartrate 5 mg VIAL 5 ml VIAL (1 mg/ml) IV PRN (01:40)
[2021-04-09] MEDS ORDERED: NORMOSOL-R pH 7.4 1000 mL BAG 500 ML IV ONE (02:00)
[2021-04-09] MEDS: Albuterol/Ipratropium NEB.SOL (2.5/0.5 MG) 3 ML NEB.SOLN INH SCH ×6 (03:32→23:09)
[2021-04-09] MEDS: methylPREDNISolone SOD 40 mg/ml 1 ml VIAL IV SCH ×3 (05:04→20:36)
[2021-04-09 05:10] LABS: Polychromasia 1+; Schistocytes 2+
[2021-04-09 05:35] LABS: Hematocrit 25 % (35-47); Hemoglobin 8.1 g/dL (12.0-16.0); Mean Corpuscular HGB Conc 32 g/dL (31-36); Mean Corpuscular Hemoglobin 27 pg (27-31); Mean Corpuscular Volume 85 fL (80-97); Mean Platelet Volume 7.2 fL (7.4-10.4); Platelet Count 156 10^3/uL (150-450); Red Blood Count 2.95 10^6 /uL (3.70-4.87); Red Cell Distribution Width 20 % (10-15); White Blood Count 21.2 10^3/uL (3.5-10.8)
[2021-04-09 05:56] LABS: Albumin 2.6 g/dL (3.2-5.2); CO2 Carbon Dioxide 19 mmol/L (22-32); Calcium 7.8 mg/dL (8.6-10.3); Chloride 94 mmol/L (101-111); Sodium 130 mmol/L (135-145)
[2021-04-09] MEDS ORDERED: NORMOSOL-R pH 7.4 1000 mL BAG 1,000 ML IV SCH (06:00)
[2021-04-09 06:03] LABS: ALT 15 U/L (7-52); Albumin/Globulin Ratio 0.8 (1-3); Alkaline Phosphatase 62 U/L (35-149); Blood Urea Nitrogen 69 mg/dL (6-24); Creatine Kinase 71 U/L (10-223); EGFR African American 15.1 (>60); EGFR Non-African American 12.4 (>60); Globulin 3.4 g/dL (2-4); Glucose 154 mg/dL (70-100); Phosphorus 8.6 mg/dL (2.5-5.0)
[2021-04-09 06:11] LABS: Anion Gap 17 mmol/L (2-11)
[2021-04-09 06:59] LABS: Troponin I 0.24 ng/mL (<0.03)
[2021-04-09] MEDS ORDERED: NORMOSOL-R pH 7.4 1000 mL BAG 1,000 ML IV ONE (07:00)
[2021-04-09] MEDS: Mometasone/Formoter 100/5 MDI INH SCH ×2 (07:02→19:49)
[2021-04-09 07:03] LABS: Magnesium 2.3 mg/dL (1.9-2.7)
[2021-04-09 07:06] LABS: Potassium Redraw 5.2 mmol/L (3.5-5.0)
[2021-04-09] MEDS ORDERED: Dextrose 50% Syringe 50 ml 25 GM/50 ML SYRINGE IV PUSH ONE (07:54)
[2021-04-09] MEDS ORDERED: Haloperidol 5 mg/ml SDV IV/IM 5 MG/ML AMP ONE ×2 (07:54→08:06)
[2021-04-09] MEDS ORDERED: Haloperidol 5 mg/ml SDV IV/IM 5 MG/ML AMP IV SLOW PU PRN (07:55)
[2021-04-09] MEDS ORDERED: Dextrose 50% Syringe 50 ml 25 GM/50 ML SYRINGE ONE (08:06)
[2021-04-09] MEDS: Heparin 5000 UNITS/ML 1 mL VIAL SUBCUT SCH ×2 (08:14→20:36)
[2021-04-09 08:26] LABS: ABS Basophils 0.1 10^3/ul (0-0.2); ABS Lymphocytes 0.4 10^3/ul (1.0-4.8); ABS Monocytes 0.8 10^3/ul (0-0.8); Lymphocyte % 1.7 %
[2021-04-09] MEDS ORDERED: Pantoprazole VIAL 40 MG VIAL IV SCH (09:00)
[2021-04-09] MEDS: Linezolid 600 MG IVPREMIX(*) 600 MG/300 ML BAG IVPB SCH ×2 (10:00→22:09)
[2021-04-09] MEDS: ZOSYN 3.375 GM Q12H per EXTENDED INFUSION IV SCH (12:30)
[2021-04-09 13:15] LABS: Erythrocyte Sed Rate 40 mm/Hr (0-29)
[2021-04-09] MEDS ORDERED: cefTRIAXone 1 gm/50 mL NS BAG 1 GM/50 ML BAG IVPB SCH (21:00)
[2021-04-09 21:02] LABS: Calcium 8.1 mg/dL (8.6-10.3); EGFR African American 11.5 (>60); EGFR Non-African American 9.5 (>60); Magnesium 2.5 mg/dL (1.9-2.7); Phosphorus 10.5 mg/dL (2.5-5.0)
[2021-04-09 21:03] LABS: Potassium 5.8 mmol/L (3.5-5.0)
[2021-04-09] MEDS ORDERED: SODIUM ZIRCONIUM CYCLOSILICATE 10 GM PACKET PO ONE (23:11)
[2021-04-09] MEDS ORDERED: Sodium Bicarbonate 8.4% SYR 50 ml SYRINGE IV ONE (23:32)
[2021-04-09] MEDS ORDERED: D5LR 1000 ml BAG 1,000 ML IV SCH (23:45)
[2021-04-10] MEDS: ZOSYN 3.375 GM Q12H per EXTENDED INFUSION IV SCH (00:30)
[2021-04-10] MEDS ORDERED: LORazepam 2 mg VIAL 1 ml IV PUSH PRN ×2 (01:52→02:14)
[2021-04-10] MEDS ORDERED: Lorazepam PYXIS KEY PRN (01:52)
[2021-04-10] MEDS ORDERED: Lorazepam PYXIS KEY ONE (02:14)
[2021-04-10] MEDS ORDERED: LORazepam 2 mg VIAL 1 ml ONE (02:15)
[2021-04-10 03:01] VITALS: BP 80/44
[2021-04-10 14:58] LABS: Myeloperoxidase Antibody <0.2 U; Proteinase 3 <0.2 U
[2021-04-10 15:37] LABS: Anti SSA/RO Antibody >8.0 U; SS-B/La Antibody 2.3 U
== END 2021-04-10 02:30 | disposition expired | DRG 871 ==
LOC: ED 19:33 → MCHOB 20:54 → ICU 21:34 → MERGE 21:38 → ICU 21:38
PROVIDERS: ADMIT Hospitalist; ATTEND Internal Medicine